=== PATIENT | female | born 1995 | race Hispanic/Latino ===

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

== ENCOUNTER 2017-07-11 12:52 | Emergency (ER) | payer OTHER ==
[~2017-07-11] VITALS: Ht 157.5 cm; Wt 53.2 kg
[~2017-07-11 12:52] MED LIST: IRON65TA PO
[2017-07-11 12:53] VITALS: BP 126/67
[2017-07-11] MEDS ORDERED: CELE100C PO (13:03)
[2017-07-11] MEDS ORDERED: KETOROLAC 30 MG/ML VIAL (J1885) IV ONE (13:15)
[2017-07-11] MEDS ORDERED: NS 1,000 ML IV ONE (13:15)
[2017-07-11] MEDS ORDERED: PANTOPRAZOLE 40MG TAB (PROTONIX) PO ONE (13:15)
[2017-07-11] MEDS ORDERED: ONDANSETRON 4MG/2ML VIAL (J2405) IV ONE (13:15)
[2017-07-11] MEDS: MORPHINE 2 MG/ML 1ML SYRINGE IV PRN ×2 (13:34→15:16)
[2017-07-11 13:54] LABS: MEAN CORPUSCULAR VOLUME 87.3 fl (80.0-96.0); WHITE BLOOD COUNT 10.3 10^3/uL (4.0-10.0)
[2017-07-11 13:55] LABS: BASO % 0.3 % (0.0-1.0); EOS # 0.1 10^3/uL (0.0-0.50); EOS % 0.5 % (0.0-3.0); IMMATURE GRANULOCYTE % 0.3 % (0-0); LYMPH # 1.7 10^3/uL (1.5-6.5); LYMPH % 16.2 % (24.0-44.0); MEAN CORPUSCULAR HEMOGLOBIN 28.8 pg (27.0-33.0); MEAN CORPUSCULAR HGB CONC 32.9 g/dl (32.0-36.5); MONO % 10.1 % (0.0-5.0); NEUTROPHILS # 7.5 10^3/uL (1.8-7.7); NEUTROPHILS % 72.6 % (36.0-66.0); PLATELET COUNT, AUTOMATED 308 10^3/uL (150-450); RED CELL DISTRIBUTION WIDTH 11.8 % (11.5-14.5)
[2017-07-11 13:57] LABS: ADD MANUAL DIFFER NO; DIFF SLIDE NUMBER 232
[2017-07-11] MEDS ORDERED: PANTOPRAZOLE 40MG INJ (PROTONIX) (C9113) IV ONE (14:00)
[2017-07-11 14:05] LABS: CONTROL LINE HCG INT CTR LINE PRESENT; INR 0.89
[2017-07-11 14:13] LABS: ALBUMIN 3.5 GM/DL (3.2-5.2); ALBUMIN/GLOBULIN RATIO 0.74 (1.00-1.93); ALKALINE PHOSPHATASE 95 U/L (45-117); ALT/SGPT 22 U/L (12-78); AMYLASE 56 U/L (25-115); ANION GAP 6 MEQ/L (8-16); AST/SGOT 17 U/L (15-37); BILIRUBIN,DIRECT < 0.1 MG/DL (0.0-0.2); BILIRUBIN,TOTAL 0.3 MG/DL (0.2-1.0); BLOOD UREA NITROGEN 10 MG/DL (7-18); CALCIUM LEVEL 8.6 MG/DL (8.5-10.1); CARBON DIOXIDE LEVEL 27 MEQ/L (21-32); CHLORIDE LEVEL 105 MEQ/L (98-107); CREATININE FOR GFR 0.72 MG/DL (0.55-1.02); GLUCOSE, FASTING 77 MG/DL (70-105); POTASSIUM SERUM 3.6 MEQ/L (3.5-5.1); SODIUM LEVEL 138 MEQ/L (136-145); TOTAL PROTEIN 8.2 GM/DL (6.4-8.2)
[2017-07-11] MEDS ORDERED: ISOVUE-370 76% 100ML VIAL (Q9967) As Ordered ONE (14:17)
--- NOTE | 2017-07-11 15:05 | REP ---
CT abdomen and pelvis with IV but without oral contrast: History: Abdominal pain. CT contrast dose: 100 ml of Isovue [address] findings: Preliminary digital physical therapist assistant radiograph of the abdomen demonstrates umbilical jewelry and a normal bowel gas pattern. The lung bases are clear. The liver and the spleen are normal in size and homogeneous in texture. There is a small accessory splenule at the inferior tip of the spleen. No pancreatic abnormality is appreciated. No adrenal lesion is observed. Gallbladder is unremarkable. The kidneys enhance symmetrically and are morphologically intact. No abdominal wall defect is seen. There are areas of a minimal pelvic ascites. A normal appendix is seen. There is, however, mural thickening affecting essentially the entire colon from the cecum around to the rectosigmoid colon. There is also mural thickening in at least two adjacent loops of central abdominal small bowel. This is compatible with enterocolitis. No free air is seen. Urinary bladder is intact. No bony destructive lesion seen. Impression: Enteritis/enterocolitis picture with mural thickening involving two adjacent loops of mid abdominal small bowel as well as most of the colon. Minimal pelvic ascitic fluid. Normal appendix. Signed by Alfred Randhawa MD 07/11/2017 04:44 P
[2017-07-11] MEDS ORDERED: ZOFR4TAB3 PO (15:19)
[2017-07-11] MEDS ORDERED: PROT1TAB2 PO (15:19)
== END 2017-07-11 15:28 | disposition home or self-care (01) ==
LOC: M ED 12:52
DX: A04.9 Bacterial intestinal infection, unspecified (principal); Z79.899 Other long term (current) drug therapy; Z91.040 Latex allergy status
CPT/HCPCS: 74177; 80048; 80076; 81001; 82150; 83690; 84703; 85025; 85610; 87086; 93041; 96361; 96374; 96375; 96376; 99284; C9113; J1885; J2405; Q9967

== ENCOUNTER 2018-12-06 09:19 | Inpatient (IN) | payer OTHER ==
[~2018-12-06] VITALS: Ht 157.5 cm; Wt 58.0 kg
[2018-12-06] MEDS: NICOTINE 21MG/24HR 1 EA TRANSDERMAL TD SCH (09:00)
[~2018-12-06 09:19] MED LIST changes: +CELE100C PO; +PROT1TAB2 PO; +ZOFR4TAB14 PO
[2018-12-06] MEDS ORDERED: TRAZ-160 PO (09:31)
[2018-12-06] MEDS ORDERED: FLUO40CA PO (09:31)
[2018-12-06] MEDS ORDERED: LIDOCAINE 2% W/EPIN INJ 20ML **PRES FREE INJ ONE (10:00)
[2018-12-06 11:20] LABS: AMPHETAMINES LEVEL URINE NEGATIVE (NEGATIVE); BARBITURATES URINE NEGATIVE (NEGATIVE); BENZODIAZEPINES URINE NEGATIVE (NEGATIVE); CANNABINOIDS URINE NEGATIVE (NEGATIVE); COCAINE METABOLITE URINE NEGATIVE (NEGATIVE); METHADONE URINE NEGATIVE (NEGATIVE); OPIATES URINE NEGATIVE (NEGATIVE); PHENCYCLIDINE URINE NEGATIVE (NEGATIVE)
[2018-12-06 11:35] LABS: HEMATOCRIT 38.8 % (36.0-47.0); HEMOGLOBIN 13.6 g/dl (12.0-15.5); MEAN CORPUSCULAR HEMOGLOBIN 31.4 pg (27.0-33.0); MEAN CORPUSCULAR HGB CONC 35.1 g/dl (32.0-36.5); MEAN CORPUSCULAR VOLUME 89.6 fl (80.0-96.0); PLATELET COUNT, AUTOMATED 243 10^3/uL (150-450); RED BLOOD COUNT 4.33 10^6/uL (4.00-5.40); WHITE BLOOD COUNT 6.2 10^3/uL (4.0-10.0)
[2018-12-06] MEDS ORDERED: FLUoxetine 20 MG CAP PO ONE (11:45)
[2018-12-06] MEDS ORDERED: BACITRACIN OINT 30GM TOP ONE (11:45)
[2018-12-06 12:05] LABS: HCG, SERUM QUALITATIVE NEGATIVE (NEGATIVE)
[2018-12-06 12:15] LABS: ACETAMINOPHEN LEVEL < 2.0 UG/ML (10.0-30.0); ALBUMIN 3.8 GM/DL (3.2-5.2); ALT/SGPT 16 U/L (12-78); BILIRUBIN,DIRECT 0.2 MG/DL (0.0-0.2); BILIRUBIN,TOTAL 0.7 MG/DL (0.2-1.0); BLOOD UREA NITROGEN 8 MG/DL (7-18); CALCIUM LEVEL 8.5 MG/DL (8.5-10.1); CARBON DIOXIDE LEVEL 26 MEQ/L (21-32); CHLORIDE LEVEL 107 MEQ/L (98-107); CREATININE FOR GFR 0.54 MG/DL (0.55-1.30); ETHYL ALCOHOL (ETHANOL) < 0.003 % (0.000-0.010); GLOMERULAR FILTRATION RATE > 60.0 (>60); GLUCOSE, FASTING 94 MG/DL (70-100); POTASSIUM SERUM 3.7 MEQ/L (3.5-5.1); SALICYLATE LEVEL < 1.7 MG/DL (5.0-30.0); SODIUM LEVEL 140 MEQ/L (136-145); TOTAL PROTEIN 6.7 GM/DL (6.4-8.2)
[2018-12-06] MEDS ORDERED: VITA100066 PO (12:51)
[2018-12-06] MEDS ORDERED: COLA100C5 PO (12:51)
[2018-12-06] MEDS ORDERED: traZODone 50 MG TAB PO PRN (14:45)
[2018-12-06] MEDS ORDERED: ACETAMINOPHEN TAB 650MG DOSE (2X325MG) PO PRN (14:45)
[2018-12-06] MEDS ORDERED: MAALOX 30 ML SUSP *UDC PO PRN (14:45)
[2018-12-06] MEDS ORDERED: MOM 30ML SUSPENSION UDC PO PRN (14:45)
[2018-12-06 16:21] VITALS: BP 107/58
[2018-12-07 06:37] VITALS: BP 111/57
[2018-12-07] MEDS: NICOTINE 21MG/24HR 1 EA TRANSDERMAL TD SCH (08:27)
--- NOTE | 2018-12-07 09:14 | HPEPDOC ---
[facility] Medical History & Physical Date of Admission Dec 06, 2018 History and Physical PCP: [facility] ATTENDING: Dr. Robbie Arevalo HPI: 23yoF admitted to [facility] for unspecified depressive disorder, being medically examined today. No acute medical complaints today. Pt with laceration/sutures intact Lt AC. Denies any fevers, chills, weakness, fatigue, JANE, CP, SOB, cough, palpitations, abdominal pain, N/V/D or changes in bowel or bladder habits. PMHx: Anxiety depression insomnia PTSD H/O SI/SA, cutting Lt AC 12/06/18, attempted OD 2 weeks ago on deployment in [place] with Prozac/Oxy with inpt Psych in [place]. PSHX: D&C 2014. 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 Tobacco use: denies ETOH: denies Illicit Drugs: H/O oxycodone/hydrocodone 2015. IV Drug Use: Denies Tattoos done unprofessionally: Denies FAMHX: Mother: Alive, well Father: unknown Siblings: 2 brothers, 1 sister Alive, well Children: none Unexpected deaths due to medical reasons: None. ROS: As noted in HPI, otherwise 11pt ROS of systems reviewed and remarkable only for LMP 12/18 per pt. States cycles are irregular. PE: GEN: 23yoF, appears stated age. Well-nourished, well developed. No acute distress. Alert and oriented x 3. Pleasant, interactive. HEENT: Normocephalic, atraumatic. Pupils are equal, round, and reactive to light. Extraocular movements are intact. No nystagmus appreciated. Sclera are nonicteric. Conjunctiva without injection. Nose midline. Nasal turbinates without bogginess. EACs both patent BL. TMs both visualized and [place] with good cone of light, no bulging or erythema. No facial asymmetry. Moist mucous membranes. Dentition fair. Pharynx pink and moist, no cobblestoning. Neck supple, trachea midline. No lymphadenopathy or thyromegaly appreciated. CHEST: Regular rate and rhythm, +S1, +S2 LUNGS: Clear to auscultation bilaterally. No wheezes, rales, or rhonchi. Breathing appears symmetric and easy. Patient is speaking in full sentences. No accessory muscle use. ABD: Round, soft, non-tender, non-distended. +Bowel sounds throughout. No rebound or guarding. No costovertebral angle tenderness. EXT: Pulses 2+ bilaterally dorsalis pedis and radial. No lower extremity edema appreciated. SKIN: [place], dry, warm. Capillary refill <2sec. No rashes. Sutures intact Lt AC. NEURO: Alert and oriented x 3. Cranial nerves III-XII are intact. No focal deficits appreciated. EKG: pending. A&P: 23yoF admitted to [facility] for unspecified depressive disorder 1. Psych. Plan per Psychiatry. Obtain baseline EKG to assure the safety of psychiatric medications as they can prolong the QT interval. 2. Hcg is noted to be negative. 3. Lt AC laceration. Sutures intact. Keep area clean and dry. Dry dressing if needed. Plan to remove sutures 7-10 days Monitor for any signs of infection. 4. Follow up with PCP on discharge. 5. Staff member Lianne Doty RN present throughout exam. Vital Signs Vital Signs Date Time Temp Pulse Resp B/P (MAP) Pulse Ox O2 Delivery O2 Flow Rate FiO2 12/07/18 08:54 Room Air 12/07/18 06:37 99.2 72 14 111/57 (75) 12/06/18 16:21 99 Laboratory Data Labs 24H Laboratory Tests 2 12/06/18 10:10: Nucleated Red Blood Cells % (auto) 0.0, Anion Gap 7L, Glomerular Filtration Rate > 60.0, Calcium Level 8.5, Aspartate Amino Transf (AST/SGOT) 17, Alanine Aminotransferase (ALT/SGPT) 16, Alkaline Phosphatase 88, Total Bilirubin 0.7, Direct Bilirubin 0.2, Total Protein 6.7, Albumin 3.8, Albumin/Globulin Ratio 1.31, Thyroid Stimulating Hormone (TSH) 1.130, Human Chorionic Gonadotropin, Qual NEGATIVE, Salicylates Level < 1.7L, Urine Amphetamines Screen NEGATIVE, Urine Benzodiazepines Screen NEGATIVE, Urine Opiates Screen NEGATIVE, Urine Methadone Screen NEGATIVE, Acetaminophen Level < 2.0L, Urine Barbiturates Screen NEGATIVE, Urine Phencyclidine Screen NEGATIVE, Urine Cocaine Metabolite Screen NEGATIVE, Urine Cannabinoids Screen NEGATIVE, Ethyl Alcohol Level < 0.003 CBC/BMP Laboratory Tests 12/06/18 10:10 Red Blood Count 4.33, Mean Corpuscular Volume 89.6, Mean Corpuscular Hemoglobin 31.4, Mean Corpuscular Hemoglobin Concent 35.1, Red Cell Distribution Width 12.1 Home Medications Scheduled Cholecalciferol (Vitamin D) 1,000 Unit Tab, 1,000 UNIT PO DAILY Fluoxetine Hcl (Fluoxetine HCl) 40 Mg Cap, 40 MG PO DAILY Trazodone HCl (Trazodone HCl) 50 Mg Tab, 50 MG PO QHS Scheduled PRN Docusate Sodium (Colace) 100 Mg Cap, 100 MG PO BID PRN for CONSTIPATION Allergies Coded Allergies: Latex (Verified Allergy, Unknown, 12/23/16) Zhanna Farias Dec 07, 2018 09:14
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
[2018-12-07] MEDS ORDERED: FLUoxetine 20 MG CAP PO ONE (12:30)
[2018-12-07] MEDS ORDERED: ARIPiprazole 2 MG TAB PO ONE (12:45)
[2018-12-07 18:00] VITALS: BP 115/57
[2018-12-07] MEDS ORDERED: PRAZOSIN 1 MG CAP PO SCH (21:00)
[2018-12-07] MEDS: ARIPiprazole 2 MG TAB PO SCH (23:07)
[2018-12-08 06:00] VITALS: BP 107/54
--- NOTE | 2018-12-08 07:24 | ECGEPIP ---
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
[2018-12-08] MEDS: NICOTINE 21MG/24HR 1 EA TRANSDERMAL TD SCH (09:00)
[2018-12-08] MEDS: ARIPiprazole 2 MG TAB PO SCH ×2 (09:33→21:03)
[2018-12-08] MEDS: hydrOXYzine 25 MG TAB PO PRN (09:33)
[2018-12-08] MEDS: FLUoxetine 20 MG CAP PO SCH (09:33)
--- NOTE | 2018-12-08 09:59 | MHIPNPDOC ---
[facility] Progress Note Progress Note DATE OF SERVICE: 12/08/18 HISTORY: Patient is a 23 -year-old , AD, female, with a history of OD (prozac/oxycontin) 2-3wks ago as SA while stationed in [facility] that required medical treatment and psych treatment in [facility] prior to returning to recently who was brought by EMS on 9.41 after she called boyfriend in [place] b/c she cut her left AC as a suicide attempt. 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 Endorsed depressed mood, anxiety, insomnia, poor appetite in the ED. VITAL SIGNS: See below. NEW TEST RESULTS: see below CURRENT MEDICATIONS: See below. MENTAL STATUS EXAMINATION: General Appearance: well groomed, appears stated age, hospital scrubs/clothing Build: average Demeanor: average Eye Contact: average Activity: average Behavior: cooperative, withdrawn Speech: clear, spontaneous, normal volume, reg/rate,rhythm,volume Mood: depressed, anxious Mood "better" Affect: constricted, flat, anxious Thought Process: logical/linear, depressed, impulsive Thought Content (Delusions): none reported, denies SI, HI, AVH Thought Content (Other): none reported Thought Content (Aggressive): none reported Perception (Hallucinations): none reported Perception (Other): none reported Cognition (Impairment of): none reported Cognition(Intelligence Est.): average Oriented: Awake, Alert, Oriented times three Insight: fair Judgment: Fair Psychosis: Denies DIAGNOSES: PTSD Depression unspecified ASSESSMENT:Pt and states she feels "better" today. States had difficulty sleeping last night with trazodone and had nightmares despite taking prazosin. Agreeable to increasing both the see if it helps. States she's tolerating prozac andd abilify and feels they're some-what beneficial. D/c event planner spoke with pt regarding correction treatment in [place] that [facility] is recommending which pt declined. Due to pt declining she was made aware from [facility] and [facility]leen that she will be placed on 1:1 sitter in [place] as [employer] and [facility] very concerned she will attempt suicide again. Spoke to pt about this and stated she's just uncomfortable going to new places like [place] were she was told correction treatment would be. Spoke to her about correction treatment in [place] and she is more accepting of that as she has family in [place]. Today she denies SI/HI, hallucinations, delusions. Feels safe here. MANAGEMENT PLAN: continue plan Medications: prozac 10mg daily trazodone 100mg qhs prn insomnia prazosin 2mg qhs abilify 2mg bid. TIME SPENT: 30 minutes. Vital Signs Vital Signs Date Time Temp Pulse Resp B/P (MAP) Pulse Ox O2 Delivery O2 Flow Rate FiO2 12/08/18 06:00 99.1 73 12 107/54 (71) 12/07/18 08:54 Room Air 12/06/18 16:21 99 Current Medications Current Medications Acetaminophen (Tylenol Tab) 650 mg Q6HP PRN PO HEADACHE or DISCOMFORT; Start 12/06/18 at 14:45 Al Hydrox/Mg Hydrox/Simethicone (Mylanta) 30 ml Q4HP PRN PO HEARTBURN/INDIGESTION; Start 12/06/18 at 14:45 Aripiprazole (AbiLIFY) 2 mg BID PO Last administered on 12/08/18 09:33; Start 12/07/18 at 21:00 Fluoxetine HCl (PROzac) 40 mg DAILY PO Last administered on 12/08/18at 09:33; Start 12/08/18 at 09:00 Home Med (Med Rec Complete!) ASDIRECTED XX ; Start 12/06/18 at 13:00; Stop 12/06/18 at 13:00; Status DC Hydroxyzine HCl (Atarax) 25 mg Q6HP PRN PO ANXIETY Last administered on 12/08/18at 09:33; Start 12/07/18 at 12:30 Magnesium Hydroxide (Milk Of Magnesia) 30 ml DAILYPRN PRN PO CONSTIPATION; Start 12/06/18 at 14:45 Nicotine (Nicoderm Cq 21mg) 1 patch DAILY TD ; Start 12/06/18 at 09:00 Prazosin HCl (Minipress) 1 mg QHS PO Last administered on 12/07/18at 20:38; Start 12/07/18 at 21:00 Trazodone HCl (Desyrel) 50 mg QHSP PRN PO INSOMNIA Last administered on 12/06/18at 20:40; Start 12/06/18 at 14:45 Allergies Coded Allergies: Latex (Verified Allergy, Unknown, 12/23/16) MANISH Tripathi DO Dec 08, 2018 9:59 am
[2018-12-08 18:03] VITALS: BP 113/56
[2018-12-08] MEDS: PRAZOSIN 1 MG CAP PO SCH (21:03)
[2018-12-08] MEDS: traZODone 100 MG TAB PO PRN (21:03)
[2018-12-09 06:17] VITALS: BP 130/59
[2018-12-09] MEDS: NICOTINE 21MG/24HR 1 EA TRANSDERMAL TD SCH (08:54)
[2018-12-09] MEDS: ARIPiprazole 2 MG TAB PO SCH ×2 (08:55→20:57)
[2018-12-09] MEDS: FLUoxetine 20 MG CAP PO SCH (08:55)
[2018-12-09 18:36] VITALS: BP 110/60
[2018-12-09] MEDS: hydrOXYzine 25 MG TAB PO PRN (20:57)
[2018-12-09] MEDS: traZODone 100 MG TAB PO PRN (20:57)
[2018-12-09] MEDS: PRAZOSIN 1 MG CAP PO SCH (20:58)
[2018-12-10 06:11] VITALS: BP 125/56
[2018-12-10] MEDS: NICOTINE 21MG/24HR 1 EA TRANSDERMAL TD SCH (09:00)
[2018-12-10] MEDS: FLUoxetine 20 MG CAP PO SCH (09:44)
[2018-12-10] MEDS: ARIPiprazole 2 MG TAB PO SCH ×2 (09:44→20:53)
[2018-12-10] MEDS: hydrOXYzine 25 MG TAB PO PRN ×2 (14:10→20:55)
[2018-12-10 18:00] VITALS: BP 128/67
[2018-12-10] MEDS: PRAZOSIN 1 MG CAP PO SCH (20:54)
[2018-12-10] MEDS: traZODone 100 MG TAB PO PRN (20:55)
[2018-12-11 06:18] VITALS: BP 110/58
[2018-12-11] MEDS: ARIPiprazole 2 MG TAB PO SCH ×2 (08:22→21:26)
[2018-12-11] MEDS: FLUoxetine 20 MG CAP PO SCH (08:22)
[2018-12-11] MEDS: NICOTINE 21MG/24HR 1 EA TRANSDERMAL TD SCH (08:23)
--- NOTE | 2018-12-11 08:57 | IPNPDOC ---
Date Seen The patient was seen on 12/11/18. Progress Note PCP: PSYCHIATRIC ATTENDING: Dr. Robbie Arevalo HPI: 23yoF admitted to [facility] for unspecified depressive disorder, being medically examined today. No acute medical complaints today. Pt with laceration/sutures intact Lt AC. I am requested to evaluate skin lesion nasal area. 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 States 2-3 days ago she noted skin lesions which were blisters with itching sensation. Now appear crusted and scabbed, no drainage. Denies any fevers, chills, weakness, fatigue, JANE, CP, SOB, cough, palpitations, abdominal pain, N/V/D or changes in bowel or bladder habits. PMHx: Anxiety depression insomnia PTSD H/O SI/SA, cutting Lt AC 12/06/18, attempted OD 2 weeks ago on deployment in [facility] [place] [facility] with Prozac/Oxy with inpt Psych in [place]. oral HSV PSHX: D&C 2014. PE: GEN: 23yoF, appears stated age. Well-nourished, well developed. No acute distress. Alert and oriented x 3. HEENT: Normocephalic, atraumatic. Sclera are nonicteric. Conjunctiva without injection. Nose midline. There is a small scabbed, crusted area under nares. Moist mucous membranes. CHEST: Regular rate and rhythm, +S1, +S2 LUNGS: Clear to auscultation bilaterally. No wheezes, rales, or rhonchi. ABD: Round, soft, non-tender, non-distended. +Bowel sounds throughout. EXT: No lower extremity edema appreciated. SKIN: [place], dry, warm. Sutures intact Lt AC. Appears to be healing. NEURO: Alert and oriented x 3. No focal deficits appreciated. EKG: SINUS BRADYCARDIA WITH SINUS ARRHYTHMIA Comparison tracing not on file Electronically Signed On 12-08-2018 7:24:02 EST by Benigno Sampson A&P: 23yoF admitted to [facility] for unspecified depressive disorder 1. Psych. Plan per Psychiatry. EKG on file. 2. Hcg is noted to be negative. 3. Lt AC laceration with sutures placed 12/06/18. Sutures intact. Keep area clean and dry. Dry dressing if needed. Plan to remove sutures 7-10 days Monitor for any signs of infection. 4. Follow up with PCP on discharge. 5. HSV. Apply topical Acyclovir to area QID x 4 days. Monitor. 6. Staff member Mallika PHELPS present throughout exam. VS, I&O, 24H, Fishbone Vital Signs/I&O Vital Signs Date Time Temp Pulse Resp B/P (MAP) Pulse Ox O2 Delivery O2 Flow Rate FiO2 12/11/18 06:18 98.0 75 16 110/58 (75) 12/07/18 08:54 Room Air 12/06/18 16:21 99 Zhanna Landers Dec 11, 2018 08:57
[2018-12-11] MEDS: ACYCLOVIR 5% OINT 15GM TOP SCH ×4 (09:45→21:27)
--- NOTE | 2018-12-11 10:27 | MHIPNPDOC ---
[facility] Progress Note Progress Note DATE OF SERVICE: 12/11/18 HISTORY: Patient is a 23 -year-old , AD, female, with a history of OD (prozac/oxycontin) 2-3wks ago as SA while stationed in [facility] that required medi lolita treatment and psych treatment in [place] prior to returning to recently who was brought by EMS on 9.41 after she called boyfriend in [place] b/c she cut her left AC as a suicide attempt. 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 Endorsed depressed mood, anxiety, insomnia, poor appetite in the ED. VITAL SIGNS: See below. NEW TEST RESULTS: see below CURRENT MEDICATIONS: See below. MENTAL STATUS EXAMINATION: General Appearance: well groomed, appears stated age, hospital scrubs/clothing Build: average Demeanor: average Eye Contact: average Activity: average Behavior: cooperative Speech: clear, spontaneous, normal volume, reg/rate,rhythm,volume Mood: less depressed, less anxious Mood "ok" Affect: less constricted, and flat, less anxious Thought Process: logical/linear, less depressed Thought Content (Delusions): none reported, denies SI, HI, AVH Thought Content (Other): none reported Thought Content (Aggressive): none reported Perception (Hallucinations): none reported Perception (Other): none reported Cognition (Impairment of): none reported Cognition(Intelligence Est.): average Oriented: Awake, Alert, Oriented times three Insight: fair Judgment: Fair Psychosis: Denies DIAGNOSES: PTSD Depression unspecified ASSESSMENT:Pt and states she feels "better" today. States trazodone with hydroxyzine are helpful for insomnia and nightmares Nightmares are improving with prazosin. States she's tolerating prozac and abilify and feels they're some-what beneficial. Pt continues to decline long term treatment in [place] at this time she states b/c she's supposed to get this coming weekend and doesn't want to put it off even though encouraged to due to her recent hospitalizations and suicide attempts. States it's something she still wants to go thru with and believes it will be beneficial to her. States her fiance is coming home from training this week and believes him being closer to her will also be beneficial for her as he's very supportive. States she plans to do outpatient treatment PHP program and is [place]1 sitter thru her [facility]leen. States if that doesn't work then will agree to go to long term treatment thru [facility]. Is attending groups and feels they're beneficial. She denies SI/HI, hallucinations, delusions. Feels safe here. MANAGEMENT PLAN: continue plan Medications: prozac 10mg daily trazodone 100mg qhs prn insomnia vistaril 25mg q6hr prn anxiety prazosin 2mg qhs abilify 2mg bid. TIME SPENT: 30 minutes. Vital Signs Vital Signs Date Time Temp Pulse Resp B/P (MAP) Pulse Ox O2 Delivery O2 Flow Rate FiO2 12/11/18 06:18 98.0 75 16 110/58 (75) 12/07/18 08:54 Room Air 12/06/18 16:21 99 Current Medications Current Medications Acetaminophen (Tylenol Tab) 650 mg Q6HP PRN PO HEADACHE or DISCOMFORT; Start 12/06/18 at 14:45 Acyclovir (Zovirax) 1 dose QID TOP Last administered on 12/11/18at 09:45; Start 12/11/18 at 09:00; Stop 12/14/18 at 21:01 Al Hydrox/Mg Hydrox/Simethicone (Mylanta) 30 ml Q4HP PRN PO HEARTBURN/INDIGE STION; Start 12/06/18 at 14:45 Aripiprazole (AbiLIFY) 2 mg BID PO Last administered on 12/11/18at 08:22; Start 12/07/18 at 21:00 Fluoxetine HCl (PROzac) 40 mg DAILY PO Last administered on 12/11/18at 08:22; Start 12/08/18 at 09:00 Home Med (Med Rec Complete!) ASDIRECTED XX ; Start 12/06/18 at 13:00; Stop 12/06/18 at 13:00; Status DC Hydroxyzine HCl (Atarax) 25 mg Q6HP PRN PO ANXIETY Last administered on 12/10/18at 20:55; Start 12/07/18 at 12:30 Magnesium Hydroxide (Milk Of Magnesia) 30 ml DAILYPRN PRN PO CONSTIPATION; Start 12/06/18 at 14:45 Nicotine (Nicoderm Cq 21mg) 1 patch DAILY TD ; Start 12/06/18 at 09:00 Prazosin HCl (Minipress) 1 mg QHS PO Last administered on 12/07/18at 20:38; Start 12/07/18 at 21:00; Stop 12/08/18 at 10:00; Status DC Prazosin HCl (Minipress) 2 mg QHS PO Last administered on 12/10/18at 20:54; Start 12/08/18 at 21:00 Trazodone HCl (Desyrel) 50 mg QHSP PRN PO INSOMNIA Last administered on 12/06/18at 20:40; Start 12/06/18 at 14:45; Stop 12/08/18 at 10:00; Status DC Trazodone HCl (Desyrel) 100 mg QHSP PRN PO INSOMNIA Last administered on 12/10/18at 20:55; Start 12/08/18 at 10:00 Allergies Coded Allergies: Latex (Verified Allergy, Unknown, 12/23/16) MANISH Tripathi DO Dec 11, 2018 10:27 am
[2018-12-11] MEDS: hydrOXYzine 25 MG TAB PO PRN ×2 (15:02→21:26)
--- NOTE | 2018-12-11 15:41 | MHIPN ---
DATE: 12/10/2018 The patient today states, "I am doing pretty good." Again, she slept better but with some restlessness, but she still wants to continue the same dose of the trazodone. MENTAL STATUS EXAMINATION: She is alert and oriented times three. Eye contact is fair. Psychomotor activity is normal. She is verbally spontaneous. There is no formal thought disorder noted. Mood is good. Affect is full range and appropriate. She is not psychotic, suicidal or homicidal. Concentration and memory good. Insight and judgment good. DIAGNOSES: 1. Posttraumatic stress disorder (PTSD). 2. Unspecified depressive disorder. TREATMENT PLAN: We will continue to monitor the patient for continued elevation and stabilization of her mood and for continued resolution of any suicidal ideations.
--- NOTE | 2018-12-11 15:43 | MHIPN ---
DATE: 12/09/2018 The patient today states that she is feeling a lot better. Still, her mood is 2/10 with the closest to 10 as the most depressed. She really feels that her medications are helping her feel better. She slept last night, but with some restlessness. The Seroquel was just increased yesterday and she really does not want to increase it further today. MENTAL STATUS EXAMINATION: She is alert and oriented times three. Pleasant and cooperative. Verbally spontaneous. Eye contact is good. There is no formal thought disorder noted. Mood is "better." Affect full range and appropriate. She is not psychotic, suicidal or homicidal. Concentration is fair. Memory intact. Insight and judgment is fair. DIAGNOSES: 1. Posttraumatic stress disorder. 2. Unspecified depressive disorder. TREATMENT PLAN: We will continue to monitor the patient for continued elevation and stabilization of her mood and continued resolution of suicidal ideation.
[2018-12-11 18:00] VITALS: BP 140/69
[2018-12-11 21:25] VITALS: BP 124/76
[2018-12-11] MEDS: PRAZOSIN 1 MG CAP PO SCH (21:25)
[2018-12-11] MEDS: traZODone 100 MG TAB PO PRN (21:26)
[2018-12-12 06:43] VITALS: BP 126/59
[2018-12-12] MEDS ORDERED: TRAZ10TA PO (08:51)
[2018-12-12] MEDS ORDERED: FLUO20CA19 PO (08:51)
[2018-12-12] MEDS ORDERED: ARIP2TAB PO (08:51)
[2018-12-12] MEDS ORDERED: HYDR-3363 PO (08:51)
[2018-12-12] MEDS ORDERED: MINI1CAP PO (08:51)
--- NOTE | 2018-12-12 08:52 | MHDSPDOC ---
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 Endorsed depressed mood, anxiety, insomnia, poor appetite in the ED. CONSULTANTS INVOLVED: none TREATMENT AND PROGRESS ON THE UNIT : Pt was admitted to [facility], seen for psychiatric assessment and restarted on prozac 40mg daily and started on abilify 2mg qhs, and prazosin 2mg qhs. She was provided vistaril 25mg q6hr prn anxiety and trazodone 100mg qhs prn insomnia. Pt found her medications beneficial and tolerated them well. She attended groups daily during her stay. Her symptoms improved moderately with treatment. On day of discharge she denied depression, anxiety, insomnia, SI/HI, hallucinations, delusions. She wsa future oriented toward her fiance coming home from training [employer] and them getting this up coming weekend. She was discharged to [facility] on 1:1 (decision made with [facility] opinion due to [facility] fear pt would attempt to harm herself if discharged directly home immediatedly0 with Colleen with follow-up at [facility] php program. She felt safe for discharge. DISCHARGE ASSESSMENT: Pt and states she feels "good" today and is looking forw josh to being discharged to the [facility]. She is ok with being on 1:1 sitter at the [facility] as she's just happpy her fiance will be home from training [employer] for them to get this weekend. She's greatly looking forward to seeing and feels he's a big support for her. she dies SI and states she doesn't want to harm herself. States she's sleeping well and nightmares are improved with prazosin. States she's tolerating prozac and abilify and feels they're beneficial. Pt continues to decline usp treatment in [place] at this time she states b/c she's supposed to get this coming weekend and doesn't want to put it off even though encouraged to due to her recent hospitalizations and suicide attempts. States it's something she still wants to go thru with and believes it will be beneficial to her. States she's looking foraward to outpatient treatment [facility] PHP program and is fine with being in the [facility] on 1:1 sitter thru her Colleen. States if that doesn't work then will agree to go to usp treatment thru [facility]. Is attending groups and feels they're beneficial. She denies depression, anxiety, insomnia, SI/HI, hallucinations, delusions. Feels safe to be discharged to [facility] with Colleen. MENTAL STATUS EXAMINATION ON DISCHARGE: General Appearance: well groomed, appears stated age, hospital scrubs/clothing Build: average Demeanor: average Eye Contact: average Activity: average Behavior: cooperative Speech: clear, spontaneous, normal volume, reg/rate,rhythm,volume Mood: euthymic, full Mood "good" Affect: euthymic, full Thought Process: logical/linear, less depressed Thought Content (Delusions): none reported, denies SI, HI, AVH Thought Content (Other): none reported Thought Content (Aggressive): none reported Perception (Hallucinations): none reported Perception (Other): none reported Cognition (Impairment of): none reported Cognition(Intelligence Est.): average Oriented: Awake, Alert, Oriented times three Insight: fair Judgment: Fair Psychosis: Denies MEDICATIONS ON DISCHARGE: prozac 40mg daily trazodone 100mg qhs prn insomnia vistaril 25mg q6hr prn anxiety prazosin 2mg qhs abilify 2mg bid. PLAN/FOLLOWUP ARRANGEMENTS: D/c to [facility] on 1:1 with Colleen with follow-up at [facility]. The amount of time spent in the coordination of care for this patient was approximately 30 minutes. Vital Signs/I&Os Vital Signs Date Time Temp Pulse Resp B/P (MAP) Pulse Ox O2 Delivery O2 Flow Rate FiO2 12/12/18 06:43 97.0 89 12 126/59 (81) 12/07/18 08:54 Room Air 12/06/18 16:21 99 Medications Scheduled Cholecalciferol (Vitamin D) 1,000 Unit Tab, 1,000 UNIT PO DAILY, (Reported) Fluoxetine Hcl (Fluoxetine HCl) 40 Mg Cap, 40 MG PO DAILY, (Reported) Trazodone HCl (Trazodone HCl) 50 Mg Tab, 50 MG PO QHS, (Reported) Scheduled PRN Docusate Sodium (Colace) 100 Mg Cap, 100 MG PO BID PRN for CONSTIPATION, (Reported) Allergies Coded Allergies: Latex (Verified Allergy, Unknown, 12/23/16) MANISH Tripathi DO Dec 12, 2018 8:52 am
[2018-12-12] MEDS: NICOTINE 21MG/24HR 1 EA TRANSDERMAL TD SCH (09:00)
[2018-12-12] MEDS: FLUoxetine 20 MG CAP PO SCH (09:19)
[2018-12-12] MEDS: ARIPiprazole 2 MG TAB PO SCH (09:19)
[2018-12-12] MEDS: ACYCLOVIR 5% OINT 15GM TOP SCH (09:19)
== END 2018-12-12 11:15 | disposition home or self-care (01) | DRG 882 ==
LOC: M ED 09:19 → M ED INP 14:44 → M PSY 16:18
PROVIDERS: ADMIT Psychiatry & Neurology Psychiatry; ATTEND Psychiatry & Neurology Psychiatry
DX: F43.10 Post-traumatic stress disorder, unspecified (principal); F33.2 Major depressive disorder, recurrent severe without psychotic features; Z91.040 Latex allergy status; F41.9 Anxiety disorder, unspecified; G47.00 Insomnia, unspecified; Z79.899 Other long term (current) drug therapy; B00.9 Herpesviral infection, unspecified

== ENCOUNTER 2019-01-07 23:33 | Emergency (ER) | payer OTHER ==
[~2019-01-07] VITALS: Ht 157.5 cm; Wt 59.1 kg
[~2019-01-07 23:33] MED LIST changes: +ARIP1TAB4 PO; +COLA100C5 PO; +FLUO20CA19 PO; +FLUO40CA PO; +HYDR-3363 PO; +MINI1CAP PO; +TRAZ-160 PO; +TRAZ10TA PO; +VITA100066 PO
[2019-01-08 00:41] LABS: BASO % 0.3 % (0.0-1.0); EOS # 0.2 10^3/uL (0.0-0.50); EOS % 2.9 % (0.0-3.0); HEMATOCRIT 35.4 % (36.0-47.0); HEMOGLOBIN 12.6 g/dl (12.0-15.5); LYMPH # 3.1 10^3/uL (1.5-6.5); LYMPH % 49.4 % (24.0-44.0); MEAN CORPUSCULAR HEMOGLOBIN 31.7 pg (27.0-33.0); MEAN CORPUSCULAR HGB CONC 35.6 g/dl (32.0-36.5); MEAN CORPUSCULAR VOLUME 88.9 fl (80.0-96.0); MONO # 0.9 10^3/uL (0.0-0.8); MONO % 13.7 % (0.0-5.0); NEUTROPHILS # 2.1 10^3/uL (1.8-7.7); NEUTROPHILS % 33.2 % (36.0-66.0); PLATELET COUNT, AUTOMATED 217 10^3/uL (150-450); RED BLOOD COUNT 3.98 10^6/uL (4.00-5.40); WHITE BLOOD COUNT 6.2 10^3/uL (4.0-10.0)
[2019-01-08 01:15] LABS: HCG, SERUM QUALITATIVE NEGATIVE (NEGATIVE)
[2019-01-08 01:25] LABS: ALBUMIN 3.5 GM/DL (3.2-5.2); ALT/SGPT 20 U/L (12-78); BILIRUBIN,DIRECT 0.1 MG/DL (0.0-0.2); BILIRUBIN,TOTAL 0.3 MG/DL (0.2-1.0); BLOOD UREA NITROGEN 13 MG/DL (7-18); CALCIUM LEVEL 8.4 MG/DL (8.5-10.1); CARBON DIOXIDE LEVEL 23 MEQ/L (21-32); CHLORIDE LEVEL 109 MEQ/L (98-107); GLOMERULAR FILTRATION RATE > 60.0 (>60); GLUCOSE, FASTING 87 MG/DL (70-100); LIPASE 153 U/L (73-393); POTASSIUM SERUM 3.9 MEQ/L (3.5-5.1); SODIUM LEVEL 140 MEQ/L (136-145); TOTAL PROTEIN 6.3 GM/DL (6.4-8.2)
[2019-01-08] MEDS ORDERED: ISOVUE-370 76% 100ML VIAL (Q9967) As Ordered ONE (01:59)
[2019-01-08] MEDS ORDERED: ONDANSETRON 4MG/2ML VIAL (J2405) IV ONE (02:00)
[2019-01-08] MEDS ORDERED: KETOROLAC 30 MG/ML VIAL (J1885) IV ONE (02:00)
[2019-01-08 03:00] VITALS: BP 86/47
--- NOTE | 2019-01-08 03:28 | REPVR ---
EXAM: CT Angiography Chest With Contrast EXAM DATE/TIME: 01/08/2019 2:14 AM CLINICAL HISTORY: 23 years old, female; Pain; Chest pain; Additional info: Cp TECHNIQUE: Imaging protocol: Axial computed tomographic angiography images of the chest with intravenous contrast using CT angiography protocol. Coronal and sagittal reformatted images were created and reviewed. 3D rendering: MIP reconstructed images were created and reviewed. Radiation optimization: All CT scans at this facility use at least one of these dose optimization techniques: automated exposure control; mA and/or kV adjustment per patient size (includes targeted exams where dose is matched to clinical indication); or iterative reconstruction. Contrast material: iso 370 Contrast volume: 75 ml Contrast route: iv COMPARISON: No relevant prior studies available. FINDINGS: Pulmonary arteries: The main pulmonary artery measures 18 mm. No pulmonary embolism is identified. Aorta: The ascending thoracic aorta measures 20 mm. Lungs: Normal. No consolidation. No masses. Pleural space: Normal. No pneumothorax. No pleural effusion. Heart: Normal. No cardiomegaly. No pericardial effusion. Mediastinum: There is soft tissue conforming to the anterior mediastinum consistent with residual thymic tissue. Lymph nodes: Unremarkable. No enlarged lymph nodes. Bones/joints: Unremarkable. No acute fracture. Soft tissues: Unremarkable. IMPRESSION: Negative CTA chest. No pulmonary embolism is identified. Electronically signed by: Shashank Toure On 01/08/2019 03:27:45 AM
[2019-01-08] MEDS ORDERED: KETO10TAB PO (03:45)
--- NOTE | 2019-01-08 21:30 | ECGEPIP ---
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
== END 2019-01-08 04:00 | disposition home or self-care (01) ==
LOC: M ED 23:33
DX: R07.1 Chest pain on breathing (principal); F33.9 Major depressive disorder, recurrent, unspecified; F41.9 Anxiety disorder, unspecified
CPT/HCPCS: 71275; 80048; 80076; 81001; 83690; 84703; 85025; 93005; 96374; 96375; 99284; J1885; J2405; Q9967

== ENCOUNTER 2019-01-21 20:24 | Emergency (ER) | payer OTHER ==
[~2019-01-21] VITALS: Ht 157.5 cm; Wt 59.1 kg
[~2019-01-21 20:24] MED LIST changes: +KETO10TAB PO
[2019-01-21 22:14] LABS: BASO % 0.6 % (0.0-1.0); EOS # 0.1 10^3/uL (0.0-0.50); EOS % 2.1 % (0.0-3.0); HEMATOCRIT 35.9 % (36.0-47.0); HEMOGLOBIN 12.5 g/dl (12.0-15.5); LYMPH # 2.6 10^3/uL (1.5-6.5); LYMPH % 48.9 % (24.0-44.0); MEAN CORPUSCULAR HEMOGLOBIN 31.2 pg (27.0-33.0); MEAN CORPUSCULAR HGB CONC 34.8 g/dl (32.0-36.5); MEAN CORPUSCULAR VOLUME 89.5 fl (80.0-96.0); MONO # 0.7 10^3/uL (0.0-0.8); MONO % 12.8 % (0.0-5.0); NEUTROPHILS # 1.8 10^3/uL (1.8-7.7); PLATELET COUNT, AUTOMATED 244 10^3/uL (150-450); RED BLOOD COUNT 4.01 10^6/uL (4.00-5.40); WHITE BLOOD COUNT 5.2 10^3/uL (4.0-10.0)
[2019-01-21 22:18] LABS: MYOGLOBIN SCREEN, URINE POSITIVE (NEGATIVE)
[2019-01-21 22:26] LABS: INR 0.94; PROTHROMBIN TIME 12.7 SECONDS (12.1-14.4)
[2019-01-21 22:27] LABS: PARTIAL THROMBOPLASTIN TIME 26.9 SECONDS (25.4-37.6)
[2019-01-21 22:32] LABS: BLOOD UREA NITROGEN 10 MG/DL (7-18); CARBON DIOXIDE LEVEL 24 MEQ/L (21-32); CHLORIDE LEVEL 109 MEQ/L (98-107); CPK CREATINE PHOSPHOKINASE 109 U/L (26-192); CREATININE FOR GFR 0.64 MG/DL (0.55-1.30); GLOMERULAR FILTRATION RATE > 60.0 (>60); GLUCOSE, FASTING 89 MG/DL (70-100); POTASSIUM SERUM 4.1 MEQ/L (3.5-5.1); SODIUM LEVEL 140 MEQ/L (136-145)
[2019-01-21 22:49] LABS: HCG, SERUM QUALITATIVE NEGATIVE (NEGATIVE)
[2019-01-21] MEDS ORDERED: NS 1,000 ML IV ONE (23:45)
[2019-01-22 01:34] VITALS: BP 99/52
--- NOTE | 2019-01-23 01:06 | ECGEPIP ---
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
== END 2019-01-22 01:34 | disposition home or self-care (01) ==
LOC: M ED 20:24
DX: E86.0 Dehydration (principal); R00.1 Bradycardia, unspecified; T43.295A Adverse effect of other antidepressants, initial encounter; Y92.9 Unspecified place or not applicable; Y93.9 Activity, unspecified; F41.9 Anxiety disorder, unspecified; F32.9 Major depressive disorder, single episode, unspecified; F43.10 Post-traumatic stress disorder, unspecified; Z91.5 Personal history of self-harm; Z79.899 Other long term (current) drug therapy; Z91.040 Latex allergy status

== ENCOUNTER 2019-02-20 21:02 | Emergency (ER) | payer OTHER ==
[~2019-02-20] VITALS: Ht 157.5 cm; Wt 61.4 kg
[2019-02-20 21:02] VITALS: BP 117/70
[2019-02-20] MEDS ORDERED: BENA25TA5 PO (21:31)
[2019-02-20] MEDS ORDERED: diphenhydrAMINE INJ 50MG/ML VIAL (J1200) IV ONE (22:00)
[2019-02-20] MEDS ORDERED: methylPREDNISolone INJ 125 MG/2 ML VIAL (J2930) IV ONE (22:00)
[2019-02-20] MEDS ORDERED: hydrALAZINE INJ 20 MG/ML VIAL IV ONE (22:00)
[2019-02-20] MEDS ORDERED: NS 1,000 ML IV ONE (22:00)
[2019-02-20] MEDS ORDERED: hydrOXYzine 25 MG TAB PO STA (22:00)
== END 2019-02-20 23:09 | disposition home or self-care (01) ==
LOC: M ED 21:02
DX: L50.0 Allergic urticaria (principal); F43.10 Post-traumatic stress disorder, unspecified; Z79.899 Other long term (current) drug therapy; Z91.040 Latex allergy status
CPT/HCPCS: 84702; 96374; 99284; J2930

== ENCOUNTER 2019-02-28 12:12 | Inpatient (IN) | payer OTHER ==
[~2019-02-28] VITALS: Ht 157.5 cm; Wt 68.5 kg
[~2019-02-28 12:12] MED LIST changes: +BENA25TA5 PO; -TRAZ-160 PO; +TRAZ-252 PO
[2019-02-28 12:43] LABS: HEMOGLOBIN 13.3 g/dl (12.0-15.5); MEAN CORPUSCULAR HEMOGLOBIN 31.4 pg (27.0-33.0); MEAN CORPUSCULAR VOLUME 89.8 fl (80.0-96.0); PLATELET COUNT, AUTOMATED 216 10^3/uL (150-450); RED BLOOD COUNT 4.23 10^6/uL (4.00-5.40); WHITE BLOOD COUNT 4.4 10^3/uL (4.0-10.0)
[2019-02-28] MEDS ORDERED: FLUO40CA PO (12:57)
--- NOTE | 2019-02-28 12:58 | REP ---
CT cervical spine without contrast HISTORY: Neck pain COMPARISON: None There is no acute fracture or subluxation. There is no disc bulge or herniation. The spinal canal and neural foramina are patent. The intervertebral discs and vertebral bodies are normal in height. There is loss of the normal lordotic curve. IMPRESSION: There is no acute fracture or subluxation. Electronically Signed by Benjy Lr MD 02/28/2019 12:50 P
[2019-02-28] MEDS ORDERED: ONDANSETRON 4MG/2ML VIAL (J2405) IV ONE (13:15)
[2019-02-28 13:20] LABS: ACETAMINOPHEN LEVEL < 2.0 UG/ML (10.0-30.0); ALBUMIN 3.9 GM/DL (3.2-5.2); ALT/SGPT 27 U/L (12-78); BILIRUBIN,DIRECT 0.1 MG/DL (0.0-0.2); BILIRUBIN,TOTAL 0.4 MG/DL (0.2-1.0); BLOOD UREA NITROGEN 12 MG/DL (7-18); CALCIUM LEVEL 9.1 MG/DL (8.5-10.1); CARBON DIOXIDE LEVEL 23 MEQ/L (21-32); CHLORIDE LEVEL 107 MEQ/L (98-107); CREATININE FOR GFR 0.62 MG/DL (0.55-1.30); ETHYL ALCOHOL (ETHANOL) 0.013 % (0.000-0.010); GLOMERULAR FILTRATION RATE > 60.0 (>60); GLUCOSE, FASTING 86 MG/DL (70-100); POTASSIUM SERUM 3.9 MEQ/L (3.5-5.1); SALICYLATE LEVEL < 1.7 MG/DL (5.0-30.0); SODIUM LEVEL 138 MEQ/L (136-145)
--- NOTE | 2019-02-28 13:26 | REP ---
Portable chest: Single view. History: Cough. Comparison study: Comparison CT study January 08, 2019. Findings: EKG monitoring electrodes overlie the chest. Lungs are well inflated and clear. Pleural angles are sharp. Heart size is normal. Pulmonary vasculature is not increased. No significant bony abnormality is seen. Impression: No active disease. Electronically Signed by Alfred Randhawa MD 02/28/2019 01:18 P
[2019-02-28 13:44] LABS: AMPHETAMINES LEVEL URINE NEGATIVE (NEGATIVE); BARBITURATES URINE NEGATIVE (NEGATIVE); BENZODIAZEPINES URINE NEGATIVE (NEGATIVE); CANNABINOIDS URINE NEGATIVE (NEGATIVE); COCAINE METABOLITE URINE NEGATIVE (NEGATIVE); METHADONE URINE NEGATIVE (NEGATIVE); OPIATES URINE NEGATIVE (NEGATIVE); PHENCYCLIDINE URINE NEGATIVE (NEGATIVE)
[2019-02-28] MEDS ORDERED: ARIP1TAB4 PO (14:39)
[2019-02-28] MEDS ORDERED: TRAZ10TA PO (14:39)
[2019-02-28] MEDS ORDERED: HYDR-3363 PO (14:39)
[2019-02-28] MEDS ORDERED: PRAZ2CAP PO (14:39)
[2019-02-28] MEDS ORDERED: FLUO20CA8 PO (14:39)
[2019-02-28] MEDS ORDERED: traZODone 50 MG TAB PO PRN (17:45)
[2019-02-28] MEDS ORDERED: MAALOX 30 ML SUSP *UDC PO PRN (17:45)
[2019-02-28] MEDS ORDERED: MOM 30ML SUSPENSION UDC PO PRN (17:45)
[2019-02-28] MEDS ORDERED: LORazepam 2 MG TAB PO PRN (17:45)
--- NOTE | 2019-02-28 19:50 | ECGEPIP ---
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
[2019-02-28] MEDS ORDERED: NICOTINE 21MG/24HR 1 EA TRANSDERMAL TD PRN (20:15)
[2019-02-28] MEDS: ACETAMINOPHEN TAB 650MG DOSE (2X325MG) PO PRN (20:49)
[2019-03-01] MEDS: ARIPiprazole 2 MG TAB PO SCH ×3 (00:39→21:16)
[2019-03-01] MEDS: PRAZOSIN 1 MG CAP PO SCH ×2 (00:40→21:18)
[2019-03-01 00:57] VITALS: BP 120/74
[2019-03-01 00:58] VITALS: BP 120/74
[2019-03-01 06:34] VITALS: BP 120/71
[2019-03-01] MEDS: FLUoxetine 20 MG CAP PO SCH (09:05)
[2019-03-01] MEDS: VITAMIN D 1,000 INTERNATIONAL UNITS TABLET PO SCH (09:05)
--- NOTE | 2019-03-01 11:29 | HPEPDOC ---
General Date of Admission February 28, 2019 at 17:40 Date of Service: March 01, 2019 Attending Physician: ERIC SIDDIQUI MD Chief Complaint The patient is a 23-year-old female admitted with a reason for visit of Unspecified Depressive Do. 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 Patient complains of sore throat this morning during assessment. Feels sore throat may be from trauma during suicide attempt. Otherwise, denies chills, chest pain, shortness of breath, nausea, abdominal pain or any other malaise Home Medications Scheduled Aripiprazole (Aripiprazole) 2 Mg Tablet, 2 MG PO BID, (Reported) Cholecalciferol (Vitamin D3) (Vitamin D3) 1,000 Unit Tab, 1,000 UNIT PO DAILY, (Reported) Fluoxetine Hcl (Fluoxetine HCl) 20 Mg Capsule, 60 MG PO DAILY, (Reported) Prazosin Hcl (Prazosin HCl) 2 Mg Capsule, 4 MG PO QHS, (Reported) Scheduled PRN Hydroxyzine HCl (Hydroxyzine HCl) 25 Mg Tablet, 25 MG PO Q6H PRN for ANXIETY, (Reported) Trazodone HCl (Trazodone HCl) 100 Mg Tablet, 100 MG PO QHS PRN for INSOMNIA, (Reported) Allergies Coded Allergies: latex (Verified Allergy, Unknown, 02/20/19) Past Medical History Medical History Depression Anxiety PTSD Surgical History D&C 2014 Social History * Smoker: Denies Alcohol: occationally Drugs: denies A-FIB/CHADSVASC A-FIB History Current/History of A-Fib/PAF?: No Current PO Anticoag Therapy: No Review of Systems Constitutional: Denies: Chills, Fever, Malaise, Night Sweats, Weakness, Fatigue, Weight Loss, Lethargy, Other Eyes: Denies: Pain, Vision change, Conjunctivae inflammation, Eyelid inflammation, Redness, Other ENT: Reports: Sore Throat Skin: Denies: Rash, Lesions, Jaundice, Bruising, Itching, Dry, Breakdown, Nail Changes, Other Pulmonary: Denies: Dyspnea, Cough, Pleuritic Chest Pain, Other Symptoms Cardiovascular: Denies: Chest Pain, Palpitations, Orthopnea, Paroxysmal Noc. Dyspnea, Edema, Lt Headedness, Other Symptoms Gastrointestinal: Denies: Nausea, Vomiting, Abdominal Pain, Diarrhea, Constipation, Melena, Hematochezia, Other Symptoms Genitourinary: Denies: Dysuria, Frequency, Incontinence, Hematuria, Retention, Other Symptoms Hematologic: Denies: Bruising, Bleeding Excessively, Petecchia, Purpura, Enlarged Lymph Nodes, Other Hematologic Endocrine: Denies: Polydipsia, Polyphagia, Polyuria, Heat Intolerance, Cold Intolerance, Other Endocrine Sx Musculoskeletal: Denies: Neck Pain, Back Pain, Shoulder Pain, Arm Pain, Hand Pain, Leg Pain, Foot Pain, Joint Pain, Muscle Pain, Spasms, Other Symptoms Neurological: Denies: Weakness, Numbness, Incoordination, Change in speech, Confusion, Seizures, Other Symptoms Psych: Denies: Mood Normal, Anxiety, Depression, Memory Issues, Thoughts of Self Harm, Anger, Thoughts of Harming Other, Other Psych Physical Examination General Exam: Positive: Alert, Cooperative, No Acute Distress Eye Exam: Positive: PERRLA, Conjunctiva & lids normal, EOMI ENT Exam: Positive: Atraumatic, Pharynx Normal (mild posterior oropharynx erythema) Neck Exam: Positive: Supple; Negative: JVD, thyromegaly Chest Exam: Positive: Clear to auscultation, Normal air movement; Negative: Rales Heart Exam: Positive: Rate Normal Abdomen Exam: Positive: Normal bowel sounds, Soft; Negative: Tenderness Extremity Exam: Negative: Clubbing, Cyanosis, Edema Skin Exam: Positive: Nl turgor and temperature; Negative: Rash, Breakdown Neuro Exam: Positive: Normal Gait, Normal Speech, Strength at 5/5 X4 ext Psych Exam: Positive: Mental status NL, Mood NL, Oriented x 3 Vital Signs Vital Signs Date Time Temp Pulse Resp B/P (MAP) Pulse Ox O2 Delivery O2 Flow Rate FiO2 03/01/19 06:34 97.5 68 14 120/71 (87) 03/01/19 00:58 97 02/28/19 17:30 Room Air Laboratory Data Labs 24H Laboratory Tests 2 02/28/19 12:21: Nucleated Red Blood Cells % (auto) 0.0, Anion Gap 8, Glomerular Filtration Rate > 60.0, Calcium Level 9.1, Aspartate Amino Transf (AST/SGOT) 19, Alanine Aminotransferase (ALT/SGPT) 27, Alkaline Phosphatase 79, Total Bilirubin 0.4, Direct Bilirubin 0.1, Total Protein 7.0, Albumin 3.9, Albumin/Globulin Ratio 1.26, Thyroid Stimulating Hormone (TSH) 1.850, Salicylates Level < 1.7L, Urine Amphetamines Screen NEGATIVE, Urine Benzodiazepines Screen NEGATIVE, Urine Op iates Screen NEGATIVE, Urine Methadone Screen NEGATIVE, Acetaminophen Level < 2.0L, Urine Barbiturates Screen NEGATIVE, Urine Phencyclidine Screen NEGATIVE, Urine Cocaine Metabolite Screen NEGATIVE, Urine Cannabinoids Screen NEGATIVE, Ethyl Alcohol Level 0.013H CBC/BMP Laboratory Tests 02/28/19 12:21 Red Blood Count 4.23, Mean Corpuscular Volume 89.8, Mean Corpuscular Hemoglobin 31.4, Mean Corpuscular Hemoglobin Concent 35.0, Red Cell Distribution Width 11.5 Assessment/Plan Sore throat -Post suicide attempt -Throat lozenges -Swab to exclude strep infection Suicide attempt -Management by primary team PTSD -Management by primary team DVT prophylaxis -Patient is frequently ambulatory Plan / VTE VTE Prophylaxis Ordered?: No VTE Exclusion Mechanical Proph: Low Risk for VTE GWENDOLYN SINGH March 01, 2019 11:29
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
[2019-03-01] MEDS: CEPACOL LOZENGE PO PRN (17:43)
[2019-03-01 18:01] VITALS: BP 102/51
[2019-03-01] MEDS: traZODone 100 MG TAB PO PRN (21:17)
[2019-03-02 06:32] VITALS: BP 103/53
[2019-03-02] MEDS: FLUoxetine 20 MG CAP PO SCH (08:48)
[2019-03-02] MEDS: ARIPiprazole 2 MG TAB PO SCH ×2 (08:48→20:29)
[2019-03-02] MEDS: VITAMIN D 1,000 INTERNATIONAL UNITS TABLET PO SCH (08:48)
[2019-03-02] MEDS: ACETAMINOPHEN TAB 650MG DOSE (2X325MG) PO PRN (08:48)
[2019-03-02 08:49] VITALS: BP 103/53
[2019-03-02] MEDS: CEPACOL LOZENGE PO PRN (09:25)
--- NOTE | 2019-03-02 13:22 | IPNPDOC ---
Subjective Date Seen The patient was seen on 03/02/19. 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 Events since last encounter Yesterday, patient complained of sore throat for which she was swabbed. Strep was negative. Today it's improved with Cepacol lozenges.She denie chills, fever, chest pain SOB Objective Physical Examination General Exam: Positive: Alert, Cooperative, No Acute Distress Eye Exam: Positive: PERRLA, Conjunctiva & lids normal, EOMI ENT Exam: Positive: Atraumatic, Pharynx Normal (mild posterior oropharynx erythema); Negative: Pharyngeal Edema Neck Exam: Positive: Supple; Negative: JVD, thyromegaly Chest Exam: Positive: Clear to auscultation, Normal air movement; Negative: Rales Heart Exam: Positive: Rate Normal Abdomen Exam: Positive: Normal bowel sounds, Soft; Negative: Tenderness Extremity Exam: Negative: Clubbing, Cyanosis, Edema Skin Exam: Positive: Nl turgor and temperature; Negative: Rash, Breakdown Neuro Exam: Positive: Normal Gait, Normal Speech, Strength at 5/5 X4 ext Psych Exam: Positive: Mental status NL, Mood NL, Oriented x 3 Assessment /Plan Assessment Sore throat -Post suicide attempt -continue throat lozenges -strep swab negative Suicide attempt -Management by primary team PTSD -Management by primary team DVT prophylaxis -Patient is frequently ambulatory Plan/VTE VTE Prophylaxis Ordered?: No VTE Exclusion Mechanical Proph: Low Risk for VTE VS, I&O, 24H, Fishbone Vital Signs/I&O Vital Signs Date Time Temp Pulse Resp B/P (MAP) Pulse Ox O2 Delivery O2 Flow Rate FiO2 03/02/19 08:49 92 103/53 03/02/19 06:32 98.3 14 03/01/19 00:58 97 02/28/19 17:30 Room Air Laboratory Data Microbiology Microbiology 03/01/19 Group A Streptococcus Screen (RENETTA) - Final, Resulted 03/01/19 Group A Streptococcus Screen (RENETTA), Resulted Pending GWENDOLYN SINGH March 02, 2019 13:22
[2019-03-02 17:54] VITALS: BP 108/54
[2019-03-02] MEDS: PRAZOSIN 1 MG CAP PO SCH (20:29)
[2019-03-02] MEDS: traZODone 100 MG TAB PO PRN (20:29)
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
[2019-03-03 05:10] VITALS: BP 108/54
[2019-03-03 06:45] VITALS: BP 118/59
[2019-03-03] MEDS: FLUoxetine 20 MG CAP PO SCH (09:35)
[2019-03-03] MEDS: VITAMIN D 1,000 INTERNATIONAL UNITS TABLET PO SCH (09:35)
[2019-03-03] MEDS: ARIPiprazole 2 MG TAB PO SCH ×2 (09:36→20:55)
[2019-03-03] MEDS: CEPACOL LOZENGE PO PRN (09:36)
[2019-03-03 18:16] VITALS: BP 105/52
[2019-03-03] MEDS: traZODone 100 MG TAB PO PRN (20:55)
[2019-03-03] MEDS: PRAZOSIN 1 MG CAP PO SCH (20:55)
[2019-03-03] MEDS: ACETAMINOPHEN TAB 650MG DOSE (2X325MG) PO PRN (22:14)
[2019-03-03 22:21] VITALS: BP 105/52
[2019-03-04 06:36] VITALS: BP 100/51
--- NOTE | 2019-03-04 09:19 | MHIPN ---
DATE: 03/03/2019 CHIEF COMPLAINT: Says feels better. SUBJECTIVE: Seen for followup, in the presence of staff, says feels much better and that she is less anxious, less depressed. Says is looking forward to going home soon. MENTAL STATUS EXAM: Neat and cooperative. No agitation. No psychomotor retardation. Affect is reactive, fairly broad. Denies any thoughts of harming herself or anyone else. No evidence of any psychosis. Cognition is grossly intact. Judgment improved. Insight fair. ASSESSMENT: Major depressive disorder, recurrent. Post-traumatic stress disorder. PLAN: Continue current care and observations. She suggests that the prazosin is not entirely effectively for nightmares. I do not think a change ought to be made at this point, and that may need to be considered as an outpatient. I would encourage her to participate in activities on the unit. No medication changes at this point. Should progress continue, is to be discharged soon. Vital Signs: Blood pressure 118/59, pulse 65, temperature 98.4.
[2019-03-04] MEDS: VITAMIN D 1,000 INTERNATIONAL UNITS TABLET PO SCH (09:22)
[2019-03-04] MEDS: FLUoxetine 20 MG CAP PO SCH (09:22)
[2019-03-04] MEDS: ARIPiprazole 2 MG TAB PO SCH ×2 (09:22→20:24)
--- NOTE | 2019-03-04 16:03 | REP ---
Clinical: Abdominal pain. Technique: Single supine view of the abdomen and pelvis. Findings: Bowel gas pattern is nonspecific. No organomegaly. No abnormal calcifications. Skeletal structures intact. Impression: Normal nonspecific abdominal radiograph. Electronically Signed by Stanley Hugo MD 03/04/2019 03:55 P
--- NOTE | 2019-03-04 16:53 | IPNPDOC ---
Subjective Date Seen The patient was seen on 03/04/19. Subjective Chief Complaint/HPI Admitted on account of suicide attempt Events since last encounter Reconsulted for complaints of abdominal pain. Patient denies chills or fever. Abdominal pain is to RUQ, associated with nausea, worse with inspiration Objective Physical Examination General Exam: Positive: Alert, Cooperative, No Acute Distress Eye Exam: Positive: PERRLA, Conjunctiva & lids normal, EOMI ENT Exam: Positive: Atraumatic, Pharynx Normal (mild posterior oropharynx erythema); Negative: Pharyngeal Edema Neck Exam: Positive: Supple; Negative: JVD, thyromegaly Chest Exam: Positive: Clear to auscultation, Normal air movement; Negative: Rales Heart Exam: Positive: Rate Normal Abdomen Exam: Positive: Normal bowel sounds, Soft, Tenderness Extremity Exam: Negative: Clubbing, Cyanosis, Edema Skin Exam: Positive: Nl turgor and temperature; Negative: Rash, Breakdown Neuro Exam: Positive: Normal Gait, Normal Speech, Strength at 5/5 X4 ext Psych Exam: Positive: Mental status NL, Mood NL, Oriented x 3 Assessment /Plan Assessment Problems (1) Abdominal pain Problem Text: -abdominal x-ray negative -U/S abdomen to further evaluate for cause of pain Plan/VTE VTE Prophylaxis Ordered?: No VTE Exclusion Mechanical Proph: Low Risk for VTE VS, I&O, 24H, Fishbone Vital Signs/I&O Vital Signs Date Time Temp Pulse Resp B/P (MAP) Pulse Ox O2 Delivery O2 Flow Rate FiO2 03/04/19 06:36 63 100/51 03/04/19 06:36 99.8 14 03/01/19 00:58 97 02/28/19 17:30 Room Air Laboratory Data Microbiology Microbiology 03/01/19 Group A Streptococcus Screen (RENETTA) - Final, Complete 03/01/19 Group A Streptococcus Screen (RENETTA) - Final, Complete Streptococcus Group C GWENDOLYN SINGH FAMILY SERVICES ASSISTANT Mar 04, 2019 16:53
[2019-03-04] MEDS: ACETAMINOPHEN TAB 650MG DOSE (2X325MG) PO PRN (17:33)
[2019-03-04 17:49] LABS: AMYLASE 52 U/L (25-115); LIPASE 133 U/L (73-393)
[2019-03-04 18:03] VITALS: BP 114/59
[2019-03-04] MEDS: traZODone 100 MG TAB PO PRN (20:24)
[2019-03-04] MEDS: PRAZOSIN 1 MG CAP PO SCH (20:24)
[2019-03-04] MEDS: hydrOXYzine 25 MG TAB PO PRN (20:24)
[2019-03-05 06:58] VITALS: BP 113/59
[2019-03-05 07:09] LABS: MEAN CORPUSCULAR VOLUME 91.5 fl (80.0-96.0); PLATELET COUNT, AUTOMATED 217 10^3/uL (150-450); RED BLOOD COUNT 4.37 10^6/uL (4.00-5.40); WHITE BLOOD COUNT 5.3 10^3/uL (4.0-10.0)
[2019-03-05 07:35] LABS: ALBUMIN 3.4 GM/DL (3.2-5.2); ALT/SGPT 23 U/L (12-78); BILIRUBIN,TOTAL 0.3 MG/DL (0.2-1.0); BLOOD UREA NITROGEN 12 MG/DL (7-18); CALCIUM LEVEL 8.3 MG/DL (8.5-10.1); CARBON DIOXIDE LEVEL 27 MEQ/L (21-32); CHLORIDE LEVEL 108 MEQ/L (98-107); CREATININE FOR GFR 0.69 MG/DL (0.55-1.30); GLOMERULAR FILTRATION RATE > 60.0 (>60); GLUCOSE, FASTING 86 MG/DL (70-100); POTASSIUM SERUM 4.1 MEQ/L (3.5-5.1); SODIUM LEVEL 140 MEQ/L (136-145)
--- NOTE | 2019-03-05 09:07 | MHIPN ---
DATE: 03/04/2019 CHIEF COMPLAINT: Says feels better. SUBJECTIVE: I seen for followup. Indicates feels better, less anxious and less depressed. MENTAL STATUS EXAMINATION: Neat and cooperative. There is no agitation. Affect is broader than it was yesterday. She is coherent. Denies any suicidal thoughts or intents. No homicidal ideas or intents. No current evidence of any psychosis. Cognition is grossly intact. Judgment is improved. Insight is fair. ASSESSMENT: 1. Major depressive disorder, recurrent. 2. Posttraumatic stress disorder (PTSD). She is less depressed, more confident, less anxious. PLAN: Continue current care and encourage participation in activities in the unit. We discussed a safety plan as well. She is to see her treatment team tomorrow and further recommendations will be made. VITAL SIGNS: Blood pressure 100/51, pulse 63, temperature 99.8.
[2019-03-05] MEDS: VITAMIN D 1,000 INTERNATIONAL UNITS TABLET PO SCH (09:31)
[2019-03-05] MEDS: ARIPiprazole 2 MG TAB PO SCH ×2 (09:31→21:48)
[2019-03-05] MEDS: FLUoxetine 20 MG CAP PO SCH (09:31)
[2019-03-05] MEDS: hydrOXYzine 25 MG TAB PO PRN (17:25)
[2019-03-05] MEDS: ACETAMINOPHEN TAB 650MG DOSE (2X325MG) PO PRN (17:25)
[2019-03-05 18:19] VITALS: BP 118/56
--- NOTE | 2019-03-05 20:10 | MHIPNPDOC ---
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 she didn't overdose because she didn't have any pills but tried to hang herself. The rope broke and her was home, he came to help her, picked her up from the floor and she was brought to the ED. As per ED report: "Pt presented to ED today on a 9.41 after found pt attempting suicide by hanging. Pt also had a superficial laceration on her leg that she admits to doing this morning before attempting to hang herself. 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 Pt reports that she attempted suicide today because she ran out of her medication and went without it for 4 days. Pt is prescribed Abil jessica, Trazadone, Fluoxetine, Hydroxyzine, Prazosin. With the 4 four day weekend, she forgot that she would not be able to get her meds refilled and ended up going 4 days without any. During time of interview pt denies SI/HI, AH/VH. States she was able to take her meds today (after the suicide attempt) and feels like herself again. Pt is dx with depression, anxiety, and PTSD. Pt was been in the [employer] and deployed to [facility] where she did not elaborate on events but stated it was "bad." Pt ended up taking an intentional overdose and was then hospitalized in [place] for about 3 days. Last admission was in Nov 2018 for a suicide attempt/depression (she was also off her meds when this admission happened too). Pt reports sleeping well and having a good appetite. Pt is seen @ [facility] every week and is being established at [facility] and has an appt March 07 with a therapist. Spoke with pt's separately who stated that the pt was doing very well on her meds before forgetting to refill them before the holiday weekend. Pt's feels that because she is so busy with school, doing homework, and working in the miliatry, she just forgot to refill them on time causing her to become suicidal. Pt's also noted him and his were "bickering" this morning and thought maybe that contributed to her attempting suicide since she is off her med". VITAL SIGNS: See below. NEW TEST RESULTS: See below CURRENT MEDICATIONS: See below. MENTAL STATUS EXAMINATION: General Appearance: well groomed, appears stated age, appropriate hygiene and grooming Build: average Demeanor: average Eye Contact: average Activity: average Behavior: cooperative, slightly irritable Speech: clear, spontaneous, normal volume, reg/rate,rhythm,volume Mood: less depressed, anxious, irritable Mood Irritable Affect: constricted, angry, irritable, anxious/depressed Thought Process: logical/linear, depressed Thought Content (Delusions): denies SI, HI, Thought Content (Other): none reported Thought Content (Aggressive): none reported Perception (Hallucinations): none reported Perception (Other): none reported Cognition (Impairment of): none reported Cognition(Intelligence Est.): average Oriented: Awake, Alert, Oriented times three Insight: fair Judgment: Fair Psychosis: Denies Diagnoses 1. Major Depressive disorder, recurrent, severe 2. PTSD 3. Borderline Personality disorder ASSESSMENT: The patient's KAROLINA have recommended for her to go skilled nursing but she says she doesn't want to go. After a long explanation of why it is necesary for her to go, she says she will go but just after she finishes her semester in school. The patient's is opposing to that plan too but this aligner typewriter told her that I feel she needs it. Apparently her doesn't agree either. Her KAROLINA has said if she doesn't want to go, she will spend the entire time in the barracks, from her so that they can keep an eye on her. she minimizes her symptoms and she seems to fulfill criteria for Borderline Personality Disorder. MANAGEMENT PLAN: Will continue with the same treatment plan TIME SPENT: 30 minutes. Vital Signs Vital Signs Date Time Temp Pulse Resp B/P (MAP) Pulse Ox O2 Delivery O2 Flow Rate FiO2 03/05/19 18:19 98.4 84 18 118/56 (76) 03/01/19 00:58 97 02/28/19 17:30 Room Air Laboratory Data 24H Labs Laboratory Tests 2 03/05/19 06:46: Nucleated Red Blood Cells % (auto) 0.0, Anion Gap 5L, Glomerular Filtration Rate > 60.0, Blood Urea Nitrogen 12, Creatinine 0.69, Sodium Level 140, Potassium Level 4.1, Chloride Level 108H, Carbon Dioxide Level 27, Calcium Level 8.3L, Aspartate Amino Transf (AST/SGOT) 14, Alanine Aminotransferase (ALT/SGPT) 23, Alkaline Phosphatase 86, Total Bilirubin 0.3, Total Protein 7.0, Albumin 3.4, Albumin/Globulin Ratio 0.94L CBC/BMP Laboratory Tests 03/05/19 06:46 Red Blood Count 4.37, Mean Corpuscular Volume 91.5, Mean Corpuscular Hemoglobin 32.0, Mean Corpuscular Hemoglobin Concent 35.0, Red Cell Distribution Width 11.7, Calcium Level 8.3 L, Aspartate Amino Transf (AST/SGOT) 14, Alanine Aminotransferase (ALT/SGPT) 23, Alkaline Phosphatase 86, Total Bilirubin 0.3, Total Protein 7.0, Albumin 3.4 Current Medications Current Medications Acetaminophen (Tylenol Tab) 650 mg Q6HP PRN PO HEADACHE or DISCOMFORT Last administered on 03/05/19 17:25; Start 02/28/19 at 17:45 Al Hydrox/Mg Hydrox/Simethicone (Mylanta) 30 ml Q4HP PRN PO HEARTBURN/INDIGESTION; Start 02/28/19 at 17:45 Aripiprazole (AbiLIFY) 2 mg BID PO Last administered on 03/05/19 09:31; Start 02/28/19 at 21:00 Cetylpyridinium Chloride (Cepacol) 1 bindu Q3HP PRN PO SORE THROAT Last administered on 03/03/19at 09:36; Start 03/01/19 at 11:30 Fluoxetine HCl (PROzac) 60 mg DAILY PO Last administered on 03/05/19 09:31; Start 03/01/19 at 09:00 Home Med (Med Rec Complete!) ASDIRECTED XX ; Start 02/28/19 at 14:45; Stop 02/28/19 at 15:20; Status DC Hydroxyzine HCl (Atarax) 25 mg Q6H PRN PO ANXIETY Last administered on 03/05/19 17:25; Start 02/28/19 at 20:15 Lorazepam (Ativan) 2 mg ASDIRECTED PRN PO SEE PROTOCOL; Start 02/28/19 at 17:45; Status Cancel Magnesium Hydroxide (Milk Of Magnesia) 30 ml DAILYPRN PRN PO CONSTIPATION; Start 02/28/19 at 17:45 Nicotine (Nicoderm Cq 21mg) 1 patch DAILYPRN PRN TD NICOTINE WITHDRAWAL; Start 02/28/19 at 20:15 Prazosin HCl (Minipress) 4 mg QHS PO Last administered on 03/04/19at 20:24; Start 02/28/19 at 21:00 Trazodone HCl (Desyrel) 50 mg QHSP PRN PO INSOMNIA; Start 02/28/19 at 17:45; Stop 02/28/19 at 20:04; Status DC Trazodone HCl (Desyrel) 100 mg QHS PRN PO INSOMNIA Last administered on 03/04/19at 20:24; Start 02/28/19 at 20:15 Vitamin D (Vitamin D) 1,000 units DAILY PO Last administered on 03/05/19at 09:31; Start 03/01/19 at 09:00 Allergies Coded Allergies: latex (Verified Allergy, Unknown, 02/20/19) TRACEY EMMANUEL MD Mar 05, 2019 20:10
[2019-03-05] MEDS: traZODone 100 MG TAB PO PRN (21:48)
[2019-03-05] MEDS: PRAZOSIN 1 MG CAP PO SCH (21:48)
--- NOTE | 2019-03-06 06:26 | REP ---
Clinical: Right upper quadrant pain. Technique: Real time montgomery scale ultrasound examination using curved array transducer. Findings: Liver and pancreas are normal in contour, size, echogenicity without focal hepatic or pancreatic lesion identified. The gallbladder is normal and without gallstones, wall thickening, or pericholecystic fluid. No biliary ductal dilatation is appreciated and the common bile duct measures 2.8 mm diameter. The right kidney is normal in reniform shape without hydronephrosis and measures 11.9 x 4.9 x 4.7 cm. Impression: Normal complete abdominal ultrasound. Electronically Signed by Stanley Hugo MD 03/06/2019 06:17 A
[2019-03-06 06:33] VITALS: BP 100/57
[2019-03-06] MEDS: FLUoxetine 20 MG CAP PO SCH (09:16)
[2019-03-06] MEDS: VITAMIN D 1,000 INTERNATIONAL UNITS TABLET PO SCH (09:16)
[2019-03-06] MEDS: ARIPiprazole 2 MG TAB PO SCH ×2 (09:16→20:34)
--- NOTE | 2019-03-06 16:01 | MHIPNPDOC ---
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 she didn't overdose because she didn't have any pills but tried to hang herself. The rope broke and her was home, he came to help her, picked her up from the floor and she was brought to the ED. As per ED report: "Pt presented to ED today on a 9.41 after found pt attempting suicide by hanging. Pt also had a superficial laceration on her leg that she admits to doing this morning before attempting to hang herself. 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 Pt reports that she attempted suicide today because she ran out of her medication and went without it for 4 days. Pt is prescribed Abilify, Trazadone, Fluoxetine, Hydroxyzine, Prazosin. With the 4 four day weekend, she forgot that she would not be able to get her meds refilled and ended up going 4 days without any. During time of interview pt denies SI/HI, AH/VH. States she was able to take her meds today (after the suicide attempt) and feels like herself again. Pt is dx with depression, anxiety, and PTSD. Pt was been [facility] the [employer] and deployed to [facility] where she did not elaborate on events but stated it was "bad." Pt ended up taking an intentional overdose and was then hospitalized in [place] for about 3 days. Last admission was in Nov 2018 for a suicide attempt/depression (she was also off her meds when this admission happened too). Pt reports sleeping well and having a good appetite. Pt is seen @ [facility] every week and is being established at [facility] and has an appt March 07 with a therapist. Spoke with pt's separately who stated that the pt was doing very well on her meds before forgetting to refill them before the holiday weekend. Pt's feels that because she is so busy with school, doing homework, and working in the miliatry, she just forgot to refill them on time causing her to become suicidal. Pt's also noted him and his were "bickering" this morning and thought maybe that contributed to her attempting suicide since she is off her med". VITAL SIGNS: See below. NEW TEST RESULTS: See below CURRENT MEDICATIONS: See below. MENTAL STATUS EXAMINATION: General Appearance: well groomed, appears stated age, appropriate hygiene and grooming Build: average Demeanor: average Eye Contact: average Activity: average Behavior: cooperative, calm Speech: clear, spontaneous, normal volume, reg/rate,rhythm,volume Mood: less depressed, less anxious Mood Irritable Affect: constricted, anxious/depressed Thought Process: logical/linear, less depressed Thought Content (Delusions): denies SI, HI, Thought Content (Other): none reported Thought Content (Aggressive): none reported Perception (Hallucinations): none reported Perception (Other): none reported Cognition (Impairment of): none reported Cognition(Intelligence Est.): average Oriented: Awake, Alert, Oriented times three Insight: fair Judgment: Fair Psychosis: Denies Diagnoses 1. Major Depressive disorder, recurrent, severe 2. PTSD 3. Borderline Personality disorder ASSESSMENT: The patient reported that she spoke with her about the plan that the [employer] has for her, that if she doesn't accept going for custodial she will have to go to the [facility] where she will be monitored and will have to stay away from her . She says that he was very supportive and both have agreed on her going to the [facility] for 6 weeks, that will give her time to finish school. After that, she will go to long term care administrator. She requests to have other medication for sleep because Trazodone doesn't seem to work. this sports writer has started her on Remeron 30 mgs and increased Prazosin from 4 mgs to 50 mgs because she still complains of nightmares. Will start her on Gabapentin 200 mgs PO TID for anxiety since Atarax doesn't work. MANAGEMENT PLAN: Prozac 60 mgs Po daily Gabapentin 200 mgs Po daily, discontinue Atarax Remeron 30 mgs Po QHS for sleep/insomnia, discontinue Trazodone Prazosin 5 mgs Po QHS, discontinue previous dose of 4 mgs PO QHS TIME SPENT: 30 minutes. Vital Signs Vital Signs Date Time Temp Pulse Resp B/P (MAP) Pulse Ox O2 Delivery O2 Flow Rate FiO2 03/06/19 06:33 97.9 84 12 100/57 (71) 03/01/19 00:58 97 02/28/19 17:30 Room Air Current Medications Current Medications Acetaminophen (Tylenol Tab) 650 mg Q6HP PRN PO HEADACHE or DISCOMFORT Last administered on 03/05/19 17:25; Start 02/28/19 at 17:45 Al Hydrox/Mg Hydrox/Simethicone (Mylanta) 30 ml Q4HP PRN PO HEARTBU RN/INDIGESTION; Start 02/28/19 at 17:45 Aripiprazole (AbiLIFY) 2 mg BID PO Last administered on 03/06/19 09:16; Start 02/28/19 at 21:00 Cetylpyridinium Chloride (Cepacol) 1 bindu Q3HP PRN PO SORE THROAT Last administered on 03/03/19at 09:36; Start 03/01/19 at 11:30 Fluoxetine HCl (PROzac) 60 mg DAILY PO Last administered on 03/06/19 09:16; Start 03/01/19 at 09:00 Home Med (Med Rec Complete!) ASDIRECTED XX ; Start 02/28/19 at 14:45; Stop 02/28/19 at 15:20; Status DC Hydroxyzine HCl (Atarax) 25 mg Q6H PRN PO ANXIETY Last administered on 03/05/19 17:25; Start 02/28/19 at 20:15; Stop 03/06/19 at 15:41; Status DC Lorazepam (Ativan) 2 mg ASDIRECTED PRN PO SEE PROTOCOL; Start 02/28/19 at 17:45; Status Cancel Magnesium Hydroxide (Milk Of Magnesia) 30 ml DAILYPRN PRN PO CONSTIPATION; Start 02/28/19 at 17:45 Mirtazapine (Remeron) 30 mg QHS PO ; Start 03/06/19 at 21:00; Status UNV Nicotine (Nicoderm Cq 21mg) 1 patch DAILYPRN PRN TD NICOTINE WITHDRAWAL; Start 02/28/19 at 20:15 Prazosin HCl (Minipress) 4 mg QHS PO Last administered on 03/05/19at 21:48; Start 02/28/19 at 21:00; Stop 03/06/19 at 15:36; Status DC Prazosin HCl (Minipress) 5 mg QHS PO ; Start 03/06/19 at 21:00; Status UNV Trazodone HCl (Desyrel) 50 mg QHSP PRN PO INSOMNIA; Start 02/28/19 at 17:45; Stop 02/28/19 at 20:04; Status DC Trazodone HCl (Desyrel) 100 mg QHS PRN PO INSOMNIA Last administered on 03/05/19at 21:48; Start 02/28/19 at 20:15; Stop 03/06/19 at 15:37; Status DC Vitamin D (Vitamin D) 1,000 units DAILY PO Last administered on 03/06/19at 09:16; Start 03/01/19 at 09:00 Allergies Coded Allergies: latex (Verified Allergy, Unknown, 02/20/19) TRACEY EMMANUEL MD Mar 06, 2019 16:01
[2019-03-06] MEDS: GABAPENTIN 100 MG CAP PO SCH ×2 (16:08→20:35)
[2019-03-06 18:37] VITALS: BP 99/58
[2019-03-06] MEDS ORDERED: KETOROLAC 60 MG/2 ML VIAL (J1885) IM ONE (19:00)
[2019-03-06] MEDS: MIRTAZAPINE 15 MG TAB PO SCH (20:34)
[2019-03-06] MEDS: PRAZOSIN 1 MG CAP PO SCH (20:35)
[2019-03-07 06:34] VITALS: BP 109/56
[2019-03-07] MEDS: VITAMIN D 1,000 INTERNATIONAL UNITS TABLET PO SCH (09:35)
[2019-03-07] MEDS: FLUoxetine 20 MG CAP PO SCH (09:35)
[2019-03-07] MEDS: ARIPiprazole 2 MG TAB PO SCH ×2 (09:35→20:54)
[2019-03-07] MEDS: GABAPENTIN 100 MG CAP PO SCH ×3 (09:36→20:53)
[2019-03-07 18:00] VITALS: BP 108/59
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
[2019-03-07] MEDS: PRAZOSIN 1 MG CAP PO SCH (20:53)
[2019-03-07] MEDS: MIRTAZAPINE 15 MG TAB PO SCH (20:54)
[2019-03-08 06:42] VITALS: BP 111/69
[2019-03-08] MEDS: VITAMIN D 1,000 INTERNATIONAL UNITS TABLET PO SCH (09:38)
[2019-03-08] MEDS: FLUoxetine 20 MG CAP PO SCH (09:38)
[2019-03-08] MEDS: ACETAMINOPHEN TAB 650MG DOSE (2X325MG) PO PRN (09:38)
[2019-03-08] MEDS: ARIPiprazole 2 MG TAB PO SCH ×2 (09:38→21:16)
[2019-03-08] MEDS: GABAPENTIN 100 MG CAP PO SCH ×3 (09:38→21:16)
[2019-03-08] MEDS ORDERED: GABA-1171 PO (10:42)
[2019-03-08] MEDS ORDERED: MINI1CAP PO (10:42)
[2019-03-08] MEDS ORDERED: FLUO20CA8 PO (10:42)
[2019-03-08] MEDS ORDERED: NICO21PAT TD (10:42)
[2019-03-08] MEDS ORDERED: REME15TA PO (10:42)
[2019-03-08] MEDS ORDERED: HYDR-3363 PO (10:42)
[2019-03-08] MEDS ORDERED: ARIP1TAB4 PO (10:42)
[2019-03-08 18:00] VITALS: BP 110/60
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
[2019-03-08] MEDS: PRAZOSIN 1 MG CAP PO SCH (21:15)
[2019-03-08] MEDS: MIRTAZAPINE 15 MG TAB PO SCH (21:16)
[2019-03-09 06:45] VITALS: BP 100/58
[2019-03-09] MEDS: ARIPiprazole 2 MG TAB PO SCH ×2 (08:29→20:15)
[2019-03-09] MEDS: FLUoxetine 20 MG CAP PO SCH (08:29)
[2019-03-09] MEDS: VITAMIN D 1,000 INTERNATIONAL UNITS TABLET PO SCH (08:29)
[2019-03-09] MEDS: GABAPENTIN 100 MG CAP PO SCH ×3 (08:29→20:14)
[2019-03-09 18:10] VITALS: BP 105/53
[2019-03-09] MEDS: MIRTAZAPINE 15 MG TAB PO SCH (20:14)
[2019-03-09] MEDS: PRAZOSIN 1 MG CAP PO SCH (20:15)
--- NOTE | 2019-03-09 21:20 | MHIPNPDOC ---
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 she didn't overdose because she didn't have any pills but tried to hang herself. The rope broke and her was home, he came to help her, picked her up from the floor and she was brought to the ED. As per ED report: "Pt presented to ED today on a 9.41 after found pt attempting suicide by hanging. Pt also had a superficial laceration on her leg that she admits to doing this morning before attempting to hang herself. 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 Pt reports that she attempted suicide today because she ran out of her medication and went without it for 4 days. Pt is prescribed Abilify, Trazadone, Fluoxetine, Hydroxyzine, Prazosin. With the 4 four day weekend, she forgot that she would not be able to get her meds refilled and ended up going 4 days without any. During time of interview pt denies SI/HI, AH/VH. States she was able to take her meds today (after the suicide attempt) and feels like herself again. Pt is dx with depression, anxiety, and PTSD. Pt was been in the [employer] and deployed to [facility] where she did not elaborate on events but stated it was "bad." Pt ended up taking an intentional overdose and was then hospitalized in [place] for about 3 days. Last admission was in Nov 2018 for a suicide attempt/depression (she was also off her meds when this admission happened too). Pt reports sleeping well and having a good appetite. Pt is seen @ [facility] every week and is being established at [facility] and has an appt March 07 with a therapist. Spoke with pt's separately who stated that the pt was doing very well on her meds before forgetting to refill them before the holiday weekend. Pt's feels that because she is so busy with school, doing homework, and working in the miliatry, she just forgot to refill them on time causing her to become suicidal. Pt's also noted him and his were "bickering" this morning and thought maybe that contributed to her attempting suicide since she is off her med". VITAL SIGNS: See below. NEW TEST RESULTS: See below CURRENT MEDICATIONS: See below. MENTAL STATUS EXAMINATION: General Appearance: well groomed, appears stated age, appropriate hygiene and grooming Build: average Demeanor: average Eye Contact: average Activity: average Behavior: cooperative, anxious Speech: clear, spontaneous, normal volume, reg/rate,rhythm,volume Mood: less depressed, less anxious Mood Irritable Affect: constricted, anxious Thought Process: logical/linear, less depressed Thought Content (Delusions): denies SI, HI, Thought Content (Other): none reported Thought Content (Aggressive): none reported Perception (Hallucinations): none reported Perception (Other): none reported Cognition (Impairment of): none reported Cognition(Intelligence Est.): average Oriented: Awake, Alert, Oriented times three Insight: fair Judgment: Fair Psychosis: Denies Diagnoses 1. Major Depressive disorder, recurrent, severe 2. PTSD 3. Borderline Personality disorder ASSESSMENT:The patient continues to be reluctant to go to [place] for [facility] treatment. She thinks the [facility] is not doing it for her, that they are doing it to protect themselves in case something happens to her. The patient keeps minimizing her symptoms and the [employer] says that she won't go to chcf treatment because she doesn't agree going but, interestingly, she can stay here, not in one of their facilities because [facility] has told her [facility] they can't force her to go to termite control service representative but, they say, if we think she should stay longer, we should keep her for a longer period of time at [facility]. She can be [facility] at [facility] and if they says they will take her and watch her constantly, she will be discharged back to the [facility] on Tuesday. MANAGEMENT PLAN: Prozac 60 mgs Po daily Gabapentin 200 mgs Po daily, discontinue Atarax Remeron 30 mgs Po QHS for sleep/insomnia, discontinue Trazodone Prazosin 5 mgs Po QHS, discontinue previous dose of 4 mgs PO QHS TIME SPENT: 30 minutes. Vital Signs Vital Signs Date Time Temp Pulse Resp B/P (MAP) Pulse Ox O2 Delivery O2 Flow Rate FiO2 03/09/19 20:15 119/72 03/09/19 18:10 99.4 79 16 Current Medications Current Medications Acetaminophen (Tylenol Tab) 650 mg Q6HP PRN PO HEADACHE or DISCOMFORT Last administered on 03/08/19 09:38; Start 02/28/19 at 17:45 Al Hydrox/Mg Hydrox/Simethicone (Mylanta) 30 ml Q4HP PRN PO HEARTBURN/INDIGESTION; Start 02/28/19 at 17:45 Aripiprazole (AbiLIFY) 2 mg BID PO Last administered on 03/09/19 20:15; Start 02/28/19 at 21:00 Cetylpyridinium Chloride (Cepacol) 1 bindu Q3HP PRN PO SORE THROAT Last administered on 03/03/19 09:36; Start 03/01/19 at 11:30 Fluoxetine HCl (PROzac) 60 mg DAILY PO Last administered on 03/09/19 08:29; Start 03/01/19 at 09:00 Gabapentin (Neurontin) 200 mg TID PO Last administered on 03/09/19 20:14; Start 03/06/19 at 16:00 Home Med (Med Rec Complete!) ASDIRECTED XX ; Start 02/28/19 at 14:45; Stop 02/28/19 at 15:20; Status DC Hydroxyzine HCl (Atarax) 25 mg Q6H PRN PO ANXIETY Last administered on 03/05/19 17:25; Start 02/28/19 at 20:15; Stop 03/06/19 at 15:41; Status DC Lorazepam (Ativan) 2 mg ASDIRECTED PRN PO SEE PROTOCOL; Start 02/28/19 at 17:45; Status Cancel Magnesium Hydroxide (Milk Of Magnesia) 30 ml DAILYPRN PRN PO CONSTIPATION; Start 02/28/19 at 17:45 Mirtazapine (Remeron) 30 mg QHS PO Last administered on 03/09/19 20:14; Start 03/06/19 at 21:00 Nicotine (Nicoderm Cq 21mg) 1 patch DAILYPRN PRN TD NICOTINE WITHDRAWAL; Start 02/28/19 at 20:15 Prazosin HCl (Minipress) 4 mg QHS PO Last administered on 03/05/19 21:48; Start 02/28/19 at 21:00; Stop 03/06/19 at 15:36; Status DC Prazosin HCl (Minipress) 5 mg QHS PO Last administered on 03/09/19at 20:15; S tart 03/06/19 at 21:00 Trazodone HCl (Desyrel) 50 mg QHSP PRN PO INSOMNIA; Start 02/28/19 at 17:45; Stop 02/28/19 at 20:04; Status DC Trazodone HCl (Desyrel) 100 mg QHS PRN PO INSOMNIA Last administered on 03/05/19at 21:48; Start 02/28/19 at 20:15; Stop 03/06/19 at 15:37; Status DC Vitamin D (Vitamin D) 1,000 units DAILY PO Last administered on 03/09/19at 08:29; Start 03/01/19 at 09:00 Allergies Coded Allergies: latex (Verified Allergy, Unknown, 02/20/19) TRACEY EMMANUEL MD Mar 09, 2019 21:20
[2019-03-10 06:35] VITALS: BP 113/59
[2019-03-10] MEDS: VITAMIN D 1,000 INTERNATIONAL UNITS TABLET PO SCH (09:23)
[2019-03-10] MEDS: ARIPiprazole 2 MG TAB PO SCH ×2 (09:23→20:49)
[2019-03-10] MEDS: GABAPENTIN 100 MG CAP PO SCH ×3 (09:23→20:47)
[2019-03-10] MEDS: FLUoxetine 20 MG CAP PO SCH (09:23)
[2019-03-10 18:10] VITALS: BP 127/62
[2019-03-10] MEDS: MIRTAZAPINE 15 MG TAB PO SCH (20:45)
[2019-03-10] MEDS: PRAZOSIN 1 MG CAP PO SCH (20:47)
[2019-03-11 06:23] VITALS: BP 108/55
[2019-03-11] MEDS: GABAPENTIN 100 MG CAP PO SCH ×3 (08:27→20:43)
[2019-03-11] MEDS: ARIPiprazole 2 MG TAB PO SCH ×2 (08:27→20:42)
[2019-03-11] MEDS: VITAMIN D 1,000 INTERNATIONAL UNITS TABLET PO SCH (08:27)
[2019-03-11] MEDS: FLUoxetine 20 MG CAP PO SCH (08:27)
[2019-03-11 18:11] VITALS: BP 120/64
[2019-03-11] MEDS: MIRTAZAPINE 15 MG TAB PO SCH (20:43)
[2019-03-11 20:44] VITALS: BP 135/65
[2019-03-11] MEDS: PRAZOSIN 1 MG CAP PO SCH (20:44)
[2019-03-12 06:36] VITALS: BP 110/59
[2019-03-12] MEDS: VITAMIN D 1,000 INTERNATIONAL UNITS TABLET PO SCH (08:06)
[2019-03-12] MEDS: GABAPENTIN 100 MG CAP PO SCH (08:07)
[2019-03-12] MEDS: FLUoxetine 20 MG CAP PO SCH (08:07)
[2019-03-12] MEDS: ARIPiprazole 2 MG TAB PO SCH (08:07)
== END 2019-03-12 13:25 | disposition home or self-care (01) | DRG 885 ==
LOC: M ED 12:12 → EDBD 12:12 → M ED INP 17:40 → M PSY 23:46
PROVIDERS: ADMIT Psychiatry & Neurology Psychiatry; ATTEND Psychiatry & Neurology Child & Adolescent Psychiatry
DX: F33.2 Major depressive disorder, recurrent severe without psychotic features (principal); F60.3 Borderline personality disorder; F43.10 Post-traumatic stress disorder, unspecified; Z79.899 Other long term (current) drug therapy; Z91.040 Latex allergy status

== ENCOUNTER 2019-04-27 09:18 | Emergency (ER) | payer OTHER ==
[~2019-04-27] VITALS: Ht 157.5 cm; Wt 68.2 kg
[~2019-04-27 09:18] MED LIST changes: +FLUO20CA8 PO; +GABA-1171 PO; +NICO21PAT TD; +PRAZ2CAP PO; +REME15TA PO
[2019-04-27] MEDS ORDERED: NS 1,000 ML IV ONE ×2 (10:00→11:30)
[2019-04-27 10:18] LABS: BASO % 0.3 % (0.0-1.0); EOS # 0.1 10^3/uL (0.0-0.50); EOS % 1.4 % (0.0-3.0); HEMATOCRIT 36.1 % (36.0-47.0); HEMOGLOBIN 12.8 g/dl (12.0-15.5); LYMPH # 1.9 10^3/uL (1.5-6.5); LYMPH % 33.7 % (24.0-44.0); MEAN CORPUSCULAR HEMOGLOBIN 31.4 pg (27.0-33.0); MEAN CORPUSCULAR HGB CONC 35.5 g/dl (32.0-36.5); MEAN CORPUSCULAR VOLUME 88.5 fl (80.0-96.0); MONO # 0.6 10^3/uL (0.0-0.8); MONO % 10.8 % (0.0-5.0); NEUTROPHILS % 53.3 % (36.0-66.0); PLATELET COUNT, AUTOMATED 242 10^3/uL (150-450); RED BLOOD COUNT 4.08 10^6/uL (4.00-5.40); WHITE BLOOD COUNT 5.7 10^3/uL (4.0-10.0)
[2019-04-27] MEDS ORDERED: PRENTAB53 PO (10:35)
[2019-04-27 10:45] LABS: BLOOD UREA NITROGEN 6 MG/DL (7-18); CALCIUM LEVEL 8.4 MG/DL (8.5-10.1); CARBON DIOXIDE LEVEL 24 MEQ/L (21-32); CHLORIDE LEVEL 109 MEQ/L (98-107); CREATININE FOR GFR 0.54 MG/DL (0.55-1.30); GLOMERULAR FILTRATION RATE > 60.0 (>60); GLUCOSE, FASTING 81 MG/DL (70-100); POTASSIUM SERUM 4.1 MEQ/L (3.5-5.1); SODIUM LEVEL 139 MEQ/L (136-145)
[2019-04-27 11:21] LABS: HCG, SERUM QUANTITATIVE 23306 MIU/ML
[2019-04-27 14:00] VITALS: BP 113/62
[2019-04-27 14:42] LABS: CHLAMYDIA DNA AMPLIFICATION NEGATIVE (NEGATIVE); GC DNA AMPLIFICATION NEGATIVE (NEGATIVE)
--- NOTE | 2019-04-27 14:51 | REP ---
First trimester obstetric ultrasound for abdominal cramping: The study is performed with transabdominal, endovaginal and Doppler ultrasound assessment: There is an intrauterine gestational sac with a pole. The pole crown-rump length is 0.7 cm corresponding to 6 weeks 4 days gestational age. The JUAN is 12/17/2019. By LMP the gestational age is 10 weeks 3 days/JUAN 11/20/2019. heart rate is 118 beats per minute. There is no subchorionic hematoma. There is a normal size yolk sac measuring 2 mm in diameter. There is a right ovarian hemorrhagic cyst, likely a corpus luteum, measuring 1.4 cm in diameter. There is vascular flow in both ovaries. The Doppler resistive index of the parenchymal arteries of the right ovary is 0.54 and left ovary 0.50. Impression: Viable 0-fdsh-8-day intrauterine gestation. No subchorionic hematoma. Right ovarian hemorrhagic cyst measuring 1.4 cm diameter. Vascular flow in both ovaries. No free fluid in the pelvis. Electronically Signed by Oliverio Acharya MD 04/27/2019 02:43 P
--- NOTE | 2019-04-28 09:33 | ECGEPIP ---
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
== END 2019-04-27 14:06 | disposition home or self-care (01) ==
LOC: M ED 09:18 → EDBD 09:18 → M ED 14:06
DX: O99.89 Other specified diseases and conditions complicating pregnancy, childbirth and the puerperium (principal); R55 Syncope and collapse; E86.0 Dehydration; F33.9 Major depressive disorder, recurrent, unspecified; F41.9 Anxiety disorder, unspecified; Z91.040 Latex allergy status; Z3A.01 Less than 8 weeks gestation of pregnancy

== ENCOUNTER 2019-05-12 22:29 | Emergency (ER) | payer OTHER ==
[~2019-05-12] VITALS: Ht 157.5 cm; Wt 52.3 kg
[~2019-05-12 22:29] MED LIST changes: +PRENTAB53 PO
[2019-05-12] MEDS ORDERED: ZOFR4TAB16 PO (22:34)
[2019-05-12 22:56] LABS: BASO % 0.3 % (0.0-1.0); EOS # 0.1 10^3/uL (0.0-0.50); EOS % 0.9 % (0.0-3.0); HEMATOCRIT 39.4 % (36.0-47.0); HEMOGLOBIN 13.8 g/dl (12.0-15.5); LYMPH # 2.6 10^3/uL (1.5-6.5); LYMPH % 29.2 % (24.0-44.0); MEAN CORPUSCULAR HEMOGLOBIN 31.3 pg (27.0-33.0); MEAN CORPUSCULAR VOLUME 89.3 fl (80.0-96.0); MONO # 1.1 10^3/uL (0.0-0.8); MONO % 11.9 % (0.0-5.0); NEUTROPHILS # 5.1 10^3/uL (1.8-7.7); PLATELET COUNT, AUTOMATED 279 10^3/uL (150-450); RED BLOOD COUNT 4.41 10^6/uL (4.00-5.40); WHITE BLOOD COUNT 8.9 10^3/uL (4.0-10.0)
--- NOTE | 2019-05-12 23:50 | REPVR ---
EXAM: US First Trimester, Transabdominal EXAM DATE/TIME: 05/12/2019 11:36 PM CLINICAL HISTORY: 23 years old, female; Lmp or gestational age (in weeks): 8w 4d; Other: Vaginal bleeding and cramping; ; Additional info: 9wks preg, vag bleeding, clot, HX stillborn TECHNIQUE: Imaging protocol: Real-time transabdominal obstetrical ultrasound of the maternal pelvis and a first trimester , less than 14 weeks 0 days, with image documentation. COMPARISON: Abdomen, limited US 03/05/2019 8:04 AM FINDINGS: GESTATION: Gestation: Single gestational sac within the uterine fundus. Single pole demonstrated within the gestational sac. Yolk sac identified measuring 5.5 mm. Heart rate: heart rate 171 beats per minute. Placenta: Unremarkable. No subchorionic bleed. Amniotic fluid: Amniotic and chorionic fluid are normal for gestational age. BIOMETRY: Estimated gestational age: Gestational age based on crown-rump length is 8 weeks 6 days. Gestational age based on LMP of 03/12/2019 8 weeks 5 days. [place]-Rump length: [place]-rump length is 2.2 cm. MATERNAL: Uterus: Unremarkable. Cervix: Unremarkable. Right adnexa: Unremarkable. Left adnexa: Unremarkable. Intraperitoneal: No intraperitoneal free fluid. IMPRESSION: Unremarkable first trimester gestation at 8 weeks 6 days. Followup evaluation at 19-20 weeks for detailed anatomic survey can be performed if clinically desired Electronically signed by: Cristhian Ellis On 05/12/2019 23:50:19 PM
[2019-05-13 00:12] LABS: BLOOD UREA NITROGEN 10 MG/DL (7-18); CALCIUM LEVEL 9.7 MG/DL (8.5-10.1); CARBON DIOXIDE LEVEL 28 MEQ/L (21-32); CHLORIDE LEVEL 106 MEQ/L (98-107); CREATININE FOR GFR 0.68 MG/DL (0.55-1.30); GLOMERULAR FILTRATION RATE > 60.0 (>60); GLUCOSE, FASTING 90 MG/DL (70-100); HCG, SERUM QUANTITATIVE 76004 MIU/ML; SODIUM LEVEL 139 MEQ/L (136-145)
[2019-05-13] MEDS ORDERED: FLAG500T PO (00:24)
[2019-05-13] MEDS ORDERED: metroNIDAZOLE (FLAGYL) 500 MG TAB PO ONE (00:30)
[2019-05-13 00:31] VITALS: BP 131/68
== END 2019-05-13 00:36 | disposition home or self-care (01) ==
LOC: M ED 22:29
DX: O20.9 Hemorrhage in early pregnancy, unspecified (principal); O23.591 Infection of other part of genital tract in pregnancy, first trimester; Z3A.08 8 weeks gestation of pregnancy; Z91.040 Latex allergy status

== ENCOUNTER 2019-05-23 09:37 | Emergency (ER) | payer OTHER ==
[~2019-05-23] VITALS: Ht 157.5 cm; Wt 70.9 kg
[~2019-05-23 09:37] MED LIST changes: +FLAG500T PO; +ZOFR4TAB16 PO
[2019-05-23] MEDS ORDERED: NS 1,000 ML IV ONE (10:15)
[2019-05-23] MEDS ORDERED: ONDANSETRON 4MG/2ML VIAL (J2405) IV ONE (10:15)
[2019-05-23 10:37] LABS: HEMATOCRIT 39.7 % (36.0-47.0); HEMOGLOBIN 13.9 g/dl (12.0-15.5); MEAN CORPUSCULAR VOLUME 88.4 fl (80.0-96.0); PLATELET COUNT, AUTOMATED 276 10^3/uL (150-450); RED BLOOD COUNT 4.49 10^6/uL (4.00-5.40)
[2019-05-23 11:13] LABS: BLOOD UREA NITROGEN 7 MG/DL (7-18); CALCIUM LEVEL 9.4 MG/DL (8.5-10.1); CARBON DIOXIDE LEVEL 27 MEQ/L (21-32); CHLORIDE LEVEL 105 MEQ/L (98-107); CREATININE FOR GFR 0.54 MG/DL (0.55-1.30); GLOMERULAR FILTRATION RATE > 60.0 (>60); GLUCOSE, FASTING 79 MG/DL (70-100); POTASSIUM SERUM 3.9 MEQ/L (3.5-5.1); SODIUM LEVEL 137 MEQ/L (136-145)
[2019-05-23 12:09] VITALS: BP 118/67
[2019-05-23] MEDS ORDERED: DICL10TA PO (12:13)
== END 2019-05-23 12:22 | disposition home or self-care (01) ==
LOC: M ED 09:37
DX: O21.9 Vomiting of pregnancy, unspecified (principal); R11.0 Nausea; Z86.19 Personal history of other infectious and parasitic diseases; O99.341 Other mental disorders complicating pregnancy, first trimester; Z91.5 Personal history of self-harm; Z87.59 Personal history of other complications of pregnancy, childbirth and the puerperium; Z79.899 Other long term (current) drug therapy; Z91.040 Latex allergy status
CPT/HCPCS: 36415; 80048; 85027; 96374; 99284; J2405

== ENCOUNTER 2019-06-11 06:58 | Emergency (ER) | payer OTHER ==
[~2019-06-11] VITALS: Ht 157.5 cm; Wt 71.8 kg
[~2019-06-11 06:58] MED LIST changes: +DICL10TA PO
[2019-06-11] MEDS ORDERED: unasom (07:05)
[2019-06-11] MEDS ORDERED: vitamin b6 (07:05)
[2019-06-11] MEDS ORDERED: diphenhydrAMINE 50 MG CAP As Ordered ONE (07:40)
[2019-06-11 08:16] LABS: BLOOD UREA NITROGEN 5 MG/DL (7-18); CALCIUM LEVEL 8.2 MG/DL (8.5-10.1); CARBON DIOXIDE LEVEL 22 MEQ/L (21-32); CHLORIDE LEVEL 107 MEQ/L (98-107); CREATININE FOR GFR 0.45 MG/DL (0.55-1.30); GLOMERULAR FILTRATION RATE > 60.0 (>60); GLUCOSE, FASTING 85 MG/DL (70-100); POTASSIUM SERUM 3.7 MEQ/L (3.5-5.1); SODIUM LEVEL 141 MEQ/L (136-145)
[2019-06-11 08:37] VITALS: BP 129/76
[2019-06-11] MEDS ORDERED: DIME50TA35 PO (08:42)
== END 2019-06-11 08:58 | disposition home or self-care (01) ==
LOC: M ED 06:58
DX: O21.0 Mild hyperemesis gravidarum (principal); Z3A.13 13 weeks gestation of pregnancy; Z91.040 Latex allergy status

== ENCOUNTER 2019-10-04 11:57 | Outpatient (CLI) | payer OTHER ==
[~2019-10-04] VITALS: Ht 157.5 cm; Wt 75.8 kg
[~2019-10-04 11:57] MED LIST changes: +DIME50TA35 PO; +FLUO20CA20 PO; -FLUO20CA8 PO; +unasom; +vitamin b6
[2019-10-04 12:10] VITALS: BP 116/60
--- NOTE | 2019-10-04 14:05 | HPE ---
DATE OF ADMISSION: 10/04/2019 23-year-old 2, para 1, abortio 0, last menstrual period 02/13/2019, estimated date of confinement (EDC) 12/17/2027 at 29 and 4 weeks of gestation with a history of questionable spontaneous rupture of membranes and decreased movement. RISK FACTORS: She has significant depression, had an IUFD at 34 weeks in 2014. Pap smear is LGSIL, and she has a bipolar personality. 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 PAST HISTORY: She had an IUFD at 34 weeks in 2014. She had no care because she had no insurance. She came in with vaginal bleeding and had a spontaneous vaginal delivery of an infant that . She has no details of weight or sex but had a D C and it is suspected that she had an abruption. LABORATORIES: B+, HIV negative, hep negative, RPR negative, rubella immune. Varicella immune. Pap is LGSIL. Urine is negative. Gonorrhea and chlamydia negative. 1-hour glucose was 124. She takes nothing but vitamins. Blood pressure is 116/60, respirations are 18, pulse is 85. Temperature is 98.4. Urine is 10/20, pH is 5, trace protein, trace blood. PHYSICAL EXAMINATION: No distress. She has multiple tattoos. Symphysis fundus height is 30, vertex presenting. Category one strip. Sterile speculum examination after discussion of the procedure. Nitrazine was negative, BV was negative, yeast was negative. No vaginal bleeding or loss. Cervix is closed, tight and posterior. She has a category one strip and not rupture of membranes. We discussed kick chart, premature rupture of membranes, bleeding, contractions and when to call provider. She is started on biweekly monitoring profile at 32 weeks gestation. In summary, we have a 29 and 4 with negative ruptured membranes, category one strip. Discharged improved.
== END 2019-10-04 13:05 | disposition home or self-care (01) ==
LOC: M LDO 11:57
PROVIDERS: ATTEND Obstetrics & Gynecology
DX: O36.8130 Decreased fetal movements, third trimester, not applicable or unspecified (principal); Z3A.29 29 weeks gestation of pregnancy
CPT/HCPCS: G0378; G0463

== ENCOUNTER → 2019-10-23 | Outpatient (CLI) | payer OTHER ==
[~2019-10-23] MED LIST changes: -TRAZ10TA PO; +TRAZ1TAB12 PO
--- NOTE | 2019-10-23 13:11 | REP ---
Obstetric ultrasound for biophysical profile and oligohydramnios evaluation, stat request: The there is a single intrauterine gestation in a cephalic presentation. The heart rate is 122 beats per minute. The placenta is posterior. There is no placenta previa. The amniotic fluid volume subjectively is normal. The amniotic fluid index is 13.8 (8.6 - 24.2). biophysical profile: Breathing 2.0 Movement 2.0 Tone 2.0 AFV 2.0 Total 8.0 / 8.0 Umbilical cord Doppler assessment: S/D ratio 2.52 (2.30-3.30) Resistive Index 0.60 (0.59-0.75 Diastolic Velocity 15 41 (>10 cm/sec) Electronically Signed by Oliverio Acharya MD 10/23/2019 01:03 P
== END ==
LOC: M RAD 12:02
PROVIDERS: ATTEND Registered Nurse Maternal Newborn
DX: Z34.83 Encounter for supervision of other normal pregnancy, third trimester (principal); Z3A.32 32 weeks gestation of pregnancy

== ENCOUNTER → 2020-04-22 | Outpatient (CLI) | payer OTHER, SELFPAY ==
[~2020-04-22] MED LIST changes: -FLUO20CA19 PO; +FLUO20CA22 PO; +FLUOCRE TOP
== END ==
LOC: M ONCR 13:46
PROVIDERS: ATTEND Radiology Radiation Oncology
DX: C86.6 Primary cutaneous CD30-positive T-cell proliferations (principal)

== ENCOUNTER → 2020-04-22 | Outpatient (CLI) | payer OTHER ==
--- NOTE | 2020-04-22 15:41 | REP ---
Clinical: Proliferative T-cell disease. Comparison: 02/28/2019 . Technique: PA and lateral. Findings: The mediastinum and cardiac silhouette are normal. The lung hines are clear and without acute consolidation, effusion, or pneumothorax. The skeletal structures are intact and normal. Impression: 1. No acute cardiopulmonary process. Electronically Signed by Stanley Hugo MD 04/22/2020 03:32 P
[2020-04-22 15:49] LABS: HEMATOCRIT 38.1 % (36.0-47.0); HEMOGLOBIN 12.4 g/dl (12.0-15.5); MEAN CORPUSCULAR HEMOGLOBIN 27.3 pg (27.0-33.0); MEAN CORPUSCULAR HGB CONC 32.5 g/dl (32.0-36.5); MEAN CORPUSCULAR VOLUME 83.9 fl (80.0-96.0); PLATELET COUNT, AUTOMATED 296 10^3/uL (150-450); RED BLOOD COUNT 4.54 10^6/uL (4.00-5.40); WHITE BLOOD COUNT 5.5 10^3/uL (4.0-10.0)
[2020-04-22 17:10] LABS: ERYTHROCYTE SEDIMENTATION RATE 11 mm/hr (0-20)
== END ==
LOC: M LAB 15:00
PROVIDERS: ATTEND General Practice
DX: C86.6 Primary cutaneous CD30-positive T-cell proliferations (principal)
CPT/HCPCS: 36415; 71046; 83615; 85027; 85652; G0463

== ENCOUNTER → 2020-11-19 | Outpatient (CLI) | payer OTHER ==
[~2020-11-19] MED LIST changes: +MIRT-62 PO; -REME15TA PO
--- NOTE | 2020-11-19 16:24 | RADONC ---
Radiation Oncology Hx/FUP Radiation Oncology Hx/FUP Date of Service: Nov 19, 2020 Pt Identifier Marline Skelton is a 25 year old female [employer] with an extensive family history of cancer as well as a personal 7 year history of papular rash on the extremities and trunk which comes and goes. 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 The history of spontaneously regressing multiphasic scattered eruptions supports this diagnosis. She was seen in our office on 04/22/20 complete lymph node exam was negative, a CXR was performed which was also negative for concerning mediastinal pathology. We discussed referral to Dr. Craft at [facility] (she specializes in cutaneous oncology with attention to lymphomas and lymphoproliferative disorders) unfortunately an appointment was never scheduled. 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 Noted that she has had outbreaks of scattered, mostly subcentimeter hyperpigmented papules on her arms, legs and trunk, sparing her face, palms and soles. These lesions come on initially as an eczematoid faint papular rash and progress to more discreet papules which evolve, sometimes umbilicated or ulcerated, and then regress and heal without scarring. The larger lesions can be painful and tender. She notes no bleeding from even the ulcerated ones. Since delivering her son she has noted wider spread/frequency of these eruptions which prompted her to seek care. She has a family history of cancer, including lymphoma (unknown type). She has never used any topical steroids. Her role in the was as a medic, she had no known carcinogenic exposure. She is in good health otherwise, except for PTSD, depression, and anxiety. She reports a history of multiple bouts of strep throat in adolescence. She denies hx of mononucleosis. She has a history of weight fluctuations, in the absence of disordered eating, though weight recently is stable. She has no fevers, or night sweats. Pathology: 03/06/20 Shave biopsy left forearm Atypical CD30 positive lymphoproliferative disorder consistent with type C lymphomatoid papulosis 04/22/20 CXR negative Interval History Marline reports her family is doing well. Son about to turn 1. She reports that she has continued lesions coming and going predominantly on her arms. She had one on her left wrist recently which was painful, larger than typical, umbilicated, regressed in about 1 week with fluocinonide topical. Finds the steroid cream moderately helpful, with use on lesions they heal in ~1 week, without they can take 2-3 weeks at times to resolve. She currently has minimal active lesions and no sites of pain. She has no concerns for adenopathy on self exam. She has experienced several pre-syncopal episodes currently being evaluated by neurology and cardiology for this with no immediate cause determined. Appetite is good, weight stable. No fevers, chills, or night sweats. Current Therapy Fluocinonide 0.05% cream PRN to bothersome lesions Stage N/A Social History: Non smoker Does not drink Allergies / Meds Allergies: Coded Allergies: latex (Verified Allergy, Unknown, 10/04/19) Home Meds Active Scripts Fluocinonide/Emollient Base (Fluocinonide-E 0.05% Cream) 15 Gm Cream..g., 1 APLCT TOP BID PRN for RASH, #60 GRAM 3 Refills Prov:LALY ANGUIANO MD 04/22/20 dimenhyDRINATE (dimenhyDRINATE) 50 Mg Tablet, 50 MG PO Q6HP, #30 TAB Prov:Pardeep Boswell M.D. 06/11/19 Reported Medications Vit,Calc76/Iron/Folic (Prenatabs Rx Tablet) 1 Each Tablet, 1 TAB PO DAILY for 30 Days, #30 TAB 04/27/19 Review of Systems Review of Systems Constitutional: Denies: Fever, Night Sweats, Fatigue, Weight Loss Eyes: Denies: Pain, Vision change HEENT: Denies: Head Aches Skin: Reports: Lesions Pulmonary: Denies: Dyspnea, Cough Cardiovascular: Reports: Lt Headedness; Denies: Chest Pain, Palpitations, Edema Gastrointestinal: Denies: Nausea, Vomiting Musculoskeletal: Denies: Neck pain, Back pain Neurological: Denies: Weakness, Numbness Psych: Reports: Mood Normal Physical Examination Vital Signs Ht 62" Wt 152 lbs BMI 27 T 97 P 88 RR 18 BP 108/65 O2 99% Pain 0 Fatigue 0 General Exam: Positive: Alert, Cooperative; Negative: No Acute Distress Eye Exam: Positive: PERRLA, EOMI ENT EXAM: Positive: Atraumatic, Mucous membr. moist/pink, Pharynx Normal Neck Exam: Positive: Supple Other Physical Findings Complete skin examination performed. On the BL forearms there are relatively few scattered red to re-brown papules, 2-3 mm on average at various stages of healing/umbilication and scarring. None appear ulcerated at this time. On the the left volar thumb base a larger pale scarred over macule ~ 1cm in size, wherein she stated the most severe of her recent lesions was located. There are no lesions discernible on the skin of the face, neck, torso, and legs. Complete lymph node exam completed with no lesions in the accessible node bearing areas of the groins, axillae, abdomen, supraclavicular fossae, necks, epitrochlear or popliteal fossae, or Waldeyers ring. Diagnostic and Laboratory Diagnostic Review Radiologic images, relevant labs and pathology reports were personally reviewed and discussed with Ms. Skelton. Assessment and Plan Impression Assessment Ms. Skelton is a 25 year old female [employer] with an extensive family history of cancer as well as a personal 7 year history of papular rash on the extremities and trunk which comes and goes. 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 The history of spontaneously regressing multiphasic scattered eruptions supports this diagnosis. She was seen in our office on 04/22/20 complete lymph node exam was negative, a CXR was performed which was also negative for concerning mediastinal pathology. We discussed referral to Dr. Craft at [facility] (she specializes in cutaneous oncology with attention to lymphomas and lymphoproliferative disorders) unfortunately an appointment was never scheduled. She is doing well from a lymphomatoid papulosis standpoint. The topical steroid has been somewhat helpful she will continue these as needed. She has no lesions on exam today concerning for more insidious pathology. Nor does she have any palpable adenopathy. I will again attempt to refer her to Dr. Craft at [facility] for her expert opinion. I explained that as things appear to be well compensated at the moment that I could see her again in 12 months time. As always this could be moved up if need be. Performance Status ECOG 0 Plan Continue fluocinonide PRN Re-referral to Dr. Craft @ [facility] for her expertise Follow up in 1 year Ms. Skelton was encouraged to call with questions or concerns in the interim period. Billing Statement Total time of [22] minutes was spent preparing for the visit [2], obtaining HPI [3], examining the patient [4], reviewing diagnostic tests [X], discussing management options [4], coordinating care [2], and writing this note [7]. LALY ANGUIANO MD Nov 19, 2020 16:23
== END ==
LOC: M ONCR 13:59
PROVIDERS: ATTEND Radiology Radiation Oncology
DX: C86.6 Primary cutaneous CD30-positive T-cell proliferations (principal)

== ENCOUNTER → 2020-12-05 | Outpatient (REF) | LOC: M LABSMTC 10:36 | PROVIDERS: ATTEND Pediatrics | DX: Z11.52 Encounter for screening for COVID-19 (principal) ==

== ENCOUNTER → 2021-01-05 | Outpatient (REF) | LOC: M LABSMTC 11:22 | PROVIDERS: ATTEND Pediatrics | DX: Z20.822 Contact with and (suspected) exposure to COVID-19 (principal) ==

== ENCOUNTER → 2021-03-10 | Outpatient (CLI) | payer OTHER | LOC: M WUC 15:19 | PROVIDERS: ATTEND Nurse Practitioner Adult Health | DX: N92.6 Irregular menstruation, unspecified (principal) ==

== ENCOUNTER → 2021-04-09 | Outpatient (REF) | payer OTHER ==
[2021-04-09 14:11] LABS: APPEARANCE, URINE CLEAR (CLEAR); BACTERIA, URINE AUTO NEGATIVE (NEGATIVE); BILIRUBIN, URINE AUTO NEGATIVE (NEGATIVE); BLOOD, URINE BLOOD 1+ (NEGATIVE); COLOR, URINE YELLOW (YELLOW); GLUCOSE, URINE (UA) AUTO NEGATIVE (NEGATIVE); KETONE, URINE AUTO NEGATIVE (NEGATIVE); LEUKOCYTE ESTERASE, URINE AUTO NEGATIVE (NEGATIVE); MUCUS, URINE SMALL (NEGATIVE); NITRITE, URINE AUTO NEGATIVE (NEGATIVE); PROTEIN, URINE AUTO NEGATIVE (NEGATIVE); RBC, URINE AUTO 3 /HPF (0-3); SPECIFIC GRAVITY URINE AUTO 1.024 (1.002-1.035); SQUAMOUS EPITHELIAL CELL UR AU 1 /HPF (0-6); UROBILINOGEN, URINE AUTO 0.2 mg/dL (0.0-2.0); WBC, URINE AUTO 1 /HPF (0-3)
[2021-04-09 14:16] LABS: BASO % 0.9 % (0.0-1.0); EOS # 0.1 10^3/uL (0.0-0.5); HEMATOCRIT 41.9 % (36.0-47.0); HEMOGLOBIN 13.8 g/dl (12.0-15.5); LYMPH # 1.9 10^3/uL (1.5-5.0); MEAN CORPUSCULAR HEMOGLOBIN 29.4 pg (27.0-33.0); MEAN CORPUSCULAR HGB CONC 32.9 g/dl (32.0-36.5); MEAN CORPUSCULAR VOLUME 89.3 fl (80.0-96.0); MONO # 0.4 10^3/uL (0.0-0.8); MONO % 8.5 % (2.0-8.0); NEUTROPHILS % 45.4 % (36.0-66.0); PLATELET COUNT, AUTOMATED 296 10^3/uL (150-450); RED BLOOD COUNT 4.69 10^6/uL (4.00-5.40); WHITE BLOOD COUNT 4.5 10^3/uL (4.0-10.0)
[2021-04-09 14:36] LABS: ERYTHROCYTE SEDIMENTATION RATE 4 mm/hr (0-20)
[2021-04-09 14:46] LABS: ALT/SGPT 24 U/L (12-78); BILIRUBIN,TOTAL 0.4 MG/DL (0.2-1.0); BLOOD UREA NITROGEN 11 MG/DL (7-18); CALCIUM LEVEL 8.6 MG/DL (8.5-10.1); CARBON DIOXIDE LEVEL 28 MEQ/L (21-32); CHLORIDE LEVEL 107 MEQ/L (98-107); CREATININE FOR GFR 0.58 MG/DL (0.55-1.30); GLOMERULAR FILTRATION RATE > 60.0 (>60); GLUCOSE, FASTING 79 MG/DL (70-100); HCG, SERUM QUANTITATIVE < 1.0 MIU/ML; POTASSIUM SERUM 4.5 MEQ/L (3.5-5.1); SODIUM LEVEL 140 MEQ/L (136-145); TOTAL PROTEIN 7.3 GM/DL (6.4-8.2); TOTAL PROTEIN,RANDOM URINE 14.4 MG/DL (0.0-12.0)
== END ==
LOC: M SFHCRHEU 08:34
PROVIDERS: ATTEND Internal Medicine Rheumatology
DX: R76.8 Other specified abnormal immunological findings in serum (principal)

== ENCOUNTER 2021-08-04 21:17 | Emergency (ER) | payer OTHER ==
[~2021-08-04] VITALS: Ht 157.5 cm; Wt 70.5 kg
--- OUTSIDE RECORDS SUMMARY | 2021-08-04 21:26 | CCD ---
Author Author [facility] Organization [facility] Address Unknown Phone Unavailable Care Team Providers Care Front Office Agent Name Role Phone NO, PCP Unavailable Unavailable Jeni Jean-Baptiste Unavailable Unavailable Jeni Jean-Baptiste Unavailable Unavailable Jeni Jean-Baptiste Unavailable Unavailable Jeni Jean-Baptiste Unavailable Unavailable Jeni Jean-Baptiste Unavailable Unavailable Jeni Jean-Baptiste Unavailable Unavailable Jeni Jean-Baptiste Unavailable Unavailable Jeni Jean-Baptiste Unavailable Unavailable Jeni Jean-Baptiste Unavailable Unavailable Jeni Jean-Baptiste Unavailable Unavailable Jeni Jean-Baptiste Unavailable Unavailable Jeni Jean-Baptiste Unavailable Unavailable Jeni Jean-Baptiste Unavailable Unavailable Jeni Jean-Baptiste Unavailable Unavailable Jeni Jean-Baptiste Unavailable Unavailable Jeni Jean-Baptiste Unavailable Unavailable Jeni Jean-Baptiste Unavailable Unavailable Jeni Jean-Baptiste Unavailable Unavailable Jeni Jean-Baptiste Unavailable Unavailable Jeni Jean-Baptiste Unavailable Unavailable Jeni Jean-Baptiste Unavailable Unavailable Jeni Jean-Baptiste Unavailable Unavailable AMERMARIOH, MIGUEL A MORENO Unavailable Unavailable AMERNATH, MIGUEL A MD Unavailable Unavailable AMERNATH, MIGUEL A MD Unavailable Unavailable AMERNATH, MIGUEL A MD Unavailable Unavailable AMERNATH, MIGUEL A MD Unavailable Unavailable AMERNATH, MIGUEL A MD Unavailable Unavailable AMERNATH, MIGUEL A MD Unavailable Unavailable AMERNATH, PETRAAPPA MD Unavailable Unavailable AMERNATH, MIGUEL A MD Unavailable Unavailable AMERNATH, MIGUEL A MD Unavailable Unavailable AMERNATH, MIGUEL A MD Unavailable Unavailable AMERNATH, MIGUEL A MD Unavailable Unavailable LETTIERE, A CARLOS EDUARDO PA Unavailable Unavailable LETTIERE, A CARLOS EDUARDO PA Unavailable Unavailable LETTIERE, A CARLOS EDUARDO PA Unavailable Unavailable LETTIERE, A CARLOS EDUARDO PA Unavailable Unavailable LETTIERE, A CARLOS EDUARDO PA Unavailable Unavailable LETTIERE, A CARLOS EDUARDO PA Unavailable Unavailable LETTIERE, A CARLOS EDUARDO PA Unavailable Unavailable LETTIERE, A CARLOS EDUARDO PA Unavailable Unavailable LETTIERE, A CARLOS EDUARDO PA Unavailable Unavailable LETTIERE, A CARLOS EDUARDO PA Unavailable Unavailable LETTIERE, A CARLOS EDUARDO PA Unavailable Unavailable LETTIERE, A CARLOS EDUARDO PA Unavailable Unavailable LETTIERE, A CARLOS EDUARDO PA Unavailable Unavailable LETTIERE, A CARLOS EDUARDO PA Unavailable Unavailable LETTIERE, A CARLOS EDUARDO PA Unavailable Unavailable LETTIERE, A CARLOS EDUARDO PA Unavailable Unavailable LETTIERE, A CARLOS EDUARDO PA Unavailable Unavailable LETTIERE, A CARLOS EDUARDO PA Unavailable Unavailable LETTIERE, A CARLOS EDUARDO PA Unavailable Unavailable LETTIERE, A CARLOS EDUARDO PA Unavailable Unavailable LETTIERE, A CARLOS EDUARDO PA Unavailable Unavailable LETTIERE, A CARLOS EDUARDO PA Unavailable Unavailable LETTIERE, A CARLOS EDUARDO PA Unavailable Unavailable LETTIERE, A CARLOS EDUARDO PA Unavailable Unavailable LETTIERE, A CARLOS EDUARDO PA Unavailable Unavailable LETTIERE, A CARLOS EDUARDO PA Unavailable Unavailable LETTIERE, A CARLOS EDUARDO PA Unavailable Unavailable LETTIERE, A CARLOS EDUARDO PA Unavailable Unavailable LETTIERE, A CARLOS EDUARDO PA Unavailable Unavailable LETTIERE, A CARLOS EDUARDO PA Unavailable Unavailable LETTIERE, A CARLOS EDUARDO PA Unavailable Unavailable Barraclough, M Jaja PA Unavailable Unavailable Barraclough, M Jaja PA Unavailable Unavailable Barraclough, M Jaja PA Unavailable Unavailable Barraclough, M Jaja PA Unavailable Unavailable Barraclough, M Jaja PA Unavailable Unavailable Barraclough, M Jaja PA Unavailable Unavailable Barraclough, M Jaja PA Unavailable Unavailable VIGIL, LENNY VANESSA ARCHERY EQUIPMENT REPAIRER Unavailable Unavailable VIGIL, LENNY VANESSA ARCHERY EQUIPMENT REPAIRER Unavailable Unavailable VIGIL, LENNY VANESSA ARCHERY EQUIPMENT REPAIRER Unavailable Unavailable VIGIL, LENNY VANESSA ARCHERY EQUIPMENT REPAIRER Unavailable Unavailable VIGIL, LENNY VANESSA ARCHERY EQUIPMENT REPAIRER Unavailable Unavailable VIGIL, LENNY VANESSA ARCHERY EQUIPMENT REPAIRER Unavailable Unavailable VIGIL, LENNY VANESSA ARCHERY EQUIPMENT REPAIRER Unavailable Unavailable VIGIL, LENNY VANESSA ARCHERY EQUIPMENT REPAIRER Unavailable Unavailable VIGIL, LENNY VANESSA ARCHERY EQUIPMENT REPAIRER Unavailable Unavailable VIGIL, LENNY VANESSA ARCHERY EQUIPMENT REPAIRER Unavailable Unavailable VIGIL, LENNY VANESSA ARCHERY EQUIPMENT REPAIRER Unavailable Unavailable VIGIL, LENNY VANESSA ARCHERY EQUIPMENT REPAIRER Unavailable Unavailable VIGIL, LENNY VANESSA ARCHERY EQUIPMENT REPAIRER Unavailable Unavailable VIGIL, LENNY VANESSA ARCHERY EQUIPMENT REPAIRER Unavailable Unavailable VIGIL, LENNY VANESSA ARCHERY EQUIPMENT REPAIRER Unavailable Unavailable VIGIL, LENNY VANESSA ARCHERY EQUIPMENT REPAIRER Unavailable Unavailable VIGIL, LENNY VANESSA ARCHERY EQUIPMENT REPAIRER Unavailable Unavailable VIGIL, LENNY VANESSA ARCHERY EQUIPMENT REPAIRER Unavailable Unavailable VIGIL, LENNY VANESSA ARCHERY EQUIPMENT REPAIRER Unavailable Unavailable VIGIL, LENNY VANESSA ARCHERY EQUIPMENT REPAIRER Unavailable Unavailable VIGIL, LENNY VANESSA ARCHERY EQUIPMENT REPAIRER Unavailable Unavailable VIGIL, LENNY VANESSA ARCHERY EQUIPMENT REPAIRER Unavailable Unavailable VIGIL, LENNY VANESSA ARCHERY EQUIPMENT REPAIRER Unavailable Unavailable Ji LEONARD MD Unavailable Unavailable Ji LEONARD MD Unavailable Unavailable Ji LEONARD MD Unavailable Unavailable Ji LEONARD MD Unavailable Unavailable Ji LEONARD MD Unavailable Unavailable Ji LEONARD MD Unavailable Unavailable Ji LEONARD MD Unavailable Unavailable Ji LEONARD MD Unavailable Unavailable Ji LEONARD MD Unavailable Unavailable Ji LEONARD MD Unavailable Unavailable Ji LEONARD MD Unavailable Unavailable Ji LEONARD MD Unavailable Unavailable Ji LEONARD MD Unavailable Unavailable Ji LEONARD MD Unavailable Unavailable Ji LEONARD MD Unavailable Unavailable Ji LEONARD MD Unavailable Unavailable Ji LEONARD MD Unavailable Unavailable Ji LEONARD MD Unavailable Unavailable Ji LEONARD MD Unavailable Unavailable Ji LEONARD MD Unavailable Unavailable Ji LEONARD MD Unavailable Unavailable Ji LEONARD MD Unavailable Unavailable Ji LEONARD MD Unavailable Unavailable Ji LEONARD MD Unavailable Unavailable Ji LEONARD MD Unavailable Unavailable Ji LEONARD MD Unavailable Unavailable Re-disclosure Warning The records that you are about to access may contain information from federally-assisted alcohol or drug abuse programs. If such information is present, then the following federally mandated warning applies: This information has been disclosed to you from records protected by federal confidentiality rules (42 CFR part 2). The federal rules prohibit you from making any further disclosure of this information unless further disclosure is expressly permitted by the written consent of the person to whom it pertains or as otherwise permitted by 42 CFR part 2. A general authorization for the release of medical or other information is NOT sufficient for this purpose. The Federal rules restrict any use of the information to criminally investigate or prosecute any alcohol or drug abuse patient.The records that you are about to access may contain highly sensitive health information, the redisclosure of which is protected by Article 27-F of the [facility] Public Health law. If you continue you may have access to information: Regarding HIV / AIDS; Provided by facilities licensed or operated by the [facility] Office of Mental Health; or Provided by the [facility] Office for People With Developmental Disabilities. If such information is present, then the following [facility] mandated warning applies: This information has been disclosed to you from confidential records which are protected by state law. State law prohibits you from making any further disclosure of this information without the specific written consent of the person to whom it pertains, or as otherwise permitted by law. Any unauthorized further disclosure in violation of state law may result in a fine or prison sentence or both. A general authorization for the release of medical or other information is NOT sufficient authorization for further disc losure. Encounters Encounter Providers Location Date Indications Data Source(s ) OutpatientOFFICE VISIT, NEW Attender: Melvi TOMLIN [facility] mary carmen 06/13/2021 11:00:00 AM EDT - 06/13/2021 11:00:00 AM EDT Less than 8 weeks gestation of pregnancyEncounter for oth general cnsl and advice on contraceptionOther sex counselingHuman immunodeficiency virus [HIV] counselingEncounter for test, result positive [facility] ([facility]) Less than 8 weeks gestation of Encounter for oth general cnsl and advic e on contraception Other sex counseling Human immunodeficiency virus [HIV] couns eling Encounter for test, result pos itive Outpatient [address] [facility] [address] 03/27/2021 12:00:00 AM EDT eCW1 ([facility]) Outpatient Attender: VANESSA VIGIL NP 021 09:06:00 AM EST - 12/08/2020 09:06:00 AM [facility] Outpatient Attender: Jaja TOMLIN [facility] 11/07/2020 08:30:00 AM EST [facility] ([facility] Outpatient Attender: CARLOS EDUARDO terrelly 10/21/2020 08:35:00 AM EST [facility] ([facility] Emergency Attender: MIGUEL A FLORES MDConsultant: PCP NO 08/27/2020 08:58:00 PM EST - 08/27/2020 11:20:00 PM EST [facility] pital Patient discharged. Outpatient Attender: KIRAN LEONARD MD 03:21:00 PM EDT - 07/02/2020 03:21:00 PM EDT [facility] Immunizations Vaccine Date Status Description Data Source(s) COVID-19 VACCINE Moderna 02/10/2021 12:00:00 AM EDT completed [facility] Vaccine Series Complete: YESThis Data wa s Submitted to [facility] [employer]. COVID-19 VACCINE Moderna 01/13/2021 12:00:00 AM EDT completed [facility] Vaccine Series Complete: NOThis Data was Submitted to [facility] [employer]. Medications Medication Brand Name Start Date Product Form Dose Route Admi nistrative Instructions Pharmacy Instructions Status Indications Reaction Description Data Source(s) Sprintec 28 Sprintec 28 05/09/2020 12:00:00 AM EDT ORAL completed [facility] ([facility]) Insurance Providers Payer name Policy type / Coverage type Policy ID Covered alliance party ID Covered alliance party's relationship to yi Policy Yi Plan Information [facility] [id number] [facility] [id number] E[facility] ACTIVE DUTY [id number] SELF PAY [facility] [id number] [facility] [id number] [facility] [id number] E[facility] HUMA[facility] - O/P [id number] 01 [id number] [facility] - O/P OO 01 OO [facility] [place] [id number] 01 [id number] [facility] [id number] 2 [id number] [facility] [id number] 2 [id number] [facility] EAST REG O [id number] S [id number] [facility] EAST REG O [id number] S [id number] HEA [id number] S [id number] HEA [id number] S [id number] SELF PAY O UNAVAILABLE [id number] S UNAVAILA BLE EAST HUMANA - O/P [id number] 18 [id number] EAST ACTIVE DUTY [id number] SP [id number] ACTIVE DUTY [id number] SP [id number] [facility] [id number] SP [id number] [facility]/ AD O [id number] S [id number] SELF PAY ONLY [id number] SP [id number] Problems, Conditions, and Diagnoses Code Display Name Description Problem Type Effective Dates Data Source(s) B0089 Other herpesviral infection Other herpesviral infectio n Diagnosis 12/08/2020 09:06:00 AM [facility] G73254 Encounter for removal of intrauterine co ntraceptive device Encounter for removal of intrauterine contraceptive device Diagnosis 1 09:06:00 AM [facility] [id number] Unspecified ovarian cyst, left side Unspecified ovarian cyst, left side Diagnosis 08/27/2020 08:58:00 PM [facility] N200 Calculus of kidney Calculus of kidney Diagnosis 0 08:58:00 PM [facility] R1032 Left lower quadrant pain Left lower quadrant pain Diag nosis 08/27/2020 08:58:00 PM [facility] [id number] Encounter for insertion of intrauterine contraceptive device Encounter for insertion of intrauterine contraceptive device Diagnosis 03:21:00 PM EDT [facility] Surgeries/Procedures Procedure Description Date Indications Data Source(s) CVR Wire Spooler.Svc. Other 06/13/2021 12:00:00 AM EDT - 2020 12:00:00 AM EDT [facility] ([facility]) CVR Med.Svc. Height/Weight 06/13/2021 12 :00:00 AM EDT - 06/13/2021 12:00:00 AM EDT [facility] ([facility]) CVR Blood Pressure 06/13/2021 12:00:00 AM EDT - 2020 12:00:00 AM EDT [facility] ([facility]) HCS Without Test 06/13/2021 12:00:00 AM EDT - 06/13/20 21 12:00:00 AM EDT [facility] ([facility]) OFFICE VISIT, NEW 06/13/2021 12:00:00 AM EDT - 021 12:00:00 AM EDT [facility] ([facility]) Ultrasound Uterus 06/13/2021 12 :00:00 AM EDT - 06/13/2021 12:00:00 AM EDT [facility] ([facility]) URINE TEST 06/13/2021 12:00:00 AM EDT - 06/13/2021 12:00:00 AM EDT [facility] ([facility]) Electrocardiogram Complete 11/07/2020 12:00:00 AM EST [facility] ([facility] Insert Intrauterine Device 07/02/2020 12:00:00 AM EDT [facility] ([facility]) Results ID Date Data Source [id number] 06/29/2021 03:56:08 PM EDT [facility] Name Value Range Interpretation Code Description Data Nati rce(s) Supporting Document(s) LEAD,VENOUS WB @ <2.0 ug/dL (0.0-4.9) [facility] Testing performed by graphite furnaceato timmy absorption spectroscopy. Information for health careproviders on lead poisoningprevention and management isavailable on the [facility] website. ID Date Data Source [id number] 06/13/2021 11:58:21 AM EDT [facility] ([facility]) Name Value Range Interpretation Code Description Data Nati rce(s) Supporting Document(s) PositiveLot: [id number]: 11/02/2022 Abnormal (applies to non-numeric results) High Sensitivity Urine Test [facility] ID Date Data Source [id number] 01/05/2021 11:20:00 AM EDT [facility] Name Value Range Interpretation Code Description Data Nati rce(s) Supporting Document(s) SARS-CoV-2 (COVID-19) RNA [Presence] in Respiratory specimen by ANIKA with probe detection Not Detected [facility] This lab was ordered by [facility] and reported by [facility]. ID Date Data Source [id number] 12/05/2020 11:00:00 AM EST [facility] Name Value Range Interpretation Code Description Data Nati rce(s) Supporting Document(s) SARS coronavirus 2 RNA Not Detected [facility] This lab was ordered by [facility] and reported by [facility]. ID Date Data Source [id number] 11/07/2020 10:23:00 AM EST [facility] ([facility] Name Value Range Interpretation Code Description Data Nati rce(s) Supporting Document(s) Glu 90 mg/dL 70-110 [facility] ([facility] NORMAL RANGES Age WBC RBC HGB HCT MCV PLT Adult M 4.1-10.9 4.20-6.30 12.0-18.0 37.0-51.0 80-97 140-440 Adult F 4.1-10.9 4.04-5.48 12.0-18.0 37.0-51.0 80-97 140-440 0 -1 Yr 5.0-20.0 3.9-5.9 15-18 MV: 44 MV: 91 MV: 277 2-9 Yr. 6.0-17.0 3.8-5.4 11-13 MV: 37 MV: 78 MV: 300 10 Yrs. 5.0-13.0 3.8-5.4 12-15 MV: 39 MV: 80 MV: 250 NOTE: * FOR ADULT BLACK MALES AND FEMALES, NORMAL WBC IS 2.9-7.7 K/ML * FOR ADULT BLACK MALES AND FEMALES, NORMAL RBC,HGB, AND HCT IS 5% LESS SOURCE FOR DATA: Qpyn 1800 OPERATION MANUAL( AUTOMATED BLOOD COUNTS AND DIFF.) APPENDIX B-3 CHRONIC KIDNEY DISEASE STAGING PER NKF: MALE GFR INTERPRETATION: 20-49 YRS: >60 mL/min Normal 50-59 YRS: >56 mL/min Normal 60-69 YRS: >49 mL/min Normal 70-79 YRS: >42 mL/min Normal 80 and above >35 mL/min Normal FEMALE GRF INTERPRETATION: 20-39 YRS: >60 mL/min Normal 40-49 YRS: >58 mL/min Normal 50-59 YRS: >51 mL/min Normal 60-69 YRS: >45 mL/min Normal 70-79 YRS: >39 mL/min Normal 80 and above >32 mL/min Normal Creat 0.5 mg/dL 0.5-1.0 [facility] ([facility] NORMAL RANGES Age WBC RBC HGB HCT MCV PLT Adult M 4.1-10.9 4.20-6.30 12.0-18.0 37.0-51.0 80-97 140-440 Adult F 4.1-10.9 4.04-5.48 12.0-18.0 37.0-51.0 80-97 140-440 0 -1 Yr 5.0-20.0 3.9-5.9 15-18 MV: 44 MV: 91 MV: 277 2-9 Yr. 6.0-17.0 3.8-5.4 11-13 MV: 37 MV: 78 MV: 300 10 Yrs. 5.0-13.0 3.8-5.4 12-15 MV: 39 MV: 80 MV: 250 NOTE: * FOR ADULT BLACK MALES AND FEMALES, NORMAL WBC IS 2.9-7.7 K/ML * FOR ADULT BLACK MALES AND FEMALES, NORMAL RBC,HGB, AND HCT IS 5% LESS SOURCE FOR DATA: Qpyn 1800 OPERATION MANUAL( AUTOMATED BLOOD COUNTS AND DIFF.) APPENDIX B-3 CHRONIC KIDNEY DISEASE STAGING PER NKF: MALE GFR INTERPRETATION: 20-49 YRS: >60 mL/min Normal 50-59 YRS: >56 mL/min Normal 60-69 YRS: >49 mL/min Normal 70-79 YRS: >42 mL/min Normal 80 and above >35 mL/min Normal FEMALE GRF INTERPRETATION: 20-39 YRS: >60 mL/min Normal 40-49 YRS: >58 mL/min Normal 50-59 YRS: >51 mL/min Normal 60-69 YRS: >45 mL/min Normal 70-79 YRS: >39 mL/min Normal 80 and above >32 mL/min Normal BUN 10 mg/dL 8- [facility] NORMAL RANGES Age WBC RBC HGB HCT MCV PLT Adult M 4.1-10.9 4.20-6.30 12.0-18.0 37.0-51.0 80-97 140-440 Adult F 4.1-10.9 4.04-5.48 12.0-18.0 37.0-51.0 80-97 140-440 0 -1 Yr 5.0-20.0 3.9-5.9 15-18 MV: 44 MV: 91 MV: 277 2-9 Yr. 6.0-17.0 3.8-5.4 11-13 MV: 37 MV: 78 MV: 300 10 Yrs. 5.0-13.0 3.8-5.4 12-15 MV: 39 MV: 80 MV: 250 NOTE: * FOR ADULT BLACK MALES AND FEMALES, NORMAL WBC IS 2.9-7.7 K/ML * FOR ADULT BLACK MALES AND FEMALES, NORMAL RBC,HGB, AND HCT IS 5% LESS SOURCE FOR DATA: Qpyn 1800 OPERATION MANUAL( AUTOMATED BLOOD COUNTS AND DIFF.) APPENDIX B-3 CHRONIC KIDNEY DISEASE STAGING PER NKF: MALE GFR INTERPRETATION: 20-49 YRS: >60 mL/min Normal 50-59 YRS: >56 mL/min Normal 60-69 YRS: >49 mL/min Normal 70-79 YRS: >42 mL/min Normal 80 and above >35 mL/min Normal FEMALE GRF INTERPRETATION: 20-39 YRS: >60 mL/min Normal 40-49 YRS: >58 mL/min Normal 50-59 YRS: >51 mL/min Normal 60-69 YRS: >45 mL/min Normal 70-79 YRS: >39 mL/min Normal 80 and above >32 mL/min Normal BUN/Creatinine Ratio 18.9 [facility] ([facility] NORMAL RANGES Age WBC RBC HGB HCT MCV PLT Adult M 4.1-10.9 4.20-6.30 12.0-18.0 37.0-51.0 80-97 140-440 Adult F 4.1-10.9 4.04-5.48 12.0-18.0 37.0-51.0 80-97 140-440 0 -1 Yr 5.0-20.0 3.9-5.9 15-18 MV: 44 MV: 91 MV: 277 2-9 Yr. 6.0-17.0 3.8-5.4 11-13 MV: 37 MV: 78 MV: 300 10 Yrs. 5.0-13.0 3.8-5.4 12-15 MV: 39 MV: 80 MV: 250 NOTE: * FOR ADULT BLACK MALES AND FEMALES, NORMAL WBC IS 2.9-7.7 K/ML * FOR ADULT BLACK MALES AND FEMALES, NORMAL RBC,HGB, AND HCT IS 5% LESS SOURCE FOR DATA: Qpyn 1800 OPERATION MANUAL( AUTOMATED BLOOD COUNTS AND DIFF.) APPENDIX B-3 CHRONIC KIDNEY DISEASE STAGING PER NKF: MALE GFR INTERPRETATION: 20-49 YRS: >60 mL/min Normal 50-59 YRS: >56 mL/min Normal 60-69 YRS: >49 mL/min Normal 70-79 YRS: >42 mL/min Normal 80 and above >35 mL/min Normal FEMALE GRF INTERPRETATION: 20-39 YRS: >60 mL/min Normal 40-49 YRS: >58 mL/min Normal 50-59 YRS: >51 mL/min Normal 60-69 YRS: >45 mL/min Normal 70-79 YRS: >39 mL/min Normal 80 and above >32 mL/min Normal Na 135 mmol/L 136-145 Below low normal [facility] ( [facility] NORMAL RANGES Age WBC RBC HGB HCT MCV PLT Adult M 4.1-10.9 4.20-6.30 12.0-18.0 37.0-51.0 80-97 140-440 Adult F 4.1-10.9 4.04-5.48 12.0-18.0 37.0-51.0 80-97 140-440 0 -1 Yr 5.0-20.0 3.9-5.9 15-18 MV: 44 MV: 91 MV: 277 2-9 Yr. 6.0-17.0 3.8-5.4 11-13 MV: 37 MV: 78 MV: 300 10 Yrs. 5.0-13.0 3.8-5.4 12-15 MV: 39 MV: 80 MV: 250 NOTE: * FOR ADULT BLACK MALES AND FEMALES, NORMAL WBC IS 2.9-7.7 K/ML * FOR ADULT BLACK MALES AND FEMALES, NORMAL RBC,HGB, AND HCT IS 5% LESS SOURCE FOR DATA: Qpyn 1800 OPERATION MANUAL( AUTOMATED BLOOD COUNTS AND DIFF.) APPENDIX B-3 CHRONIC KIDNEY DISEASE STAGING PER NKF: MALE GFR INTERPRETATION: 20-49 YRS: >60 mL/min Normal 50-59 YRS: >56 mL/min Normal 60-69 YRS: >49 mL/min Normal 70-79 YRS: >42 mL/min Normal 80 and above >35 mL/min Normal FEMALE GRF INTERPRETATION: 20-39 YRS: >60 mL/min Normal 40-49 YRS: >58 mL/min Normal 50-59 YRS: >51 mL/min Normal 60-69 YRS: >45 mL/min Normal 70-79 YRS: >39 mL/min Normal 80 and above >32 mL/min Normal Co2 22.3 mmol/L 22.0-29.0 [facility] ([facility] NORMAL RANGES Age WBC RBC HGB HCT MCV PLT Adult M 4.1-10.9 4.20-6.30 12.0-18.0 37.0-51.0 80-97 140-440 Adult F 4.1-10.9 4.04-5.48 12.0-18.0 37.0-51.0 80-97 140-440 0 -1 Yr 5.0-20.0 3.9-5.9 15-18 MV: 44 MV: 91 MV: 277 2-9 Yr. 6.0-17.0 3.8-5.4 11-13 MV: 37 MV: 78 MV: 300 10 Yrs. 5.0-13.0 3.8-5.4 12-15 MV: 39 MV: 80 MV: 250 NOTE: * FOR ADULT BLACK MALES AND FEMALES, NORMAL WBC IS 2.9-7.7 K/ML * FOR ADULT BLACK MALES AND FEMALES, NORMAL RBC,HGB, AND HCT IS 5% LESS SOURCE FOR DATA: Qpyn 1800 OPERATION MANUAL( AUTOMATED BLOOD COUNTS AND DIFF.) APPENDIX B-3 CHRONIC KIDNEY DISEASE STAGING PER NKF: MALE GFR INTERPRETATION: 20-49 YRS: >60 mL/min Normal 50-59 YRS: >56 mL/min Normal 60-69 YRS: >49 mL/min Normal 70-79 YRS: >42 mL/min Normal 80 and above >35 mL/min Normal FEMALE GRF INTERPRETATION: 20-39 YRS: >60 mL/min Normal 40-49 YRS: >58 mL/min Normal 50-59 YRS: >51 mL/min Normal 60-69 YRS: >45 mL/min Normal 70-79 YRS: >39 mL/min Normal 80 and above >32 mL/min Normal CL 106.1 mmol/L 98.0-107.0 [facility] ([facility] NORMAL RANGES Age WBC RBC HGB HCT MCV PLT Adult M 4.1-10.9 4.20-6.30 12.0-18.0 37.0-51.0 80-97 140-440 Adult F 4.1-10.9 4.04-5.48 12.0-18.0 37.0-51.0 80-97 140-440 0 -1 Yr 5.0-20.0 3.9-5.9 15-18 MV: 44 MV: 91 MV: 277 2-9 Yr. 6.0-17.0 3.8-5.4 11-13 MV: 37 MV: 78 MV: 300 10 Yrs. 5.0-13.0 3.8-5.4 12-15 MV: 39 MV: 80 MV: 250 NOTE: * FOR ADULT BLACK MALES AND FEMALES, NORMAL WBC IS 2.9-7.7 K/ML * FOR ADULT BLACK MALES AND FEMALES, NORMAL RBC,HGB, AND HCT IS 5% LESS SOURCE FOR DATA: ARCHIE DYN 1800 OPERATION MANUAL( AUTOMATED BLOOD COUNTS AND DIFF.) APPENDIX B-3 CHRONIC KIDNEY DISEASE STAGING PER NKF: MALE GFR INTERPRETATION: 20-49 YRS: >60 mL/min Normal 50-59 YRS: >56 mL/min Normal 60-69 YRS: >49 mL/min Normal 70-79 YRS: >42 mL/min Normal 80 and above >35 mL/min Normal FEMALE GRF INTERPRETATION: 20-39 YRS: >60 mL/min Normal 40-49 YRS: >58 mL/min Normal 50-59 YRS: >51 mL/min Normal 60-69 YRS: >45 mL/min Normal 70-79 YRS: >39 mL/min Normal 80 and above >32 mL/min Normal K 4.3 mmol/L 3.5-5.1 [facility] NORMAL RANGES Age WBC RBC HGB HCT MCV PLT Adult M 4.1-10.9 4.20-6.30 12.0-18.0 37.0-51.0 80-97 140-440 Adult F 4.1-10.9 4.04-5.48 12.0-18.0 37.0-51.0 80-97 140-440 0 -1 Yr 5.0-20.0 3.9-5.9 15-18 MV: 44 MV: 91 MV: 277 2-9 Yr. 6.0-17.0 3.8-5.4 11-13 MV: 37 MV: 78 MV: 300 10 Yrs. 5.0-13.0 3.8-5.4 12-15 MV: 39 MV: 80 MV: 250 NOTE: * FOR ADULT BLACK MALES AND FEMALES, NORMAL WBC IS 2.9-7.7 K/ML * FOR ADULT BLACK MALES AND FEMALES, NORMAL RBC,HGB, AND HCT IS 5% LESS SOURCE FOR DATA: Qpyn 1800 OPERATION MANUAL( AUTOMATED BLOOD COUNTS AND DIFF.) APPENDIX B-3 CHRONIC KIDNEY DISEASE STAGING PER NKF: MALE GFR INTERPRETATION: 20-49 YRS: >60 mL/min Normal 50-59 YRS: >56 mL/min Normal 60-69 YRS: >49 mL/min Normal 70-79 YRS: >42 mL/min Normal 80 and above >35 mL/min Normal FEMALE GRF INTERPRETATION: 20-39 YRS: >60 mL/min Normal 40-49 YRS: >58 mL/min Normal 50-59 YRS: >51 mL/min Normal 60-69 YRS: >45 mL/min Normal 70-79 YRS: >39 mL/min Normal 80 and above >32 mL/min Normal TP 6.4 g/dL 6.6-8.7 Below low normal [facility] ( [facility] NORMAL RANGES Age WBC RBC HGB HCT MCV PLT Adult M 4.1-10.9 4.20-6.30 12.0-18.0 37.0-51.0 80-97 140-440 Adult F 4.1-10.9 4.04-5.48 12.0-18.0 37.0-51.0 80-97 140-440 0 -1 Yr 5.0-20.0 3.9-5.9 15-18 MV: 44 MV: 91 MV: 277 2-9 Yr. 6.0-17.0 3.8-5.4 11-13 MV: 37 MV: 78 MV: 300 10 Yrs. 5.0-13.0 3.8-5.4 12-15 MV: 39 MV: 80 MV: 250 NOTE: * FOR ADULT BLACK MALES AND FEMALES, NORMAL WBC IS 2.9-7.7 K/ML * FOR ADULT BLACK MALES AND FEMALES, NORMAL RBC,HGB, AND HCT IS 5% LESS SOURCE FOR DATA: Qpyn 1800 OPERATION MANUAL( AUTOMATED BLOOD COUNTS AND DIFF.) APPENDIX B-3 CHRONIC KIDNEY DISEASE STAGING PER NKF: MALE GFR INTERPRETATION: 20-49 YRS: >60 mL/min Normal 50-59 YRS: >56 mL/min Normal 60-69 YRS: >49 mL/min Normal 70-79 YRS: >42 mL/min Normal 80 and above >35 mL/min Normal FEMALE GRF INTERPRETATION: 20-39 YRS: >60 mL/min Normal 40-49 YRS: >58 mL/min Normal 50-59 YRS: >51 mL/min Normal 60-69 YRS: >45 mL/min Normal 70-79 YRS: >39 mL/min Normal 80 and above >32 mL/min Normal Alb 4.2 g/dL 3.4-4.8 [facility] ([facility] NORMAL RANGES Age WBC RBC HGB HCT MCV PLT Adult M 4.1-10.9 4.20-6.30 12.0-18.0 37.0-51.0 80-97 140-440 Adult F 4.1-10.9 4.04-5.48 12.0-18.0 37.0-51.0 80-97 140-440 0 -1 Yr 5.0-20.0 3.9-5.9 15-18 MV: 44 MV: 91 MV: 277 2-9 Yr. 6.0-17.0 3.8-5.4 11-13 MV: 37 MV: 78 MV: 300 10 Yrs. 5.0-13.0 3.8-5.4 12-15 MV: 39 MV: 80 MV: 250 NOTE: * FOR ADULT BLACK MALES AND FEMALES, NORMAL WBC IS 2.9-7.7 K/ML * FOR ADULT BLACK MALES AND FEMALES, NORMAL RBC,HGB, AND HCT IS 5% LESS SOURCE FOR DATA: Qpyn 1800 OPERATION MANUAL( AUTOMATED BLOOD COUNTS AND DIFF.) APPENDIX B-3 CHRONIC KIDNEY DISEASE STAGING PER NKF: MALE GFR INTERPRETATION: 20-49 YRS: >60 mL/min Normal 50-59 YRS: >56 mL/min Normal 60-69 YRS: >49 mL/min Normal 70-79 YRS: >42 mL/min Normal 80 and above >35 mL/min Normal FEMALE GRF INTERPRETATION: 20-39 YRS: >60 mL/min Normal 40-49 YRS: >58 mL/min Normal 50-59 YRS: >51 mL/min Normal 60-69 YRS: >45 mL/min Normal 70-79 YRS: >39 mL/min Normal 80 and above >32 mL/min Normal CA 9.0 mg/dL 8.6-10.2 [facility] ([facility] NORMAL RANGES Age WBC RBC HGB HCT MCV PLT Adult M 4.1-10.9 4.20-6.30 12.0-18.0 37.0-51.0 80-97 140-440 Adult F 4.1-10.9 4.04-5.48 12.0-18.0 37.0-51.0 80-97 140-440 0 -1 Yr 5.0-20.0 3.9-5.9 15-18 MV: 44 MV: 91 MV: 277 2-9 Yr. 6.0-17.0 3.8-5.4 11-13 MV: 37 MV: 78 MV: 300 10 Yrs. 5.0-13.0 3.8-5.4 12-15 MV: 39 MV: 80 MV: 250 NOTE: * FOR ADULT BLACK MALES AND FEMALES, NORMAL WBC IS 2.9-7.7 K/ML * FOR ADULT BLACK MALES AND FEMALES, NORMAL RBC,HGB, AND HCT IS 5% LESS SOURCE FOR DATA: Qpyn 1800 OPERATION MANUAL( AUTOMATED BLOOD COUNTS AND DIFF.) APPENDIX B-3 CHRONIC KIDNEY DISEASE STAGING PER NKF: MALE GFR INTERPRETATION: 20-49 YRS: >60 mL/min Normal 50-59 YRS: >56 mL/min Normal 60-69 YRS: >49 mL/min Normal 70-79 YRS: >42 mL/min Normal 80 and above >35 mL/min Normal FEMALE GRF INTERPRETATION: 20-39 YRS: >60 mL/min Normal 40-49 YRS: >58 mL/min Normal 50-59 YRS: >51 mL/min Normal 60-69 YRS: >45 mL/min Normal 70-79 YRS: >39 mL/min Normal 80 and above >32 mL/min Normal A/G Ratio 1.9 [facility] ([facility] NORMAL RANGES Age WBC RBC HGB HCT MCV PLT Adult M 4.1-10.9 4.20-6.30 12.0-18.0 37.0-51.0 80-97 140-440 Adult F 4.1-10.9 4.04-5.48 12.0-18.0 37.0-51.0 80-97 140-440 0 -1 Yr 5.0-20.0 3.9-5.9 15-18 MV: 44 MV: 91 MV: 277 2-9 Yr. 6.0-17.0 3.8-5.4 11-13 MV: 37 MV: 78 MV: 300 10 Yrs. 5.0-13.0 3.8-5.4 12-15 MV: 39 MV: 80 MV: 250 NOTE: * FOR ADULT BLACK MALES AND FEMALES, NORMAL WBC IS 2.9-7.7 K/ML * FOR ADULT BLACK MALES AND FEMALES, NORMAL RBC,HGB, AND HCT IS 5% LESS SOURCE FOR DATA: Qpyn 1800 OPERATION MANUAL( AUTOMATED BLOOD COUNTS AND DIFF.) APPENDIX B-3 CHRONIC KIDNEY DISEASE STAGING PER NKF: MALE GFR INTERPRETATION: 20-49 YRS: >60 mL/min Normal 50-59 YRS: >56 mL/min Normal 60-69 YRS: >49 mL/min Normal 70-79 YRS: >42 mL/min Normal 80 and above >35 mL/min Normal FEMALE GRF INTERPRETATION: 20-39 YRS: >60 mL/min Normal 40-49 YRS: >58 mL/min Normal 50-59 YRS: >51 mL/min Normal 60-69 YRS: >45 mL/min Normal 70-79 YRS: >39 mL/min Normal 80 and above >32 mL/min Normal Globulin 2.2 [facility] ([facility] NORMAL RANGES Age WBC RBC HGB HCT MCV PLT Adult M 4.1-10.9 4.20-6.30 12.0-18.0 37.0-51.0 80-97 140-440 Adult F 4.1-10.9 4.04-5.48 12.0-18.0 37.0-51.0 80-97 140-440 0 -1 Yr 5.0-20.0 3.9-5.9 15-18 MV: 44 MV: 91 MV: 277 2-9 Yr. 6.0-17.0 3.8-5.4 11-13 MV: 37 MV: 78 MV: 300 10 Yrs. 5.0-13.0 3.8-5.4 12-15 MV: 39 MV: 80 MV: 250 NOTE: * FOR ADULT BLACK MALES AND FEMALES, NORMAL WBC IS 2.9-7.7 K/ML * FOR ADULT BLACK MALES AND FEMALES, NORMAL RBC,HGB, AND HCT IS 5% LESS SOURCE FOR DATA: Qpyn 1800 OPERATION MANUAL( AUTOMATED BLOOD COUNTS AND DIFF.) APPENDIX B-3 CHRONIC KIDNEY DISEASE STAGING PER NKF: MALE GFR INTERPRETATION: 20-49 YRS: >60 mL/min Normal 50-59 YRS: >56 mL/min Normal 60-69 YRS: >49 mL/min Normal 70-79 YRS: >42 mL/min Normal 80 and above >35 mL/min Normal FEMALE GRF INTERPRETATION: 20-39 YRS: >60 mL/min Normal 40-49 YRS: >58 mL/min Normal 50-59 YRS: >51 mL/min Normal 60-69 YRS: >45 mL/min Normal 70-79 YRS: >39 mL/min Normal 80 and above >32 mL/min Normal Alp 86.2 U/L 35-129 [facility] NORMAL RANGES Age WBC RBC HGB HCT MCV PLT Adult M 4.1-10.9 4.20-6.30 12.0-18.0 37.0-51.0 80-97 140-440 Adult F 4.1-10.9 4.04-5.48 12.0-18.0 37.0-51.0 80-97 140-440 0 -1 Yr 5.0-20.0 3.9-5.9 15-18 MV: 44 MV: 91 MV: 277 2-9 Yr. 6.0-17.0 3.8-5.4 11-13 MV: 37 MV: 78 MV: 300 10 Yrs. 5.0-13.0 3.8-5.4 12-15 MV: 39 MV: 80 MV: 250 NOTE: * FOR ADULT BLACK MALES AND FEMALES, NORMAL WBC IS 2.9-7.7 K/ML * FOR ADULT BLACK MALES AND FEMALES, NORMAL RBC,HGB, AND HCT IS 5% LESS SOURCE FOR DATA: Qpyn 1800 OPERATION MANUAL( AUTOMATED BLOOD COUNTS AND DIFF.) APPENDIX B-3 CHRONIC KIDNEY DISEASE STAGING PER NKF: MALE GFR INTERPRETATION: 20-49 YRS: >60 mL/min Normal 50-59 YRS: >56 mL/min Normal 60-69 YRS: >49 mL/min Normal 70-79 YRS: >42 mL/min Normal 80 and above >35 mL/min Normal FEMALE GRF INTERPRETATION: 20-39 YRS: >60 mL/min Normal 40-49 YRS: >58 mL/min Normal 50-59 YRS: >51 mL/min Normal 60-69 YRS: >45 mL/min Normal 70-79 YRS: >39 mL/min Normal 80 and above >32 mL/min Normal Alt (SGPT) 14 U/L 0-41 [facility] ([facility] NORMAL RANGES Age WBC RBC HGB HCT MCV PLT Adult M 4.1-10.9 4.20-6.30 12.0-18.0 37.0-51.0 80-97 140-440 Adult F 4.1-10.9 4.04-5.48 12.0-18.0 37.0-51.0 80-97 140-440 0 -1 Yr 5.0-20.0 3.9-5.9 15-18 MV: 44 MV: 91 MV: 277 2-9 Yr. 6.0-17.0 3.8-5.4 11-13 MV: 37 MV: 78 MV: 300 10 Yrs. 5.0-13.0 3.8-5.4 12-15 MV: 39 MV: 80 MV: 250 NOTE: * FOR ADULT BLACK MALES AND FEMALES, NORMAL WBC IS 2.9-7.7 K/ML * FOR ADULT BLACK MALES AND FEMALES, NORMAL RBC,HGB, AND HCT IS 5% LESS SOURCE FOR DATA: Qpyn 1800 OPERATION MANUAL( AUTOMATED BLOOD COUNTS AND DIFF.) APPENDIX B-3 CHRONIC KIDNEY DISEASE STAGING PER NKF: MALE GFR INTERPRETATION: 20-49 YRS: >60 mL/min Normal 50-59 YRS: >56 mL/min Normal 60-69 YRS: >49 mL/min Normal 70-79 YRS: >42 mL/min Normal 80 and above >35 mL/min Normal FEMALE GRF INTERPRETATION: 20-39 YRS: >60 mL/min Normal 40-49 YRS: >58 mL/min Normal 50-59 YRS: >51 mL/min Normal 60-69 YRS: >45 mL/min Normal 70-79 YRS: >39 mL/min Normal 80 and above >32 mL/min Normal Ast (Sgot) 14 U/L 0-40 [facility] ([facility] NORMAL RANGES Age WBC RBC HGB HCT MCV PLT Adult M 4.1-10.9 4.20-6.30 12.0-18.0 37.0-51.0 80-97 140-440 Adult F 4.1-10.9 4.04-5.48 12.0-18.0 37.0-51.0 80-97 140-440 0 -1 Yr 5.0-20.0 3.9-5.9 15-18 MV: 44 MV: 91 MV: 277 2-9 Yr. 6.0-17.0 3.8-5.4 11-13 MV: 37 MV: 78 MV: 300 10 Yrs. 5.0-13.0 3.8-5.4 12-15 MV: 39 MV: 80 MV: 250 NOTE: * FOR ADULT BLACK MALES AND FEMALES, NORMAL WBC IS 2.9-7.7 K/ML * FOR ADULT BLACK MALES AND FEMALES, NORMAL RBC,HGB, AND HCT IS 5% LESS SOURCE FOR DATA: ARCHIE DYN 1800 OPERATION MANUAL( AUTOMATED BLOOD COUNTS AND DIFF.) APPENDIX B-3 CHRONIC KIDNEY DISEASE STAGING PER NKF: MALE GFR INTERPRETATION: 20-49 YRS: >60 mL/min Normal 50-59 YRS: >56 mL/min Normal 60-69 YRS: >49 mL/min Normal 70-79 YRS: >42 mL/min Normal 80 and above >35 mL/min Normal FEMALE GRF INTERPRETATION: 20-39 YRS: >60 mL/min Normal 40-49 YRS: >58 mL/min Normal 50-59 YRS: >51 mL/min Normal 60-69 YRS: >45 mL/min Normal 70-79 YRS: >39 mL/min Normal 80 and above >32 mL/min Normal Osmolality-Calculated 268.8 [facility] ([facility] NORMAL RANGES Age WBC RBC HGB HCT MCV PLT Adult M 4.1-10.9 4.20-6.30 12.0-18.0 37.0-51.0 80-97 140-440 Adult F 4.1-10.9 4.04-5.48 12.0-18.0 37.0-51.0 80-97 140-440 0 -1 Yr 5.0-20.0 3.9-5.9 15-18 MV: 44 MV: 91 MV: 277 2-9 Yr. 6.0-17.0 3.8-5.4 11-13 MV: 37 MV: 78 MV: 300 10 Yrs. 5.0-13.0 3.8-5.4 12-15 MV: 39 MV: 80 MV: 250 NOTE: * FOR ADULT BLACK MALES AND FEMALES, NORMAL WBC IS 2.9-7.7 K/ML * FOR ADULT BLACK MALES AND FEMALES, NORMAL RBC,HGB, AND HCT IS 5% LESS SOURCE FOR DATA: Qpyn 1800 OPERATION MANUAL( AUTOMATED BLOOD COUNTS AND DIFF.) APPENDIX B-3 CHRONIC KIDNEY DISEASE STAGING PER NKF: MALE GFR INTERPRETATION: 20-49 YRS: >60 mL/min Normal 50-59 YRS: >56 mL/min Normal 60-69 YRS: >49 mL/min Normal 70-79 YRS: >42 mL/min Normal 80 and above >35 mL/min Normal FEMALE GRF INTERPRETATION: 20-39 YRS: >60 mL/min Normal 40-49 YRS: >58 mL/min Normal 50-59 YRS: >51 mL/min Normal 60-69 YRS: >45 mL/min Normal 70-79 YRS: >39 mL/min Normal 80 and above >32 mL/min Normal Anion Gap 11 mmol/L [facility] ([facility] NORMAL RANGES Age WBC RBC HGB HCT MCV PLT Adult M 4.1-10.9 4.20-6.30 12.0-18.0 37.0-51.0 80-97 140-440 Adult F 4.1-10.9 4.04-5.48 12.0-18.0 37.0-51.0 80-97 140-440 0 -1 Yr 5.0-20.0 3.9-5.9 15-18 MV: 44 MV: 91 MV: 277 2-9 Yr. 6.0-17.0 3.8-5.4 11-13 MV: 37 MV: 78 MV: 300 10 Yrs. 5.0-13.0 3.8-5.4 12-15 MV: 39 MV: 80 MV: 250 NOTE: * FOR ADULT BLACK MALES AND FEMALES, NORMAL WBC IS 2.9-7.7 K/ML * FOR ADULT BLACK MALES AND FEMALES, NORMAL RBC,HGB, AND HCT IS 5% LESS SOURCE FOR DATA: Qpyn 1800 OPERATION MANUAL( AUTOMATED BLOOD COUNTS AND DIFF.) APPENDIX B-3 CHRONIC KIDNEY DISEASE STAGING PER NKF: MALE GFR INTERPRETATION: 20-49 YRS: >60 mL/min Normal 50-59 YRS: >56 mL/min Normal 60-69 YRS: >49 mL/min Normal 70-79 YRS: >42 mL/min Normal 80 and above >35 mL/min Normal FEMALE GRF INTERPRETATION: 20-39 YRS: >60 mL/min Normal 40-49 YRS: >58 mL/min Normal 50-59 YRS: >51 mL/min Normal 60-69 YRS: >45 mL/min Normal 70-79 YRS: >39 mL/min Normal 80 and above >32 mL/min Normal Tbili 0.41 mg/dL 0.0-1.2 [facility] ([facility] NORMAL RANGES Age WBC RBC HGB HCT MCV PLT Adult M 4.1-10.9 4.20-6.30 12.0-18.0 37.0-51.0 80-97 140-440 Adult F 4.1-10.9 4.04-5.48 12.0-18.0 37.0-51.0 80-97 140-440 0 -1 Yr 5.0-20.0 3.9-5.9 15-18 MV: 44 MV: 91 MV: 277 2-9 Yr. 6.0-17.0 3.8-5.4 11-13 MV: 37 MV: 78 MV: 300 10 Yrs. 5.0-13.0 3.8-5.4 12-15 MV: 39 MV: 80 MV: 250 NOTE: * FOR ADULT BLACK MALES AND FEMALES, NORMAL WBC IS 2.9-7.7 K/ML * FOR ADULT BLACK MALES AND FEMALES, NORMAL RBC,HGB, AND HCT IS 5% LESS SOURCE FOR DATA: Qpyn 1800 OPERATION MANUAL( AUTOMATED BLOOD COUNTS AND DIFF.) APPENDIX B-3 CHRONIC KIDNEY DISEASE STAGING PER NKF: MALE GFR INTERPRETATION: 20-49 YRS: >60 mL/min Normal 50-59 YRS: >56 mL/min Normal 60-69 YRS: >49 mL/min Normal 70-79 YRS: >42 mL/min Normal 80 and above >35 mL/min Normal FEMALE GRF INTERPRETATION: 20-39 YRS: >60 mL/min Normal 40-49 YRS: >58 mL/min Normal 50-59 YRS: >51 mL/min Normal 60-69 YRS: >45 mL/min Normal 70-79 YRS: >39 mL/min Normal 80 and above >32 mL/min Normal eGFR Non-Afr. Guyanese 135 # [facility] ([facility] NORMAL RANGES Age WBC RBC HGB HCT MCV PLT Adult M 4.1-10.9 4.20-6.30 12.0-18.0 37.0-51.0 80-97 140-440 Adult F 4.1-10.9 4.04-5.48 12.0-18.0 37.0-51.0 80-97 140-440 0 -1 Yr 5.0-20.0 3.9-5.9 15-18 MV: 44 MV: 91 MV: 277 2-9 Yr. 6.0-17.0 3.8-5.4 11-13 MV: 37 MV: 78 MV: 300 10 Yrs. 5.0-13.0 3.8-5.4 12-15 MV: 39 MV: 80 MV: 250 NOTE: * FOR ADULT BLACK MALES AND FEMALES, NORMAL WBC IS 2.9-7.7 K/ML * FOR ADULT BLACK MALES AND FEMALES, NORMAL RBC,HGB, AND HCT IS 5% LESS SOURCE FOR DATA: Qpyn 1800 OPERATION MANUAL( AUTOMATED BLOOD COUNTS AND DIFF.) APPENDIX B-3 CHRONIC KIDNEY DISEASE STAGING PER NKF: MALE GFR INTERPRETATION: 20-49 YRS: >60 mL/min Normal 50-59 YRS: >56 mL/min Normal 60-69 YRS: >49 mL/min Normal 70-79 YRS: >42 mL/min Normal 80 and above >35 mL/min Normal FEMALE GRF INTERPRETATION: 20-39 YRS: >60 mL/min Normal 40-49 YRS: >58 mL/min Normal 50-59 YRS: >51 mL/min Normal 60-69 YRS: >45 mL/min Normal 70-79 YRS: >39 mL/min Normal 80 and above >32 mL/min Normal eGFR 157 # [facility] ( [facility] NORMAL RANGES Age WBC RBC HGB HCT MCV PLT Adult M 4.1-10.9 4.20-6.30 12.0-18.0 37.0-51.0 80-97 140-440 Adult F 4.1-10.9 4.04-5.48 12.0-18.0 37.0-51.0 80-97 140-440 0 -1 Yr 5.0-20.0 3.9-5.9 15-18 MV: 44 MV: 91 MV: 277 2-9 Yr. 6.0-17.0 3.8-5.4 11-13 MV: 37 MV: 78 MV: 300 10 Yrs. 5.0-13.0 3.8-5.4 12-15 MV: 39 MV: 80 MV: 250 NOTE: * FOR ADULT BLACK MALES AND FEMALES, NORMAL WBC IS 2.9-7.7 K/ML * FOR ADULT BLACK MALES AND FEMALES, NORMAL RBC,HGB, AND HCT IS 5% LESS SOURCE FOR DATA: Qpyn 1800 OPERATION MANUAL( AUTOMATED BLOOD COUNTS AND DIFF.) APPENDIX B-3 CHRONIC KIDNEY DISEASE STAGING PER NKF: MALE GFR INTERPRETATION: 20-49 YRS: >60 mL/min Normal 50-59 YRS: >56 mL/min Normal 60-69 YRS: >49 mL/min Normal 70-79 YRS: >42 mL/min Normal 80 and above >35 mL/min Normal FEMALE GRF INTERPRETATION: 20-39 YRS: >60 mL/min Normal 40-49 YRS: >58 mL/min Normal 50-59 YRS: >51 mL/min Normal 60-69 YRS: >45 mL/min Normal 70-79 YRS: >39 mL/min Normal 80 and above >32 mL/min Normal ID Date Data Source [id number] 11/07/2020 10:23:00 AM EST [facility] ([facility] Name Value Range Interpretation Code Description Data Nati rce(s) Supporting Document(s) WBC 4.8 10E3/uL 4.1-10.9 [facility] ([facility] NORMAL RANGES Age WBC RBC HGB HCT MCV PLT Adult M 4.1-10.9 4.20-6.30 12.0-18.0 37.0-51.0 80-97 140-440 Adult F 4.1-10.9 4.04-5.48 12.0-18.0 37.0-51.0 80-97 140-440 0 -1 Yr 5.0-20.0 3.9-5.9 15-18 MV: 44 MV: 91 MV: 277 2-9 Yr. 6.0-17.0 3.8-5.4 11-13 MV: 37 MV: 78 MV: 300 10 Yrs. 5.0-13.0 3.8-5.4 12-15 MV: 39 MV: 80 MV: 250 NOTE: * FOR ADULT BLACK MALES AND FEMALES, NORMAL WBC IS 2.9-7.7 K/ML * FOR ADULT BLACK MALES AND FEMALES, NORMAL RBC,HGB, AND HCT IS 5% LESS SOURCE FOR DATA: Qpyn 1800 OPERATION MANUAL( AUTOMATED BLOOD COUNTS AND DIFF.) APPENDIX B-3 CHRONIC KIDNEY DISEASE STAGING PER NKF: MALE GFR INTERPRETATION: 20-49 YRS: >60 mL/min Normal 50-59 YRS: >56 mL/min Normal 60-69 YRS: >49 mL/min Normal 70-79 YRS: >42 mL/min Normal 80 and above >35 mL/min Normal FEMALE GRF INTERPRETATION: 20-39 YRS: >60 mL/min Normal 40-49 YRS: >58 mL/min Normal 50-59 YRS: >51 mL/min Normal 60-69 YRS: >45 mL/min Normal 70-79 YRS: >39 mL/min Normal 80 and above >32 mL/min Normal RBC 4.30 10E6/uL 4.20-6.30 [facility] NORMAL RANGES Age WBC RBC HGB HCT MCV PLT Adult M 4.1-10.9 4.20-6.30 12.0-18.0 37.0-51.0 80-97 140-440 Adult F 4.1-10.9 4.04-5.48 12.0-18.0 37.0-51.0 80-97 140-440 0 -1 Yr 5.0-20.0 3.9-5.9 15-18 MV: 44 MV: 91 MV: 277 2-9 Yr. 6.0-17.0 3.8-5.4 11-13 MV: 37 MV: 78 MV: 300 10 Yrs. 5.0-13.0 3.8-5.4 12-15 MV: 39 MV: 80 MV: 250 NOTE: * FOR ADULT BLACK MALES AND FEMALES, NORMAL WBC IS 2.9-7.7 K/ML * FOR ADULT BLACK MALES AND FEMALES, NORMAL RBC,HGB, AND HCT IS 5% LESS SOURCE FOR DATA: Qpyn 1800 OPERATION MANUAL( AUTOMATED BLOOD COUNTS AND DIFF.) APPENDIX B-3 CHRONIC KIDNEY DISEASE STAGING PER NKF: MALE GFR INTERPRETATION: 20-49 YRS: >60 mL/min Normal 50-59 YRS: >56 mL/min Normal 60-69 YRS: >49 mL/min Normal 70-79 YRS: >42 mL/min Normal 80 and above >35 mL/min Normal FEMALE GRF INTERPRETATION: 20-39 YRS: >60 mL/min Normal 40-49 YRS: >58 mL/min Normal 50-59 YRS: >51 mL/min Normal 60-69 YRS: >45 mL/min Normal 70-79 YRS: >39 mL/min Normal 80 and above >32 mL/min Normal HCT 36.8 % 37.0-51.0 Below low normal [facility] ( [facility] NORMAL RANGES Age WBC RBC HGB HCT MCV PLT Adult M 4.1-10.9 4.20-6.30 12.0-18.0 37.0-51.0 80-97 140-440 Adult F 4.1-10.9 4.04-5.48 12.0-18.0 37.0-51.0 80-97 140-440 0 -1 Yr 5.0-20.0 3.9-5.9 15-18 MV: 44 MV: 91 MV: 277 2-9 Yr. 6.0-17.0 3.8-5.4 11-13 MV: 37 MV: 78 MV: 300 10 Yrs. 5.0-13.0 3.8-5.4 12-15 MV: 39 MV: 80 MV: 250 NOTE: * FOR ADULT BLACK MALES AND FEMALES, NORMAL WBC IS 2.9-7.7 K/ML * FOR ADULT BLACK MALES AND FEMALES, NORMAL RBC,HGB, AND HCT IS 5% LESS SOURCE FOR DATA: Qpyn 1800 OPERATION MANUAL( AUTOMATED BLOOD COUNTS AND DIFF.) APPENDIX B-3 CHRONIC KIDNEY DISEASE STAGING PER NKF: MALE GFR INTERPRETATION: 20-49 YRS: >60 mL/min Normal 50-59 YRS: >56 mL/min Normal 60-69 YRS: >49 mL/min Normal 70-79 YRS: >42 mL/min Normal 80 and above >35 mL/min Normal FEMALE GRF INTERPRETATION: 20-39 YRS: >60 mL/min Normal 40-49 YRS: >58 mL/min Normal 50-59 YRS: >51 mL/min Normal 60-69 YRS: >45 mL/min Normal 70-79 YRS: >39 mL/min Normal 80 and above >32 mL/min Normal HGB 12.8 g/dL 12.0-18.0 [facility] NORMAL RANGES Age WBC RBC HGB HCT MCV PLT Adult M 4.1-10.9 4.20-6.30 12.0-18.0 37.0-51.0 80-97 140-440 Adult F 4.1-10.9 4.04-5.48 12.0-18.0 37.0-51.0 80-97 140-440 0 -1 Yr 5.0-20.0 3.9-5.9 15-18 MV: 44 MV: 91 MV: 277 2-9 Yr. 6.0-17.0 3.8-5.4 11-13 MV: 37 MV: 78 MV: 300 10 Yrs. 5.0-13.0 3.8-5.4 12-15 MV: 39 MV: 80 MV: 250 NOTE: * FOR ADULT BLACK MALES AND FEMALES, NORMAL WBC IS 2.9-7.7 K/ML * FOR ADULT BLACK MALES AND FEMALES, NORMAL RBC,HGB, AND HCT IS 5% LESS SOURCE FOR DATA: ARCHIE DYN 1800 OPERATION MANUAL( AUTOMATED BLOOD COUNTS AND DIFF.) APPENDIX B-3 CHRONIC KIDNEY DISEASE STAGING PER NKF: MALE GFR INTERPRETATION: 20-49 YRS: >60 mL/min Normal 50-59 YRS: >56 mL/min Normal 60-69 YRS: >49 mL/min Normal 70-79 YRS: >42 mL/min Normal 80 and above >35 mL/min Normal FEMALE GRF INTERPRETATION: 20-39 YRS: >60 mL/min Normal 40-49 YRS: >58 mL/min Normal 50-59 YRS: >51 mL/min Normal 60-69 YRS: >45 mL/min Normal 70-79 YRS: >39 mL/min Normal 80 and above >32 mL/min Normal MCV 85.6 fL 80.0-97.0 [facility] ([facility] NORMAL RANGES Age WBC RBC HGB HCT MCV PLT Adult M 4.1-10.9 4.20-6.30 12.0-18.0 37.0-51.0 80-97 140-440 Adult F 4.1-10.9 4.04-5.48 12.0-18.0 37.0-51.0 80-97 140-440 0 -1 Yr 5.0-20.0 3.9-5.9 15-18 MV: 44 MV: 91 MV: 277 2-9 Yr. 6.0-17.0 3.8-5.4 11-13 MV: 37 MV: 78 MV: 300 10 Yrs. 5.0-13.0 3.8-5.4 12-15 MV: 39 MV: 80 MV: 250 NOTE: * FOR ADULT BLACK MALES AND FEMALES, NORMAL WBC IS 2.9-7.7 K/ML * FOR ADULT BLACK MALES AND FEMALES, NORMAL RBC,HGB, AND HCT IS 5% LESS SOURCE FOR DATA: Qpyn 1800 OPERATION MANUAL( AUTOMATED BLOOD COUNTS AND DIFF.) APPENDIX B-3 CHRONIC KIDNEY DISEASE STAGING PER NKF: MALE GFR INTERPRETATION: 20-49 YRS: >60 mL/min Normal 50-59 YRS: >56 mL/min Normal 60-69 YRS: >49 mL/min Normal 70-79 YRS: >42 mL/min Normal 80 and above >35 mL/min Normal FEMALE GRF INTERPRETATION: 20-39 YRS: >60 mL/min Normal 40-49 YRS: >58 mL/min Normal 50-59 YRS: >51 mL/min Normal 60-69 YRS: >45 mL/min Normal 70-79 YRS: >39 mL/min Normal 80 and above >32 mL/min Normal MCH 29.8 pg 26.0-32.0 [facility] ([facility] NORMAL RANGES Age WBC RBC HGB HCT MCV PLT Adult M 4.1-10.9 4.20-6.30 12.0-18.0 37.0-51.0 80-97 140-440 Adult F 4.1-10.9 4.04-5.48 12.0-18.0 37.0-51.0 80-97 140-440 0 -1 Yr 5.0-20.0 3.9-5.9 15-18 MV: 44 MV: 91 MV: 277 2-9 Yr. 6.0-17.0 3.8-5.4 11-13 MV: 37 MV: 78 MV: 300 10 Yrs. 5.0-13.0 3.8-5.4 12-15 MV: 39 MV: 80 MV: 250 NOTE: * FOR ADULT BLACK MALES AND FEMALES, NORMAL WBC IS 2.9-7.7 K/ML * FOR ADULT BLACK MALES AND FEMALES, NORMAL RBC,HGB, AND HCT IS 5% LESS SOURCE FOR DATA: Qpyn 1800 OPERATION MANUAL( AUTOMATED BLOOD COUNTS AND DIFF.) APPENDIX B-3 CHRONIC KIDNEY DISEASE STAGING PER NKF: MALE GFR INTERPRETATION: 20-49 YRS: >60 mL/min Normal 50-59 YRS: >56 mL/min Normal 60-69 YRS: >49 mL/min Normal 70-79 YRS: >42 mL/min Normal 80 and above >35 mL/min Normal FEMALE GRF INTERPRETATION: 20-39 YRS: >60 mL/min Normal 40-49 YRS: >58 mL/min Normal 50-59 YRS: >51 mL/min Normal 60-69 YRS: >45 mL/min Normal 70-79 YRS: >39 mL/min Normal 80 and above >32 mL/min Normal PLT 245 10E3/uL 140-440 [facility] ([facility] NORMAL RANGES Age WBC RBC HGB HCT MCV PLT Adult M 4.1-10.9 4.20-6.30 12.0-18.0 37.0-51.0 80-97 140-440 Adult F 4.1-10.9 4.04-5.48 12.0-18.0 37.0-51.0 80-97 140-440 0 -1 Yr 5.0-20.0 3.9-5.9 15-18 MV: 44 MV: 91 MV: 277 2-9 Yr. 6.0-17.0 3.8-5.4 11-13 MV: 37 MV: 78 MV: 300 10 Yrs. 5.0-13.0 3.8-5.4 12-15 MV: 39 MV: 80 MV: 250 NOTE: * FOR ADULT BLACK MALES AND FEMALES, NORMAL WBC IS 2.9-7.7 K/ML * FOR ADULT BLACK MALES AND FEMALES, NORMAL RBC,HGB, AND HCT IS 5% LESS SOURCE FOR DATA: Qpyn 1800 OPERATION MANUAL( AUTOMATED BLOOD COUNTS AND DIFF.) APPENDIX B-3 CHRONIC KIDNEY DISEASE STAGING PER NKF: MALE GFR INTERPRETATION: 20-49 YRS: >60 mL/min Normal 50-59 YRS: >56 mL/min Normal 60-69 YRS: >49 mL/min Normal 70-79 YRS: >42 mL/min Normal 80 and above >35 mL/min Normal FEMALE GRF INTERPRETATION: 20-39 YRS: >60 mL/min Normal 40-49 YRS: >58 mL/min Normal 50-59 YRS: >51 mL/min Normal 60-69 YRS: >45 mL/min Normal 70-79 YRS: >39 mL/min Normal 80 and above >32 mL/min Normal MCHC 34.8 g/dL 31.0-36.0 [facility] ([facility] NORMAL RANGES Age WBC RBC HGB HCT MCV PLT Adult M 4.1-10.9 4.20-6.30 12.0-18.0 37.0-51.0 80-97 140-440 Adult F 4.1-10.9 4.04-5.48 12.0-18.0 37.0-51.0 80-97 140-440 0 -1 Yr 5.0-20.0 3.9-5.9 15-18 MV: 44 MV: 91 MV: 277 2-9 Yr. 6.0-17.0 3.8-5.4 11-13 MV: 37 MV: 78 MV: 300 10 Yrs. 5.0-13.0 3.8-5.4 12-15 MV: 39 MV: 80 MV: 250 NOTE: * FOR ADULT BLACK MALES AND FEMALES, NORMAL WBC IS 2.9-7.7 K/ML * FOR ADULT BLACK MALES AND FEMALES, NORMAL RBC,HGB, AND HCT IS 5% LESS SOURCE FOR DATA: Qpyn 1800 OPERATION MANUAL( AUTOMATED BLOOD COUNTS AND DIFF.) APPENDIX B-3 CHRONIC KIDNEY DISEASE STAGING PER NKF: MALE GFR INTERPRETATION: 20-49 YRS: >60 mL/min Normal 50-59 YRS: >56 mL/min Normal 60-69 YRS: >49 mL/min Normal 70-79 YRS: >42 mL/min Normal 80 and above >35 mL/min Normal FEMALE GRF INTERPRETATION: 20-39 YRS: >60 mL/min Normal 40-49 YRS: >58 mL/min Normal 50-59 YRS: >51 mL/min Normal 60-69 YRS: >45 mL/min Normal 70-79 YRS: >39 mL/min Normal 80 and above >32 mL/min Normal Lym% 31.1 % 10.0-58.5 [facility] ([facility] NORMAL RANGES Age WBC RBC HGB HCT MCV PLT Adult M 4.1-10.9 4.20-6.30 12.0-18.0 37.0-51.0 80-97 140-440 Adult F 4.1-10.9 4.04-5.48 12.0-18.0 37.0-51.0 80-97 140-440 0 -1 Yr 5.0-20.0 3.9-5.9 15-18 MV: 44 MV: 91 MV: 277 2-9 Yr. 6.0-17.0 3.8-5.4 11-13 MV: 37 MV: 78 MV: 300 10 Yrs. 5.0-13.0 3.8-5.4 12-15 MV: 39 MV: 80 MV: 250 NOTE: * FOR ADULT BLACK MALES AND FEMALES, NORMAL WBC IS 2.9-7.7 K/ML * FOR ADULT BLACK MALES AND FEMALES, NORMAL RBC,HGB, AND HCT IS 5% LESS SOURCE FOR DATA: Qpyn 1800 OPERATION MANUAL( AUTOMATED BLOOD COUNTS AND DIFF.) APPENDIX B-3 CHRONIC KIDNEY DISEASE STAGING PER NKF: MALE GFR INTERPRETATION: 20-49 YRS: >60 mL/min Normal 50-59 YRS: >56 mL/min Normal 60-69 YRS: >49 mL/min Normal 70-79 YRS: >42 mL/min Normal 80 and above >35 mL/min Normal FEMALE GRF INTERPRETATION: 20-39 YRS: >60 mL/min Normal 40-49 YRS: >58 mL/min Normal 50-59 YRS: >51 mL/min Normal 60-69 YRS: >45 mL/min Normal 70-79 YRS: >39 mL/min Normal 80 and above >32 mL/min Normal RDW-CV 12.8 % 11.5-14.5 [facility] ([facility] NORMAL RANGES Age WBC RBC HGB HCT MCV PLT Adult M 4.1-10.9 4.20-6.30 12.0-18.0 37.0-51.0 80-97 140-440 Adult F 4.1-10.9 4.04-5.48 12.0-18.0 37.0-51.0 80-97 140-440 0 -1 Yr 5.0-20.0 3.9-5.9 15-18 MV: 44 MV: 91 MV: 277 2-9 Yr. 6.0-17.0 3.8-5.4 11-13 MV: 37 MV: 78 MV: 300 12 Yrs. 5.0-13.0 3.8-5.4 12-15 MV: 39 MV: 80 MV: 250 NOTE: * FOR ADULT BLACK MALES AND FEMALES, NORMAL WBC IS 2.9-7.7 K/ML * FOR ADULT BLACK MALES AND FEMALES, NORMAL RBC,HGB, AND HCT IS 5% LESS SOURCE FOR DATA: Qpyn 1800 OPERATION MANUAL( AUTOMATED BLOOD COUNTS AND DIFF.) APPENDIX B-3 CHRONIC KIDNEY DISEASE STAGING PER NKF: MALE GFR INTERPRETATION: 20-49 YRS: >60 mL/min Normal 50-59 YRS: >56 mL/min Normal 60-69 YRS: >49 mL/min Normal 70-79 YRS: >42 mL/min Normal 80 and above >35 mL/min Normal FEMALE GRF INTERPRETATION: 20-39 YRS: >60 mL/min Normal 40-49 YRS: >58 mL/min Normal 50-59 YRS: >51 mL/min Normal 60-69 YRS: >45 mL/min Normal 70-79 YRS: >39 mL/min Normal 80 and above >32 mL/min Normal Neut% 59.8 % 37.0-92.0 [facility] NORMAL RANGES Age WBC RBC HGB HCT MCV PLT Adult M 4.1-10.9 4.20-6.30 12.0-18.0 37.0-51.0 80-97 140-440 Adult F 4.1-10.9 4.04-5.48 12.0-18.0 37.0-51.0 80-97 140-440 0 -1 Yr 5.0-20.0 3.9-5.9 15-18 MV: 44 MV: 91 MV: 277 2-9 Yr. 6.0-17.0 3.8-5.4 11-13 MV: 37 MV: 78 MV: 300 10 Yrs. 5.0-13.0 3.8-5.4 12-15 MV: 39 MV: 80 MV: 250 NOTE: * FOR ADULT BLACK MALES AND FEMALES, NORMAL WBC IS 2.9-7.7 K/ML * FOR ADULT BLACK MALES AND FEMALES, NORMAL RBC,HGB, AND HCT IS 5% LESS SOURCE FOR DATA: Qpyn 1800 OPERATION MANUAL( AUTOMATED BLOOD COUNTS AND DIFF.) APPENDIX B-3 CHRONIC KIDNEY DISEASE STAGING PER NKF: MALE GFR INTERPRETATION: 20-49 YRS: >60 mL/min Normal 50-59 YRS: >56 mL/min Normal 60-69 YRS: >49 mL/min Normal 70-79 YRS: >42 mL/min Normal 80 and above >35 mL/min Normal FEMALE GRF INTERPRETATION: 20-39 YRS: >60 mL/min Normal 40-49 YRS: >58 mL/min Normal 50-59 YRS: >51 mL/min Normal 60-69 YRS: >45 mL/min Normal 70-79 YRS: >39 mL/min Normal 80 and above >32 mL/min Normal MXD% 9.1 % 0.1-24.0 [facility] ([facility] NORMAL RANGES Age WBC RBC HGB HCT MCV PLT Adult M 4.1-10.9 4.20-6.30 12.0-18.0 37.0-51.0 80-97 140-440 Adult F 4.1-10.9 4.04-5.48 12.0-18.0 37.0-51.0 80-97 140-440 0 -1 Yr 5.0-20.0 3.9-5.9 15-18 MV: 44 MV: 91 MV: 277 2-9 Yr. 6.0-17.0 3.8-5.4 11-13 MV: 37 MV: 78 MV: 300 10 Yrs. 5.0-13.0 3.8-5.4 12-15 MV: 39 MV: 80 MV: 250 NOTE: * FOR ADULT BLACK MALES AND FEMALES, NORMAL WBC IS 2.9-7.7 K/ML * FOR ADULT BLACK MALES AND FEMALES, NORMAL RBC,HGB, AND HCT IS 5% LESS SOURCE FOR DATA: Qpyn 1800 OPERATION MANUAL( AUTOMATED BLOOD COUNTS AND DIFF.) APPENDIX B-3 CHRONIC KIDNEY DISEASE STAGING PER NKF: MALE GFR INTERPRETATION: 20-49 YRS: >60 mL/min Normal 50-59 YRS: >56 mL/min Normal 60-69 YRS: >49 mL/min Normal 70-79 YRS: >42 mL/min Normal 80 and above >35 mL/min Normal FEMALE GRF INTERPRETATION: 20-39 YRS: >60 mL/min Normal 40-49 YRS: >58 mL/min Normal 50-59 YRS: >51 mL/min Normal 60-69 YRS: >45 mL/min Normal 70-79 YRS: >39 mL/min Normal 80 and above >32 mL/min Normal Lym# 1.5 10E3/uL 0.6-4.1 [facility] ([facility] NORMAL RANGES Age WBC RBC HGB HCT MCV PLT Adult M 4.1-10.9 4.20-6.30 12.0-18.0 37.0-51.0 80-97 140-440 Adult F 4.1-10.9 4.04-5.48 12.0-18.0 37.0-51.0 80-97 140-440 0 -1 Yr 5.0-20.0 3.9-5.9 15-18 MV: 44 MV: 91 MV: 277 2-9 Yr. 6.0-17.0 3.8-5.4 11-13 MV: 37 MV: 78 MV: 300 10 Yrs. 5.0-13.0 3.8-5.4 12-15 MV: 39 MV: 80 MV: 250 NOTE: * FOR ADULT BLACK MALES AND FEMALES, NORMAL WBC IS 2.9-7.7 K/ML * FOR ADULT BLACK MALES AND FEMALES, NORMAL RBC,HGB, AND HCT IS 5% LESS SOURCE FOR DATA: ARCHIE DYN 1800 OPERATION MANUAL( AUTOMATED BLOOD COUNTS AND DIFF.) APPENDIX B-3 CHRONIC KIDNEY DISEASE STAGING PER NKF: MALE GFR INTERPRETATION: 20-49 YRS: >60 mL/min Normal 50-59 YRS: >56 mL/min Normal 60-69 YRS: >49 mL/min Normal 70-79 YRS: >42 mL/min Normal 80 and above >35 mL/min Normal FEMALE GRF INTERPRETATION: 20-39 YRS: >60 mL/min Normal 40-49 YRS: >58 mL/min Normal 50-59 YRS: >51 mL/min Normal 60-69 YRS: >45 mL/min Normal 70-79 YRS: >39 mL/min Normal 80 and above >32 mL/min Normal Neut# 2.9 % 2.0-7.8 [facility] ([facility] NORMAL RANGES Age WBC RBC HGB HCT MCV PLT Adult M 4.1-10.9 4.20-6.30 12.0-18.0 37.0-51.0 80-97 140-440 Adult F 4.1-10.9 4.04-5.48 12.0-18.0 37.0-51.0 80- 140-440 0 -1 Yr 5.0-20.0 3.9-5.9 15-18 MV: 44 MV: 91 MV: 277 2-9 Yr. 6.0-17.0 3.8-5.4 11-13 MV: 37 MV: 78 MV: 300 10 Yrs. 5.0-13.0 3.8-5.4 12-15 MV: 39 MV: 80 MV: 250 NOTE: * FOR ADULT BLACK MALES AND FEMALES, NORMAL WBC IS 2.9-7.7 K/ML * FOR ADULT BLACK MALES AND FEMALES, NORMAL RBC,HGB, AND HCT IS 5% LESS SOURCE FOR DATA: ARCHIE DYN 1800 OPERATION MANUAL( AUTOMATED BLOOD COUNTS AND DIFF.) APPENDIX B-3 CHRONIC KIDNEY DISEASE STAGING PER NKF: MALE GFR INTERPRETATION: 20-49 YRS: >60 mL/min Normal 50-59 YRS: >56 mL/min Normal 60-69 YRS: >49 mL/min Normal 70-79 YRS: >42 mL/min Normal 80 and above >35 mL/min Normal FEMALE GRF INTERPRETATION: 20-39 YRS: >60 mL/min Normal 40-49 YRS: >58 mL/min Normal 50-59 YRS: >51 mL/min Normal 60-69 YRS: >45 mL/min Normal 70-79 YRS: >39 mL/min Normal 80 and above >32 mL/min Normal MXD# 0.4 10E3/uL 0.0-1.8 [facility] ([facility] NORMAL RANGES Age WBC RBC HGB HCT MCV PLT Adult M 4.1-10.9 4.20-6.30 12.0-18.0 37.0-51.0 80-97 140-440 Adult F 4.1-10.9 4.04-5.48 12.0-18.0 37.0-51.0 80-97 140-440 0 -1 Yr 5.0-20.0 3.9-5.9 15-18 MV: 44 MV: 91 MV: 277 2-9 Yr. 6.0-17.0 3.8-5.4 11-13 MV: 37 MV: 78 MV: 300 10 Yrs. 5.0-13.0 3.8-5.4 12-15 MV: 39 MV: 80 MV: 250 NOTE: * FOR ADULT BLACK MALES AND FEMALES, NORMAL WBC IS 2.9-7.7 K/ML * FOR ADULT BLACK MALES AND FEMALES, NORMAL RBC,HGB, AND HCT IS 5% LESS SOURCE FOR DATA: Qpyn 1800 OPERATION MANUAL( AUTOMATED BLOOD COUNTS AND DIFF.) APPENDIX B-3 CHRONIC KIDNEY DISEASE STAGING PER NKF: MALE GFR INTERPRETATION: 20-49 YRS: >60 mL/min Normal 50-59 YRS: >56 mL/min Normal 60-69 YRS: >49 mL/min Normal 70-79 YRS: >42 mL/min Normal 80 and above >35 mL/min Normal FEMALE GRF INTERPRETATION: 20-39 YRS: >60 mL/min Normal 40-49 YRS: >58 mL/min Normal 50-59 YRS: >51 mL/min Normal 60-69 YRS: >45 mL/min Normal 70-79 YRS: >39 mL/min Normal 80 and above >32 mL/min Normal MPV 10.3 fL 9.0-13.0 [facility] ([facility] NORMAL RANGES Age WBC RBC HGB HCT MCV PLT Adult M 4.1-10.9 4.20-6.30 12.0-18.0 37.0-51.0 80-97 140-440 Adult F 4.1-10.9 4.04-5.48 12.0-18.0 37.0-51.0 80-97 140-440 0 -1 Yr 5.0-20.0 3.9-5.9 15-18 MV: 44 MV: 91 MV: 277 2-9 Yr. 6.0-17.0 3.8-5.4 11-13 MV: 37 MV: 78 MV: 300 10 Yrs. 5.0-13.0 3.8-5.4 12-15 MV: 39 MV: 80 MV: 250 NOTE: * FOR ADULT BLACK MALES AND FEMALES, NORMAL WBC IS 2.9-7.7 K/ML * FOR ADULT BLACK MALES AND FEMALES, NORMAL RBC,HGB, AND HCT IS 5% LESS SOURCE FOR DATA: Qpyn 1800 OPERATION MANUAL( AUTOMATED BLOOD COUNTS AND DIFF.) APPENDIX B-3 CHRONIC KIDNEY DISEASE STAGING PER NKF: MALE GFR INTERPRETATION: 20-49 YRS: >60 mL/min Normal 50-59 YRS: >56 mL/min Normal 60-69 YRS: >49 mL/min Normal 70-79 YRS: >42 mL/min Normal 80 and above >35 mL/min Normal FEMALE GRF INTERPRETATION: 20-39 YRS: >60 mL/min Normal 40-49 YRS: >58 mL/min Normal 50-59 YRS: >51 mL/min Normal 60-69 YRS: >45 mL/min Normal 70-79 YRS: >39 mL/min Normal 80 and above >32 mL/min Normal ID Date Data Source [id number] 10/21/2020 12:00:00 AM EST [facility] Name Value Range Interpretation Code Description Data Nati rce(s) Supporting Document(s) SARS-CoV2 Rapid Antigen Positive [facility] This lab was reported by [facility]. ID Date Data Source [id number] 08/10/2020 12:00:00 AM EST [facility] Name Value Range Interpretation Code Description Data Nati rce(s) Supporting Document(s) SARS coronavirus 2 Ag [facility] This lab was ordered by [facility] and reported by [facility]. ID Date Data Source [id number] 10/06/2020 09:04:00 AM EST [facility] Name Value Range Interpretation Code Description Data Nati rce(s) Supporting Document(s) SARS-CoV-2 (COVID-19) Negative [facility] This lab was ordered by [facility] and reported by [employer]. ID Date Data Source [id number] 09/01/2020 10:48:00 AM EST [facility] [address] [place] [address] PHONE: [phone] FAX: [phone] Name .................. : LORENA Doty Acct Number.................. : [id number] ROOM. ................. : TR-06 MR Number ................... : [id number] Stay type ............. : E/R Discharge Date......... ... : 08/27/20 Admit Date ......... : 08/27/20 Admit Phys .................... : MARK Goss Date of ....... : 1995 Family Phys ................... : Phone .................. : [phone] Age ................................ : 25 Film# .................. .:[id number] Sex ................................. : F Unsigned transcriptions are preliminary reports and do not represent a medical or legal document CT ABD & PELV W/O ORAL W/[place] [id number] COMPLETE:08/27/20 21:30 [id number] Reason(s): NO CONTRAST. Pending HCG. ? renal stone CT OF THE ABDOMEN AND PELVIS WITHOUT CONTRAST: INDICATION: Urinary tract infection. FINDINGS: The chest base is clear. There is normal noncontrast CT appearance of the liver, spleen, pancreas, adrenal glands and left kidney. There is mild right-sided hydronephrosis. No gallbladder wall thickening or biliary duct dilatation. The visualized bowel is normal in calib er. The appendix is not definitively visualized, but there are no right lower quadrant inflammatory changes. The bladder contains a stone that has just passed from the left ureteropelvic junction. There is an IUD in the uterus. There is a 5.7 x 5.0 cm left ovarian cyst. No acute osseous abnormality. No lymphadenopathy. IMPRESSION: 1. Mild right hydronephrosis. Recently passed stone in the bladder. No other obstructive uropathy noted. 2. 5.7 x 5.0 cm left ovarian cyst. Page 1 of 2 [facility] [address] [place] [address] PHONE: [phone] FAX: [phone] Name .................. : LORENA Doty Acct Number.................. : [id number] ROOM. ................. : TR-06 Number ................... : [id number] Stay type ............. : E/R Discharge Date......... ... : 08/27/20 Admit Date ......... : 08/27/20 Admit Phys .................... : MARK Goss Date of ....... : 1995 Family Phys ................... : Phone .................. : [phone] Age ................................ : 25 Film# .................. .:[id number] Sex ................................. : F Unsigned transcriptions are preliminary reports and do not represent a medical or legal document CT ABD & PELV W/[place] ORAL W/[place] [id number] COMPLETE:08/27/20 21:30 [id number] Reason(s): NO CONTRAST. Pending HCG. ? renal stone While performing the above CT examination, radiation dose reduction was accomplished utilizing automated exposure control, adjusting of the mA and kV based on the p atient's body size and/or the use of imperative reconstructive techniques. CT dose: 645.9 mGycm Electronically Reviewed and Signed By Theodore Leiva M.D. , 09/01/20 10:48, [place] Transcribe Initials: RILEY , Transcribe Date: 08/27/20 23:50, Dictation Date: Copy for: JO MALLOY via fax Copy for: EMERGENCY DEPT via modem Copy for: 710 MED REC DISCHARGED Page 2 of 2 Name Value Range Interpretation Code Description Data Nati rce(s) Supporting Document(s) ID Date Data Source [id number] 08/27/2020 08:58:00 PM EST [facility] 1 OrderSheet [facility] Emergency Department [address] [place] [address] Phone #: ext- [phone] 08/27/2020 20:43 Patient: BARBARA CARRILLO Sex: F : 1995 Age: 25yWEIGHT:65.7 kg (S) HEIGHT:62 inches (S) BMI:26.5ALLERGIES: No Known Drug AllergyCHIEF COMPLAINT: abdominal painDIAGNOSIS: Kidney stone, Cyst of ovaryLAB ORDERSOrder Description Priority Entered Acknowledged InitialedUrinalysis (Clean STAT 21:05 08/27/2020 21:05 Danyelle,Catch) Arnold Bassett R.N., R.N.; Verbal order per; Mayank FernandezARebeca-CCBC w Diff STAT 21:12 08/27/2020 21:22 Mayank Bassett R.N. P.A.-C;CMP STAT 21:12 08/27/2020 21:22 Mayank Bassett R.N. P.A.-C;Lipase STAT 21:12 08/27/2020 21:22 Mayank Bassett R.N. P.A.-C;Beta-HCG, Qual STAT 21:12 08/27/2020 21:22 Danyelle,Serum Mayank MacielN. P.A.- C;Lactic Acid STAT 21:12 08/27/2020 21:22 Mayank Bassett R.N. P.A.-C;Culture, Urine STAT 21:12 08/27/2020 21:17 Danyelle,(Urine, Clean Mayank Vasquez.NRebecaCatch) P.A.-C;PT/PTT STAT 21:12 08/27/2020 21:22 Mayank BassettN. P.A.-C;DIAGNOSTIC STUDY ORDERSOrder Description Priority Entered Acknowledged InitialedCT ABD PEL W/O STAT 21:30 08/27/2020 21:31 Danyelle,Oral W/O IV Mayank Barrett R.N. 2 OrderSheet [facility] Emergency Department [address] [place] [address] Phone #: ext- [phone] 08/27/2020 20:43 Patient: BARBARA CARRILLO Sex: F : 1995 Age: 25yContrast P.A.-C;(Oxygen?(No))(IV?(No)) Reason for Study: NO CONTRAST. Pending HCG. ? renal stoneMEDICATION/IV/DRIP/FLUID ORDERSOrder Description Priority Entered Acknowledged InitialedNS IV : Bolus 500 21:12 08/27/2020 21:32 Sorbero,mL, then 100 mL/hr Mayank MacielN. P.A.-C;Zofran IVP 4 mg 21:12 08/27/2020 21:32 Mayank Bassett.N. P.A.-C;Tylenol 1 g PO X1 21:12 08/27/2020 21:32 Sorbero,dose: 1000 mg Mayank Barrett R.N.(NOW x1) P.A.- C;Benadryl 25 mg IVP 21:12 08/27/2020 21:33 Sorbero,X1 dose: 25 mg Mayank Barrett R.N.(NOW x1) P.A.-C;Rocephin 21:58 08/27/2020 22:22 Sorbero,(1gm/50mL) IVPB Mayank MacielNRebeca1000 mg with P.A.-C;Dextrose 50 mlspike bag (D5W)Toradol IVP 15 mg 23:02 08/27/2020 23:08 Mayank Brush R.N. P.A.-C;GENERAL ORDERSOrder Description Priority Entered Acknowledged InitialedNPO 21:12 08/27/2020 21:16 Mayank Bassett R.N. P.A.-C;Saline Lock 21:12 08/27/2020 21:22 Mayank Bassett R.N. P.A.- C;[Electronically signed by Esthela Brush R.N. (23:20 08/27/2020)][Electronically signed by Mayank Paredes P.A.-C (00:13 08/28/2020)][Electronically locked by Esthela Brush R.N. (23:20 08/27/2020)] Name Value Range Interpretation Code Description Data Nati rce(s) Supporting Document(s) ID Date Data Source [id number] 08/27/2020 08:58:00 PM EST [facility] 1 Medication Reconciliation Report [facility] Emergency Department [address] [place] [address] Phone #: ext- [phone] 08/27/2020 20:43 Patient: BARBARA CARRILLO Sex: F : 1995 Age: 25yWeight: 65.7 kgHeight/Length: 62 in.BMI: 26.5ALLERGIES: No Known Drug AllergyThe patient's Home Medications are listed below:CONTINUE TAKING THE FOLLOWING MEDICATIONS: IUD OralThe source(s) of the original Home Medication information:Not obtained.The following Medications were given to the patient in the Emergency Department:NS [IV] IV Fluids bolus 500 mL over 30 minute(s), then 100 mL/hr, administered: 08/27/2020 9:32:00 PMTylenol [PO] PO 1000 mg, administered: 08/27/2020 9:22:00 PMZofran [IVP] IVP 4 mg, administered: 08/27/2020 9:32:00 PMBenadryl [IVP] IVP 25 mg, administered: 08/27/2020 9:33:00 PMROCEPHIN (1GM/50ML) [IVPB] IVPB bolus 0, then 1 gm 100 mL/ hr, administered: 08/27/2020 10:22:00PMToradol [IVP] IVP 15 mg, administered: 08/27/2020 11:08:00 PMThe following Medications were prescribed to the patient:[place] 5 mg-325 mg tablet Take 1 tablet three times a day for 3 days -- Dispense 9 tablet. Refills: 0.Substitution permitted.Pharmacy - [facility] [phone] ; [place] [address]. . 2 Medication Reconciliation Report [facility] Emergency Department [address] [place], [place] [address] Phone #: ext- [phone] 08/27/2020 20:43 Patient: BARBARA CARRILLO Sex: F : 1995 Age: 25ynaproxen 500 mg tablet Take 1 tablet twice a day for 7 days -- Dispense 14 tablet. Refills: 0.Substitution permitted.Pharmacy - [facility] [phone] ; [place] [address]. .Flomax 0.4 mg capsule Take 1 capsule once a day for 14 days -- To help with expulsion of stone.recommend to take in the AM. Dispense 14 capsule. Refills: 0. Substitution permitted.Pharmacy - [facility] [id number] ; [place] [address]. . -- Mayank Paredes P.A.-C Name Value Range Interpretation Code Description Data Nati rce(s) Supporting Document(s) ID Date Data Source [id number] 08/27/2020 08:58:00 PM EST [facility] 1 Medication Administration Record [facility] Emergency Department [address] [place] [address] Phone #: ext- [phone] 08/27/2020 20:43 Patient: BARBARA CARRILLO Sex: F : 1995 Age: 25yWeight: 65.7 kgHeight/Length: 62 inBMI: 26.5ALLERGIES: No Known Drug Allergy Date/Time Medication Administered Medication OrderedStart NS [IV] NS IV : Bolus 500 mL, then 05705:32 08/27/2020 Dose: IV Fluids mL/hrSArnold larry, R.N. Rate: 100 mL/hr over 5 hour(s)---- Bolus: 500 mL over 30 minute(s)Stop Dispensed: 1000 mL bag23:09 08/27/2020 Site: #1 left Esthela Mccloud R.N.Given ZOFRAN [IVP] (ONDANSETRON HCL) Zofran IVP 4 mg21:32 1 10/27/2019 Dose: 4 mg IVPSArnold larry R.N. Site: #1 left ACGiven TYLENOL [PO] (APAP) Tylenol 1 g PO X1 dose: 1000 mg21:22 08/27/2020 Dose: 1000 mg Tablets PO (NOW x1)Arnold Bassett R.N.Given BENADRYL [IVP] (DIPHENHYDRAMINE Benadryl 25 mg IVP X1 dose: 2521:33 08/27/2020 HCL) mg (NOW x1)Arnold Bassett R.N. Dose: 25 mg IVP Site: #1 left ACStart ROCEPHIN (1GM/50ML) [IVPB] Rocephin (1gm/50mL) IVPB 049171:22 08/27/2020 (CEFTRIAXONE SODIUM) mg with Dextrose 50 ml spike bagSArnold larry, R.N. Dose: 1 gm IVPB (D5W)---- Rate: 100 mL/hr over 30 minute(s)Stop Dispensed: 50 mL bag22:55 08/27/2020 Site: #1 left Esthela Mccloud R.NRebecaGiven TORADOL [IVP] ( KETOROLAC Toradol IVP 15 mg23:08 08/27/2020 TROMETHAMINE)Esthela Brush R.N. Dose: 15 mg IVP Site: #1 left AC Name Value Range Interpretation Code Description Data Nati rce(s) Supporting Document(s) ID Date Data Source [id number] 08/27/2020 08:58:00 PM EST [facility] 1 General Instructions [facility] Emergency Department [address] [place] [address] Phone #: ext- [phone] 08/27/2020 20:43 Patient: BARBARA CARRILLO Sex: F : 1995 Age: 25yRight nephrolithiasis.Single simple left ovarian cyst.INSTRUCTIONSTake Tylenol (Acetaminophen) or Motrin (Ibuprofen) as needed for fever control. Take medicationaccording to label instructions.Drink plenty of fluids. No dietary restrictions.Warnings: Further evaluation is necess clarisa.SEDATIVE MEDICATION: You were given sedative medication during your visit. Do not drive or operatedangerous machinery.CONTROLLED SUBSTANCE WARNINGS.GENERAL WARNINGS: Return or contact your physician immediately if your condition worsens orchanges unexpectedly, if not improving as expected, or if other problems arise.Your Current Medications: Your current home medications have been reviewed.CONTINUE TAKING THE FOLLOWING MEDICATIONS:IUD*. Oral.Prescription monitor program consulted by me. Prescription does not exceed state maximum supply ofmedicationsPrescription Medications:[place] 5 mg-325 mg tablet Take 1 tablet three times a day for 3 days -- Dispense 9 tablet. Refills: 0.Substitution permitted.Pharmacy - [facility] [phone] ; [place] [address]. .naproxen 500 mg tablet Take 1 tablet twice a day for 7 days -- Dispense 14 tablet. Refills: 0.Substitution permitted.Pharmacy - [facility] [phone] ; [place] [address]. FaxNumber: [phone].Flomax 0.4 mg capsule Take 1 capsule once a day for 14 days -- To help with expulsion of stone.recommend to take in the AM. Dispense 14 capsule. Refills: 0. Substitution permitted. 2 General Instructions [facility] Emergency Department [address] [place] [address] Phone #: ext- [phone] 08/27/2020 20:43 Patient: BARBARA CARRILLO Sex: F : 1995 Age: 25yPharmacy - [facility] [id number] ; [place] [address]. .Follow-up:Return to the emergency department as needed. Follow up with your healthcare provider in about twodays if not better. Call for an appointment.Understanding of the discharge instructions verbalized by patient.Follow-up with: Johny Bills M.D., Urology, , [address] [place] [address], Critical access hospital Follow up. Reason for referral: evaluation and treatment. ADDITIONAL INFORMATIONKidney Stone with PainThe sharp cramping pain on either side of your lower back and nausea/vomiting that you have arebecause of a small stone that has formed in the kidney. It is now passing down a narrow tube (ureter)on its way to your bladder. Once the stone reaches your bladder, the pain will often stop. But it maycome back as the stone continues to pass out of the bladder and through the urethra. The stone maypass in your urine stream in one piece. The size may be 1/16 inch to 1/4 inch (1 mm to 6 mm). Or, the 3 General Instructions [facility] Emergency Department [address] [place] [address] Phone #: ext- [phone] 08/27/2020 20:43 Patient: BARBARA CARRILLO Sex: F : 1995 Age: 25ystone may break up into venita fragments that you may not even notice.Once you have had a kidney stone, you are at risk of getting another one in the future. There are 4types of kidney stones. Eighty percent are calcium stones--mostly calcium oxalate but also somewith calcium phosphate. The other 3 types include uric acid stones, struvite stones (from a precedinginfection), and rarely, cystine stones.Most stones will pass on their own, but may take from a few hours to a few days. Sometimes thestone is too large to pass by itself. In that case, the healthcare provider will need to use other ways toremove the stone. These techniques include: Lithotripsy. This uses ultrasound waves to break up the stone. Ureteroscopy. This pushes a basket-like instrument through the urethra and bladder and into the ureter to pull out the stone. Various types of direct surgery through the skinHome careThe following are general care guidelines: Drink plenty of fluids. This means at least 12, 8-ounce glasses of fluid--mostly water--a day. Each time you urinate, do so in a jar. Pour the urine from the jar through the strainer and into the toilet. Continue doing this until 24 hours after your pain stops. By then, if there was a kidney stone, it should pass from your bladder. Some stones dissolve into sand- like particles and pass right through the strainer. In that case, you won't ever see a stone. Save any stone that you find in the strainer and bring it to your healthcare provider to look at. It may be possible to stop certain types of stones from forming. For this reason, it is important to know what kind of stone you have. Try to stay as active as possible. This will help the stone pass. Don't stay in bed unless your pain keeps you from getting up. You may notice a red, pink, or brown color to your urine. This is normal while passing a kidney stone. If you develop pain, you may take ibuprofen or naproxen for pain, unless another medicine was prescribed. If you have chronic liver or kidney disease, talk with your healthcare provider before taking these medicines. Also talk with your provider if you've had a stomach ulcer or GI bleeding.Preventing stonesEach year for the next 5 to 7 years, you are at risk that a new stone will form. Your risk is a 50%chance over this time period. The risk is higher if you have a family history of kidney stones or have 4 General Instructions [facility] Emergency Department [address] [place] [address] Phone #: ext- [phone] 08/27/2020 20:43 Patient: BARBARA CARRILLO Sex: F : 1995 Age: 25ycertain chronic illnesses like hypertension, obesity, or diabetes. But you can make changes to yourlifestyle and diet that can lower your risk for another stone.Most kidney stones are made of calcium. The following is advice for preventing another calciumstone. If you don't know the type of stone you have, follow this advice until the cause of your stone isfound.Things that help: The most important thing you can do is to drink plenty of fluids each day. See home care above. Eat foods that contain phytates. These include wheat, rice, rye, barley, and beans. Phytates are substances that may lower your risk for any type of stone to form. Eat more fruits and vegetables. Choose those that are high in potassium. Eat foods high in natural citrate like fruit and low-sugar fruit juices. Having too little calcium in your diet can put you at risk for calcium kidney stones. Eat a normal amount of calcium in your diet and talk with your healthcare provider if you are taking calcium supplements. Cutting back on your calcium intake may raise your risk. New research shows that eating calcium-rich and oxalate-rich foods together lowers your risk for stones by binding the minerals in the stomach and intestines before they can reach the kidneys. Limit salt intake to 2 grams (1 teaspoon) per day. Use limited amounts when cooking, and don't add salt at the table. Processed and canned foods are usually high in salt. Spinach, rhubarb, peanuts, cashews, almonds, grapefruit, and grapefruit juice are all hi gh oxalate foods. You should limit how much of these you eat. Or eat them with calcium-rich foods. These include dairy products, dark leafy greens, soy products, and calcium-enriched foods. Reducing the amount of animal meat and high protein foods in your diet may lower your risk for uric acid stones. Avoid excess sugar (sucrose) and fructose (sweetener in many soft drinks) in your diet. If you take vitamin C as a supplement, don't take more than 1,000 mg a day. A dietitian or your healthcare provider can give you information about changes in your diet that will help prevent more kidney stones from forming.Follow-up careFollow up with your healthcare provider, or as advised, if the pain lasts more than 48 hours. Talk withyour provider about urine and blood tests to find out the cause of your stone. If you had an X-ray, CT 5 General Instructions [facility] Emergency Department [address] [place] [address] Phone #: yri- [phone] 08/27/2020 20:43 Patient: BARBARA CARRILLO Sex: F : 1995 Age: 25yscan, or other diagnostic test, you will be told of any new findings that may affect your care.Call [phone] if you have any of these: Weakness, dizziness, or faintingWhen to seek medical adviceCall your healthcare provider right away if any of these occur: Pain that is not controlled by the medicine given Repeated vomiting or unable to keep down fluids Fever of 100.4F (38C) or higher, or as directed by your healthcare provider Passage of solid red or brown urine (can't see through it) or urine with lots of blood clots Foul-smelling or cloudy urine Unable to pass urine for 8 hours and increasing bladder pressure [id number] [employer]. [address] [place] [address], [place] [address]. All rights reserved. This information is not intended as asubstitute for professional medical care. Always follow your healthcare professional's instructions.Blood in the Urine 6 General Instructions [facility] Emergency Department [address] [place] [address] Phone #: ext- [phone] 08/27/2020 20:43 Patient: BARBARA CARRILLO Sex: F : 1995 Age: 25yBlood in the urine (hematuria) has many possible causes. If it occurs after an injury (such as a caraccident or fall), it is most often a sign of bruising to the kidney or bladder. Common causes of bloodin the urine include urinary tract infections, kidney stones, inflammation, tumors, or certain otherdiseases of the kidney or bladder. Menstruation can cause blood to appear in the urine sample,although it is not coming from the urinary tract.If only a trace amount of blood is present, it will show up on the urine test, even though the urine maybe yellow and not pink or red. This may occur with any of the above conditions, as well as heavyexercise or high fever. In this case, your do ctor may want to repeat the urine test on another day. Thiswill show if the blood is still present. If it is, then other tests can be done to find out the cause.Home careFollow these home care guidelines: If your urine does not appear bloody (pink, brown or red) then you do not need to restrict your activity in any way. If you can see blood in your urine, rest and avoid heavy exertion until your next exam. Do not use aspirin, blood thinners, or anti- platelet or anti-inflammatory medicines. These include ibuprofen and naproxen. These thin the blood and may increase bleeding.Follow-up careFollow up with your healthcare provider, or as advised. If you were injured and had blood in your 7 General Instructions [facility] Emergency Department [address] [place], [place] [id number] Phone #: ext- [phone] 08/27/2020 20:43 Patient: BARBARA CARRILLO Sex: F : 1995 Age: 25yurine, you should have a repeat urine test in 1 to 2 d ays. Contact your doctor for this test.A radiologist will review any X-rays that were taken. You will be told of any new findings that mayaffect your care.When to seek medical adviceCall your healthcare provider right away if any of these occur: Bright red blood or blood clots in the urine (if you did not have this before) Weakness, dizziness or fainting New groin, abdominal, or back pain Fever of 100.4F (38C) or higher, or as directed by your healthcare provider Repeated vomiting Bleeding from the nose or gums or easy bruising [id number] [employer] [place] [address]. All rights reserved. This information is not intended as asubstitute for professional medical care. Always follow your healthcare professional's instructions.Ovarian CystsThe ovaries are two small organs located on each side of a woman's uterus (womb). They are part ofthe female reproductive system. Ovarian cysts are sacs filled with fluid or tissue that for m on or insidethe ovaries. 8 General Instructions [facility] Emergency Department [address] [place] [address] Phone #: ext- [phone] 08/27/2020 20:43 Patient: BARBARA CARRILLO Sex: F : 1995 Age: 25yOvarian cysts are common in women, especially during childbearing years. There are different typesof cysts. Most are harmless (b enign) and go away on their own. They often cause no symptoms. Ifsymptoms do occur, they can include mild pain or pressure in the lower belly (abdomen).Cysts that are large or break (rupture) may cause more severe pain and symptoms. In these cases,you may need hospital care or treatment such as surgery. You may need more extensive treatment ifa cyst causes an ovary to twist (called torsion) or if your doctor suspects your cyst is cancerous. Keepin mind that most cysts are not cancerous, however.General care To help relieve pain, your healthcare provider may recommend using uhem-yvl-cjdqsro pain medicine. If needed, your provide may prescribe stronger pain medicine. Depending on the type of cyst you have, your healthcare provider may advise taking control pills. These help shrink cysts in certain cases. They may also help prevent new cysts from forming. Be sure to take these medicines as directed if they are prescribed. Your healthcare provider may advise you to watch your symptoms over time to see if they go away or worsen. Regular ultrasound tests may also be advised. These can help check if a cyst goes away or grows in size.Follow-up careFollow up with your healthcare provider, or as advised.When to seek medical adviceCall your healthcare provider right away if any of these occur: Pain worsens or fails to get better with home treatment Fever of 100.4F (38C) or higher (or other fever amount directed by your healthcare provider) Nausea and vomiting Weakness, dizziness, or fainting Abnormal vaginal bleeding [id number] [employer]. [address] [place] [address]. All rights reserved. This information is not intended as asubstitute for professional medical care. Always follow your healthcare professional's instructions. You have been given the following additional information: 9 General Instructions [facility] Emergency Department [address] [place] [address] Phone #: ext- [phone] 08/27/2020 20:43 Patient: BARBARA CARRILLO Sex: F : 1995 Age: 25yKidney Stone w/ ColicHematuriaOvarian Cyst(Electronically signed by Mayank Paredes P.A.-C 08/28/2020 00:13) Name Value Range Interpretation Code Description Data Nati rce(s) Supporting Document(s) ID Date Data Source [id number] 08/27/2020 08:58:00 PM EST [facility] 1 Clinical Report - Nurses [facility] Emergency Department [address] [place] [address] Phone #: ext- [phone] 08/27/2020 20:43 Patient: BARBARA CARRILLO Sex: F : 1995 Age: 25yTRIAGEArrived by private vehicle. Historian: patient.Acuity: LEVEL 4.Chief Complaint: PELVIC PAIN and PAINFUL URINATION and FREQUENCY.Alert. No acute distress.Onset. (10 days). ( Patient states she [facility] having [facility] symptoms about [facility] Pt states she finished the macrobid 2 days ago but is still experiencingUTI symptoms. Pt reports pelvic pain. frequent urination, and diminished production. PT states hersymptoms have been getting worse. Pt denies, n/v/d, chills or fevers. Pt also reports some abdominalpain.). --20:50 08/27/20 Esthela Brush R.N.20:44 08/27/20. BP: 176/92. MAP: 120. HR: 78. RR: 18. O2 saturation: 100%. Temp: 97.7 F. Pain levelnow: 04/11. --20:50 08/27/20 Esthela Brush R.N.Weight: 65.7 kg stated. Height/Length: 62 inches Per Patient. BMI: 26.5. --20:44 08/27/20 Esthela Brush R.N.MedicationsIUD. --20:48 08/27/20 Esthela Brush R.N. Oral. --20:48 08/27/20 Esthela Brush R.N.AllergiesNo Known Drug Allergy. 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 --20:49 08/27/20 Esthela Brush R.N.ADDITIONAL SURGERIES:.Dnc. --20:49 08/27/20 Esthela Brush R.N.HistoryPAST MEDICAL HX: Immunizations: up-to-date. Last normal menstrual period was 3 weeks ago- Startednew , mirena. Uses an intrauterine device.SOCIAL HX: Never smoker. Occasional alcohol use. No drug use. The patient was offered HIV testingbut declined. Patient education was provided. The [facility] ient was offered hepatitis C testing but declined.Patient education was provided. ( COVID screen negative). The patient has not traveled outside the.[place].Infectious disease exposure: No infectious disease exposure. Patient is not a known carrier of tuberculosis, 2 Clinical Report - Nurses [facility] Emergency Department [address] [place] [address] Phone #: ext- [phone] 08/27/2020 20:43 Patient: BARBARA CARRILLO Sex: F : 1995 Age: 25y hepatitis, HIV, MRSA or VRE. Patient is not a known carrier of CRE. SELF HARM ASSESSMENT: Self harm assessment was performed. The patient answered "no" to the question(s) "Have you recently felt down, depressed, or hopeless?", "Do you have thoughts of harming or killing yourself?", "Do you have a plan for harming or killing yourself?" and "Have you recently had thoughts about harming or killing others?". ABUSE ASSESSMENT: Abuse assessment. The patient had positive responses to the question(s) "Do you feel safe in your home?", "Are you afraid t o go home?" and "Has anyone hurt you or threatened to hurt you?". Abuse denied. NUTRITIONAL RISK ASSESSMENT: The nutritional risk assessment revealed no deficiencies. FUNCTIONAL ASSESSMENT: Functional assessment: no impairments noted. LEARNING NEEDS ASSESSMENT: The learning needs assessment revealed no barriers. FALL RISK ASSESSMENT: Fall risk assessment completed. No risk factors identified. SKIN INTEGRITY ASSESSMENT: Skin integrity risk assessment completed. No skin integrity risk identified. --20:50 08/27/20 Esthela Brush R.N. Interventions Identification band on patient. To treatment room. --20:50 08/27/20 Esthela Brush R.N.PHYSICAL ASSESSMENTAmbulatory to room.GENERAL / NEURO / PSYCH: Alert. Oriented X 4. Appears in no acute distress. Appears in pain.HEENT: Mucous membranes are pink.RESPIRATORY: Respirations not labored. Breath sounds within normal limits.CVS: Normal heart rate and rhythm. Capillary refill less than 2 seconds.GI / : Abdomen soft and nontender. Bowel sounds within normal limits. Pain with urination. Thepatient has had frequency of urination. Urgency of urination. No vaginal bleeding. No vaginaldischarge. ( pelvic pain, with urinary frequency).SKIN: Skin is warm and dry. --20:51 08/27/20 Esthela Brush R.N.NURSING PROGRESS NOTESReassurance given. Two patient identifiers checked. Call light placed in reach. Side rails up x 2. Bedplaced in lowest position. Brakes of bed on. --20:50 08/27/20 Esthela Brush R.NRebeca 21:00 08/27/20. Patient ID band checked for patient name and birthdate: patient confirmed. Instructions provided to collect clean catch urine and patient verbalized understanding. Clean catch urine collected with return of yellow-colored clear urine; odor is normal; sample sent to lab for urinalysis. Specimen labeled in the presence of the patient. --21:06 08/27/20 Arnold Bassett R.N. 3 Clinical Report - Nurses [facility] Emergency Department [address] [place] [address] Phone #: ext- [phone] 08/27/2020 20:43 Patient: BARBARA CARRILLO Sex: F : 1995 Age: 25y21:22 08/27/2020 Tylenol (APAP) PO Tablets 1000 mg given. Allergies verified and confirmed 5 rights.Information reviewed with patient including reason for taking this medication, signs of allergic reaction andprecautions. Verbalizes un derstanding. --:08/27/20 Arnold Bassett R.N.21:08/27/2020 Site #1 started via IV in the left antecubital space with an 20g angiocath, with aseptictechnique and good blood return; one attempt. Blood drawn: rainbow set. Labeled in the presence of thepatient and sent to the lab. Saline lock flushed with 10 mL saline. --21:08/27/20 Arnold Bassett R.N.21:08/27/2020 Started bag #1 1000 mL IV Fluids NS; bolus of 500 mL over 30 minute(s) then at 100mL/hr over 5 hour(s) via site #1 via IV pump. Allergies verified and confirmed 5 rights. IV patencyestablished. IV site checked: no pain, redness, or swelling. IV flushed thoroughly pre- and post-medicationadministration. Information reviewed with patient including reason for taking this medication, signs ofallergic reaction and precautions. Verbalizes understanding. --:08/27/20 Arnold Bassett R.N.21:08/27/2020 Zofran (Ondansetron HCl) IVP 4 mg given over 2 minute(s) via site #1. Allergies verifiedand confirmed 5 rights. IV patency established. IV site checked: no pain, redness, or swelling. IV flushedthoroughly pre- and post-medication administration. IVP given by RN. Information reviewed with patientincluding reason for taking this medication, signs of allergic reaction and precautions. Verbalizesunderstanding. --21:32 08/27/20 Arnold Bassett R.N.21:33 08/27/2020 Benadryl (diphenhydrAMINE HCl) IVP 25 mg given over 2 minute(s) via site #1. Allergiesverified and confirmed 5 rights. IV patency established. IV site checked: no pain, redness, or swelling. IVflushed thoroughly pre- and post-medication administration. IVP given by RN. Information reviewed withpatient including reason for taking this medication, signs of allergic reaction, precautions and sedativewarning. Verbalizes understanding. --21:33 08/27/20 Arnold Bassett R.N.21:59 08/27/20. Reassurance given. Reassessment acuity: LEVEL 3. Reassessment after medicationadministered. No adverse reaction. Pain still present but improving. Nausea gone now. She reports nocomplaints, she is calm, resting quietly and sleeping and she has had no adverse reaction. Overall patientstatus is improved- she states feels better. Two patient identifiers checked. Call light placed in reach.Side rails up x 2. Bed placed in lowest position. Brakes of bed on. --22:00 08/27/20 Arnold Bassett R.NRebeca22:12 08/27/20. Patient transported to [place] by wheelchair with nurse technician. --22:12 08/27/20 Arnold Bassett R.N.22:22 08/27/2020 Started 1 gm of ROCEPHIN (1GM/50ML) (cefTRIAXone Sodium) IVPB in bag #1 50 mL;at 100 mL/hr over 30 minute(s) via site #1. via IV pump. Allergies verified and confirmed 5 rights. IVpatency established. IV site checked: no pain, redness, or swelling. IV flushed thoroughly pre- andpost-medication administration. Information reviewed with patient including reason for taking thismedication, signs of allergic reaction and precautions. Verbalizes understanding. --22:22 08/27/20Arnold larry R.N. 4 Clinical Report - Nurses [facility] Emergency Department [address] [place] [address] Phone #: ext- [phone] 08/27/2020 20:43 [id number] Sex: [facility] : 1995 Age: 25y 22:55 08/27/2020 ROCEPHIN (1GM/50ML) IVPB via IV site #1 Discontinued: completed. Total amount infused: 50 mL. IV patency established. IV site checked: no pain, redness, or swelling. IV flushed thoroughly. --23:08/27/20 Esthela Brush R.N. 23:08/27/2020 Toradol (Ketorolac Tromethamine) IVP 15 mg given via site #1. Allergies verified and confirmed 5 rights. IV patency established. IV site checked: no pain, redness, or swelling. IV flushed thoroughly pre- and post-medication administration. IVP given by RN. Information reviewed with patient. Verbalizes understanding. --23:08/27/20 Esthela Brush R.N. 23:08/27/2020 IV Fluids NS via IV site #1 Discontinued: discontinued upon discharge. Total amount infused: 700 mL. IV patency established. IV site checked: no pain, redness, or swelling. IV flushed thoroughly. --23:08/27/20 Esthela Brush R.N.DISPOSITION / DISCHARGE 23:08/27/2020 Site #1 removed upon discharge. Bandaid applied. --23:08/27/20 Esthela Brush R.N. No learning barriers present. Discharge instructions provided and reviewed with the patient. Reviewed warnings. Reviewed medication(s) side effects, precautions, dosing and course information. Prescription(s) given to the patient and sent electronically to pharmacy. Medication(s) for home use given to the patient per protocol. Treatments reviewe d. Reviewed referral to a urologist. Patient verbalized understanding. Written instructions provided in Belgian. The patient was discharged home. She left ambulatory and via private vehicle. Patient driving. --23:20 08/27/20 Esthela Brush R.N. 23:19 08/27/20. BP: 132/84. MAP: 100. HR: 72. RR: 16. O2 saturation: 100% on room air. Temp: 98.3 F. Pain level now: 11/12. --23:20 08/27/20 Esthela Brush R.N.Locked/Released at 08/27/2020 23:20 by Esthela Brush R.N. Name Value Range Interpretation Code Description Data Nati rce(s) Supporting Document(s) ID Date Data Source [id number] 08/27/2020 08:58:00 PM [facility] 1 Clinical Report - Physicians/Mid Levels [facility] Emergency Department [address] [place] [address] Phone #: ext- [phone] 08/27/2020 20:43 Patient: BARBARA CARRILLO Sex: F : 1995 Age: 25y Time Seen: 20:54 08/27/2020; initial patient contact, initial documentation. Arrived- By private vehicle. Historian- patient. Disposition decision: 23:01 08/27/2020.HISTORY OF PRESENT ILLNESS Chief Complaint: ABDOMINAL PAIN. It is described as "pain", sharp, stabbing and cramping and it is described as located in the right lower quadrant and left lower quadrant and in the lower abdomen. This started about 10 days ago and is still present. No nausea, loss of appetite, vomiting or diarrhea. (Patient states she started having UTI symptoms about 10 days ago and was seen at the [place] and they gave her macrobid. Pt states she finished the macrobid 2 days ago but is still experiencing UTI symptoms. Pt reports pelvic pain. frequent urination, and diminished production. PT states her symptoms have been getting worse. Pt denies, n/v/d, chills or fevers. Pt also reports some abdominal pain.). Similar symptoms previously. None. Recent medical care: The patient was seen recently at another facility in a clinic.REVIEW OF SYSTEMSNo constipation, black stools, hematemesis, fever or headache. No sore throat, blurred vision, chest pain,difficulty breathing or cough. No joint pain, skin rash, chills or back pain. The patient has had difficultywith urination, and pain on urination but not had weight loss. The patient has had urinary frequency. Lastbowel movement: yesterday. All other systems reviewed and are negative.PAST HISTORYSee nurses notes. Problems: Lymphatoid papulosis. Additional Surgeries: . Dnc. Medications: Oral. IUD. Allergies: No Known Drug Allergy.SOCIAL HISTORYNever smoker. Occasional alcohol use. 2 Clinical Report - Physicians/Mid Levels [facility] Emergency Department [address] [place] [address] Phone #: ext- [phone] 08/27/2020 20:43 Patient: BARBARA CARRILLO Sex: F : 1995 Age: 25yADDITIONAL NOTESThe nursing notes have been reviewed.PHYSICAL EXAMVital Signs: 08/27/2020 20:44 BP: 176/92. MAP: 120. HR: 78. RR: 18. O2 saturation: 100%. Temp: 97.7F. Pain level now: 04/11. Have been reviewed. Oxygen saturation normal.Appearance: Alert. Oriented X3. No acute distress.ENT: Voice normal.CVS: Normal heart rhythm and rate. No JVD present. Pulses normal. Capillary refill normal. Strongperipheral pulses. Heart sounds normal. Pulses: right radial 2+; left radial 2+; right dorsalis pedis 2+; leftdorsalis pedis 2+; right posterior tibial 2+; left posterior tibial 2+.Respiratory: Chest normal on inspection. No respiratory distress. Unlabored respirations. Lungs clear.Good chest movement. Breath sounds normal and equal.Abdomen: Normal inspection. Soft. Tenderness in the suprapubic area. Bowel sounds normal. Nodistention.Back: Moderate CVA tenderness on the right and left.Skin: Skin warm and dry.Extremities: Extremities exhibit normal ROM. No lower extremity edema. No calf tenderness. No lowerextremity edema.Neuro: Awake. Alert. Mood/affect livan l. Speech normal. No motor deficit. No sensory deficit.Psych: Cognition normal. Thought process and content normal. Insight and judgement normal.LABS, X-RAYS, AND EKGCT Abdomen - Pelvis: Cali porras Neal - 08/27/2020 10:46:12 PMMild R hydro. Recently passed stone in the bladder. No other obs uropathy. 5.7 x 5.0 cm L ov cyst. The study was interpreted by the radiologist. Laboratory Tests: CBC w Diff: (JONATHON: 08/27/2020 21:22) ( MsgRcvd 08/27/2020 21:32) Final results Test Result Flag Units (Reference) CBC W/AUTOMATED DIFF COMPLETE BLOOD COUNT WBC 6.0 10/uL (4.2 - 11.0) RBC 4.57 10/uL (4.20 - 5.40) HEMOGLOBIN 13.4 g/dL (12.0 - 16.0) HEMATOCRIT 38.8 % (37.0 - 47.0) MCV 84.9 fL (81.0 - 101) MCH 29.3 pg (27.0 - 34.0) MCHC 34.5 g/dL (31.0 - 36.0) RDW 12.8 % (11.5 - 14.5) PLATELETS 293 10/uL (150 - 450) MPV 10.2 fL (7.4 - 10.4) NEUT 46.1 % (37.0 - 80.0) LYMPH 39.7 % (25.0 - 40.0) MONO 11.1 H % (3.0 - 8.0) EOS 2.0 % (0.0 - 7.0) BASO 0.8 % (0.0 - 2.5) 3 Clinical Report - Physicians/Mid Levels [facility] Emergency Department [address] [place], [place] [id number] Phone #: ext- [phone] 08/27/2020 20:43 Patient: BARBARA CARRILLO Sex: F : 1995 Age: 25y %IG 0.3 H % (0.0 - 0.0) %NRBC 0.0 % (0.0 - 0.0) #NEUT 2.78 10/uL (2.00 - 6.90) #LYMPH 2.40 10/uL (0.60 - 3.40) #MONO 0.67 10/uL (0.00 - 0.90) #EOS 0.12 10/uL (0.00 - 0.70) #BASO 0.05 10/uL (0.00 - 0.20) #IG 0.02 10/uL (0.00 - 0.10) #NRBC 0.00 10/uL (0.00 - 0.00) MANUAL DIFF NOT INDICATED RBC MORPH NOT INDICATEDCMP: (JONATHON: 08/27/2020 21:22) ( MsgRcvd 08/27/2020 21:52) Final results Test Result Flag Units (Reference) COMPREHENSIVE METABOLIC PANEL COMPREHENSIVE METABOLIC PANEL SODIUM 138 mEq/L (134 - 153) POTASSIUM 3.8 mEq/L (3.6 - 5.0) CHLORIDE 107 mEq/L (98 - 107) CO2 26 MEQ/L (22 - 30) GLUCOSE 95 MG/DL (65 - 110) BUN 12 MG/DL (7 - 21) CREATININE 0.5 L MG/DL (0.7 - 1.5) BUN/CREAT 24 (8 - 27) TOTAL PROTEIN 6.7 G/DL (6.3 - 8.2) ALBUMIN 4.0 G/DL (3.9 - 5.0) GLOBULIN 2.7 GM/DL (2.4 - 3.2) A/G RATIO 1.5 (0.8 - 2.0) CALCIUM 9.0 MG/DL (8.4 - 10.2) TOTAL BILI <0.7 MG/DL (0.2 - 1.3) ALKALINE PHOS 93 U/L (38 - 126) SGOT/AST 18 U/L (5 - 40) SGPT/ALT 21 U/L (7 - 56) ANION GAP 5.0 L mmol/L (8.0 - 16.0) AGE 25 yrs NON-AA GFR >60 mL/min AFR AMER GFR >60 mL/min Male GFR Interprentation 20-49 yrs >60 mL/min [id number] yrs >56 mL/min Normal 60-69 yrs >49 mL/min Normal 70-79yrs>42 mL/min Normal 80 and above >35 mL/min Normal Female GFRInterpretation 20-39 yrs >60 mL/min Normal 40-49 yrs >58 mL/minNormal 50-59 yrs >51 mL/min Normal 60-69 yrs >45 mL/min [id number] yrs >39 mL/min Normal 80 and above >32 mL/min NormalLipase: (JONATHON: 08/27/2020 21:22) ( MsgRcvd 08/27/2020 21:52) Final results Test Result Flag Units (Reference) LIPASE 29 U/L (13 - 60)Beta-HCG, Qual Serum: (JONATHON: 08/27/2020 21:22) ( MsgRcvd 08/27/2020 21:50) Final results Test Result Flag Units (Reference) HCG SERUM QUAL NEGATIVE (NORMAL: NEGAT HCG SERUM QL REENTER NEGATIVE (NORMAL: NEGAT { KIT LOT # [id number] ){ KIT EXP DATE07/08/21 ){ PROCEDURAL CONTROL VALID) 4 Clinical Report - Physicians/Mid Levels [facility] Emergency Department [address] [place] [address] Phone #: ext- [phone] 08/27/2020 20:43 Patient: BARBARA CARRILLO [facility]#: [id number] Sex: F : 1995 Age: 25y Lactic Acid: (JONATHON: 08/27/2020 21:22) ( [facility] 08/27/2020 21:31) Final results Test Result Flag Units (Reference) LACTIC ACID 0.9 MMOL/L (0.2 - 2.2) PT/PTT: (JONATHON: 08/27/2020 21:22) ( MsgRcvd 08/27/2020 21:38) Final results Test Result Flag Units (Reference) PROTIME 12.7 SECONDS (11.0 - 15.5) INR 0.91 L (0.93 - 1.23) PTT 25.8 SECONDS (24.8 - 36.7) \\BLDo\\INR INTERPRETATION\\BLDx\\ Therapeutic range for Coumadin and related oral anticoagulants. -International Normalized Ratio (INR): 2.0 - 3.0 for Venous Thrombosis, Pulmonary Embolus, Tissue heart valves, Acute [place] Atrial Fibrillation, Valvular heart disease and recurrent Systemic Embolism. -International Normalized Ratio (INR): 2.5 - 3.5 for Mechanical Prosthetic valve. Urinalysis: (JONATHON: 08/27/2020 21:06) ( [facility] 08[facility] 21[facility]22[facility] Final results Test Result Flag Units (Reference) URINALYSIS URINALYSIS SOURCE Clean Catch COLOR yellow (NORMAL: Yel lo CLARITY clear (NORMAL: Clear SPEC GRAVITY 1.020 (1.001 - 1.030 pH 6.5 (5 - 9) GLUCOSE NORM (NORMAL: Negat BILIRUBIN NEG (NORMAL: Negat KETONE NEG (NORMAL: Negat PROTEIN NEG (NORMAL: Negat NITRITE NEG (NORMAL: Negat BLOOD 150 A (NORMAL: Negat LEUK EST NEG (NORMAL: Negat UROBILINOGEN NOR (less than 1.0 MICROSCOPIC See Below RBC 7 - 10 A (NORMAL: NONE EPITHELIAL FEW (NORMAL: NONE MUCOUS Trace (NORMAL: NONE.PROGRESS AND PROCEDURESCourse of Care: VSS, NAD, AOx3, interacting well and appropriately, no use of accessory muscle, able tospeak full sentences, stable, non-toxic looking. Enter room and pt lying peacefully in bed in NAD. Patient stable. Denies any new issues, concerns, or complaints. BRANDON anguiano NV intact b/l UE and LE. Noted CVA tendness. ? renal stone as no improvmenet of s/s with abx. Will order labs and imagng for furhter eval. Pending resuts. Reviwed results. 5 Clinical Report - Physicians/Mid Levels [facility] Emergency Department [address] [place] [address] Phone #: ext- [phone] 08/27/2020 20:43 Patient: BARBARA CARRILLO Sex: F : 1995 Age: 25y Enter room and patient lying peacefully in bed in NAD. Patient stable. Denies any new issues, concerns, or complaints. Discussed results with pt. Discussed tx plan with pt. Discussed and counseled on stable condition. Discussed importance of a f/u with PCP. Discussed return to ER criteria. Answered their questions. Indicates and verbalizes that they understand, agree, and will comply with above. Denies any new questions or concerns. Patient has capacity to understand. Discharge decision based on the following: patient's condition is stable; patient's exam is stable; social support is adequate; transportation is available; follow-up is available. Di scussed of OTC Motrin and Tylenol to control inflammation and pain management. Informed to follow directions on bottle that are appropriate for age and/or weight. Disposition: Discharged home in good and improved condition. Condition: good and stable.CLINICAL IMPRESSION Right nephrolithiasis. Single simple left ovarian cyst.INSTRUCTIONS Take Tylenol (Acetaminophen) or Motrin (Ibuprofen) as needed for fever control. Take medication according to label instructions. Drink plenty of fluids. No dietary restrictions. Warnings: Further evaluation is necessary. SEDATIVE MEDICATION: You were given sedative medication during your visit. Do not drive or operate dangerous machinery. CONTROLLED SUBSTANCE WARNINGS. GENERAL WARNINGS: Return or contact your physician immediately if your condition worsens or changes unexpectedly, if not improving as expected, or if other problems arise. Your Current Medications: Your current home medications have been reviewed. CONTINUE TAKING THE FOLLOWING MEDICATIONS: IUD*. Oral. Prescription monitor program consulted by me. Prescription does not exceed state maximum supply of medications 6 Clinical Report - Physicians/Mid Levels [facility] Emergency De partment [address] [place] [address] Phone #: ext- [phone] 08/27/2020 20:43 Patient: BARBARA CARRILLO Sex: F : 1995 Age: 25y Prescription Medications: [place] 5 mg-325 mg tablet Take 1 tablet three times a day for 3 days -- Dispense 9 tablet. Refills: 0. Substitution permitted. [facility] [id number] ; [place] [address]. . naproxen 500 mg tablet Take 1 tablet twice a day for 7 days -- Dispense 14 tablet. Refills: 0. Substitution permitted. [facility] [phone] ; [place] [address]. . Flomax 0.4 mg capsule Take 1 capsule once a day for 14 days -- To help with expulsion of stone. recommend to take in the AM. Dispense 14 capsule. Refills: 0. Substitution permitted. [facility] [phone] ; [place] [address]. . Follow-up: Return to the emergency department as needed. Follow up with your healthcare provider in about two days if not better. Call for an appointment. Understanding of the discharge instructions verbalized by patient. Follow-up with: Johny Bills M.D., Urology, , [address] [place] [address], [phone] Follow up. Reason for referral: evaluation and treatment.(Electronically signed by Mayank Paredes P.A.-C 08/28/2020 00:13) Name Value Range Interpretation Code Description Data Nati rce(s) Supporting Document(s) ID Date Data Source [id number] 09/01/2020 12:12:00 PM EST [facility] Name Value Range Interpretation Code Description Data Nati rce(s) Supporting Document(s) CULTURE URINE [facility] _CULTURE URINE_$$[id number]$$[id number]$$[id number]$$[id number]$$[id number]$$[id number]$$120637$$[id number]$$749320$$ 625295$$524194$$363906$$438572$$338698$$050928$$139247$$820536$$250157$$839614$$ 219102$$979026$$908742$$024614$$984659$$241745$$[id number]$$[id number] -- Continued on next page --Patient: LORENA JIMENEZ N Order: [id number] Page 2Culture: CULTURE URINE Status: Final ==== -- Continued on next page --Patient: LORENA JIMENEZ N Order: [id number] Page 2Culture: CULTURE URINE Status: Prelim =====$$[id number] DATE/TIME: 09/01/2020 12:06Culture: CULTURE URINE Status: FinalUrine Culture,Comprehensive: [id number] urogenital flora10,000-25,000 colony forming units per mL Previous result entered on 08/31/2020 03:50 ET Specimen has been received and testing has been initiated.P1 Test performed by: [facility]: [id number] [address] [id number] [facility] [id number] Director : Tyree Sutherland MD NPI #:Ophthalmologist Retina Specialist : 09/01/[email or web address] REF 09/01/[email or web address].SENT REF ID Date Data Source [id number] 08/27/2020 09:52:00 PM [facility] Name Value Range Interpretation Code Description Data Nati rce(s) Supporting Document(s) Lipase [Enzymatic activity/volume] in Serum or Plasma 29 U/L 13 - 60 [facility] ID Date Data Source [id number] 08/27/2020 09:52:00 PM [facility] Name Value Range Interpretation Code Description Data Nati rce(s) Supporting Document(s) COMPREHENSIVE METABOLIC PANEL [facility] COMPREHENSIVE METABOLIC PANEL Sodium [Moles/volume] in Serum or Plasma 138 mEq/L 134 - 153 [facility] Potassium [Moles/volume] in Serum or Plasma 3.8 mEq/L 3.6 - 5.0 [facility] Chloride [Moles/volume] in Serum or Plasma 107 mEq/L 98 - 107 [facility] Carbon dioxide, total [Moles/volume] in Serum or Plasma 26 MEQ/L 22 - 30 [facility] Glucose [Mass/volume] in Serum or Plasma 95 MG/DL 65 - 110 [facility] BUN 12 MG/DL 7 - 21 [facility] Creatinine [Mass/volume] in Serum or Plasma 0.5 MG/DL 0.7 - 1.5 L [facility] BUN/CREAT 24 8 - 27 [facility] Protein [Mass/volume] in Serum or Plasma 6.7 G/DL 6.3 - 8.2 [facility] Albumin [Mass/volume] in Serum or Plasma 4.0 G/DL 3.9 - 5.0 [facility] Globulin [Mass/volume] in Serum by calculation 2.7 GM/DL 2.4 - 3.2 [facility] A/G RATIO 1.5 0.8 - 2.0 [facility] Calcium [Mass/volume] in Serum or Plasma 9.0 MG/DL 8.4 - 10.2 [facility] Bilirubin.total [Mass/volume] in Serum or Plasma <0.7 MG/DL 0.2 - 1.3 [facility] Alkaline phosphatase [Enzymatic activity/volume] in Serum or Plasma 93 U/L 38 - 126 [facility] Aspartate aminotransferase [Enzymatic activity/volume] in Serum or Plasma 18 U/L 5 - 40 [facility] Alanine aminotransferase [Enzymatic activity/volume] in Seru m or Plasma 21 U/L 7 - 56 [facility] Anion gap 3 in Serum or Plasma 5.0 mmol/L 8.0 - 16.0 L [facility] AGE [address] [facility] al NON-AA GFR >60 mL/min [facility] ital AFR AMER GFR >60 mL/min [facility] Male GFR In terprentation 20-49 yrs >60 mL/min Normal 50-59 yrs >56 mL/min Normal 60-69 yrs >49 mL/min Normal 70-79yrs >42 mL/min Normal 80 and above >35 mL/min Normal Female GFR Interpretation 20-39 yrs >60 mL/min Normal 40-49 yrs >58 mL/min Normal 50-59 yrs >51 mL/min Normal 60-69 yrs >45 mL/min Normal 70-79 yrs >39 mL/min Normal 80 and above >32 mL/min Normal ID Date Data Source [id number] 08/27/2020 09:49:00 PM EST [facility] Name Value Range Interpretation Code Description Data Nati rce(s) Supporting Document(s) HCG SERUM QUAL NEGATIVE NORMAL: NEGATIVE [facility] HCG SERUM QL REENTER NEGATIVE NORMAL: NEGATIVE [facility] { KIT LOT # [id number] ){ KIT EXP DATE 07/08/21 ){ PROCEDURAL CONTROL VALID ) ID Date Data Source [id number] 08/27/2020 09:37:00 PM EST [facility] Name Value Range Interpretation Code Description Data [facility] rce(s) Supporting Document(s) Prothrombin time (PT) 12.7 SECONDS 11.0 - 15.5 Health system INR in Platelet poor plasma by Coagulation assay 0.91 0.93 - 1. 23 L [facility] aPTT in Blood by Coagulation assay 25.8 SECONDS 24.8 - 36.7 [facility] \\BLDo\\INR INTERPRETATION\\BLDx\\ Therapeutic range for Coumadin and related oral anticoagulants. - International Normalized Ratio (INR): 2.0 - 3.0 for Venous Thrombosis, Pulmonary Embolus, Tissue heart valves, Acute [place] Atrial Fibrillation, Valvular heart disease and recurrent Systemic Embolism. - International Normalized Ratio (INR): 2.5 - 3.5 for Mechanical Prosthetic valve. ID Date Data Source [id number] 08/27/2020 09:32:00 PM EST [facility] Name Value Range Interpretation Code Description Data [facility](s) Supporting Document(s) CBC W/AUTOMATED DIFF [facility] COMPLETE BLOOD COUNT Leukocytes [#/volume] in Blood by Automated count 6.0 10^3/uL 4.2 - 1 1.0 [facility] Erythrocytes [#/volume] in Blood by Automated count 4.57 10^6/uL 4. 20 - 5.40 [facility] Hemoglobin [Mass/volume] in Blood 13.4 g/dL 12.0 - 16.0 [facility] Hematocrit [Volume Fraction] of Blood by Automated count 38.8 % 3 7.0 - 47.0 [facility] Erythrocyte mean corpuscular volume [Entitic volume] by Auto mated count 84.9 fL 81.0 - 101 [facility] Erythrocyte mean corpuscular hemoglobin [Entitic mass] by Automated count 29.3 pg 27.0 - 34.0 [facility] Erythrocyte mean corpuscular hemoglobin concentration [Mass/volume] by Automated count 34.5 g/dL 31.0 - 36.0 [facility] Erythrocyte distribution width [Ratio] by Automated count 12.8 % 11.5 - 14.5 [facility] Platelets [#/volume] in Blood by Automated count 293 10^3/uL 150 - 45 0 [facility] Platelet mean volume [Entitic volume] in Blood by Automated count 10.2 fL 7.4 - 10.4 [facility] Neutrophils/100 leukocytes in Blood by Automated count 46.1 % 37. 0 - 80.0 [facility] Lymphocytes/100 leukocytes in Blood by Manual count 39.7 % 25.0 - 40.0 [facility] Monocytes/100 leukocytes in Blood by Automated count 11.1 % 3.0 - 8.0 H [facility] Eosinophils/100 leukocytes in Blood by Automated count 2.0 % 0.0 - 7.0 [facility] Basophils/100 leukocytes in Blood by Automated count 0.8 % 0.0 - 2.5 [facility] %IG 0.3 % 0.0 - 0.0 H [facility] %NRBC 0.0 % 0.0 - 0.0 [facility] al Neutrophils [#/volume] in Blood by Automated count 2.78 10^3/uL 2.00 - 6.90 [facility] Lymphocytes [#/volume] in Blood by Automated count 2.40 10^3/uL 0.60 - 3.40 [facility] Monocytes [#/volume] in Blood by Automated count 0.67 10^3/uL 0.00 - 0.90 [facility] Eosinophils [#/volume] in Blood by Automated count 0.12 10^3/uL 0.00 - 0.70 [facility] Basophils [#/volume] in Blood by Automated count 0.05 10^3/uL 0.00 - 0.20 [facility] #IG 0.02 10^3/uL 0.00 - 0.10 [facility] ospital #NRBC 0.00 10^3/uL 0.00 - 0.00 [facility] ospital MANUAL DIFF NOT INDICATED [facility] RBC MORPH NOT INDICATED [facility] spital ID Date Data Source [id number] 08/27/2020 09:31:00 PM EST [facility] Name Value Range Interpretation Code Description Data Nati rce(s) Supporting Document(s) Lactate [Moles/volume] in Serum or Plasma 0.9 MMOL/L 0.2 - 2.2 [facility] ID Date Data Source [id number] 08/27/2020 09:21:00 PM EST [facility] Name Value Range Interpretation Code Description Data Nati rce(s) Supporting Document(s) URINALYSIS [facility] abby URINALYSIS SOURCE Clean Catch [facility] ital COLOR yellow NORMAL: Yellow [facility]sp[facility] CLARITY clear NORMAL: Clear [facility] Specific gravity of Urine by Test strip 1.020 1.001 - 1.030 [facility] pH 6.5 5 - 9 [facility] Glucose [Mass/volume] in Urine by Test strip NORM NORMAL: Negat [facility] Bilirubin.total [Presence] in Urine by Test strip NEG NORMAL: Negative [facility] Ketones [Presence] in Urine by Test strip NEG NORMAL: Negative [facility] Protein [Mass/volume] in Urine by Test strip NEG NORMAL: Negat [facility] Nitrite [Presence] in Urine by Test strip NEG NORMAL: Negative [facility] BLOOD 150 NORMAL: Negative [facility] Leukocyte esterase [Presence] in Urine by Test strip NEG LIVAN L: Negative [facility] Urobilinogen [Mass/volume] in Urine by Test strip NOR less wale n 1.0 mg/dL [facility] MICROSCOPIC See Below [facility] ital Erythrocytes [#/volume] in Urine by Test strip 7 - 10 NORMAL: NON E SEEN A [facility] EPITHELIAL FEW NORMAL: NONE SEEN [facility] Mucus [Presence] in Urine sediment by Light microscopy Trace NORMAL: NONE SEEN [facility] ID Date Data Source [id number] 07/02/2020 03:46:00 PM EDT [facility] ([facility]) Name Value Range Interpretation Code Description Data Nati rce(s) Supporting Document(s) Inhouse Urine Test Laboratory test result [facility] ([facility]) Procedure Social History Code Duration Value Status Description Data Source(s ) Smoking 06/13/2021 12:00:00 AM EDT Never smoker completed Never s moker [facility] ([facility]) Smoking 03/27/2021 12:00:00 AM EDT Never Smoker completed Never S moker eCW1 ([facility] 1928[facility]1983) Vital Signs ID Date Data Source UNK Name Value Range Interpretation Code Description Data Source(s) Body height 157.48 cm 157.48 cm [facility] ([facility]) Body weight 68.946 kg 68.946 kg [facility] ([facility] Systolic blood pressure 92 mm[Hg] 92 mm[Hg] N extGen ([facility]) Diastolic blood pressure 70 mm[Hg] 70 mm[Hg] [facility] ([facility]) Body mass index (BMI) [Ratio] 27.80 kg/m2 Overweight 27.80 kg/m2 [facility] ([facility] Body weight 152.8 [lb_av] 152.8 [lb_av] eCW1 ([facility]) Body weight 69.3 kg 69.3 kg eCW1 ([facility]) Body height 62 [in_i] 62 [in_i] eCW1 ([facility]) Body mass index (BMI) [Ratio] 27.94 kg/m2 27.94 kg/m2 W1 ([facility] 1928[facility]) Heart rate 75 /min 75 /min eCW1 ([facility]) Respiratory rate 16 /min 16 /min eCW1 ([facility]) Body temperature 97.8 [degF] 97.8 [degF] eCW1 ( [facility]) Systolic blood pressure 112 mm[Hg] 112 mm[Hg] e CW1 ([facility]) Diastolic blood pressure 66 mm[Hg] 66 mm[Hg] eCW1 ([facility]) Systolic blood pressure 18 mm[Hg] 18 mm[Hg] M EDENT ([facility] Diastolic blood pressure 72 mm[Hg] 72 mm[Hg] MED[facility] ([facility] Body temperature 97.5 [degF] 97.5 [degF] [facility] ([facility] Heart rate 76 /min 76 /min [facility] ([facility] Respiratory rate 16 /min 16 /min [facility] ( [facility] Body mass index (BMI) [Ratio] 27.8 kg/m2 27.8 k g/m2 [facility] ([facility] Systolic blood pressure--sitting 106 mm[Hg] 106 mm[Hg] [facility] ([facility] P-72 Oxygen saturation in Arterial blood by Pulse oximetry 98 % 98 % MED[facility] ([facility] (AT Rest), (Room Air) Systolic blood pressure--supine 116 mm[Hg] 116 mm[Hg] MEDENT ([facility] P-71 Diastolic blood pressure--supine 60 mm[Hg] 60 mm[Hg] MED[facility] ([facility] P-71 Diastolic blood pressure--sitting 60 mm[Hg] 60 mm[Hg] MEDENT ([facility] P-72 Systolic blood pressure--standing 102 mm[Hg] 10 2 mm[Hg] MEDENT ([facility] P-72 Body height 62 [in_i] 62 [in_i] MEDENT ([facility] 5'2" Body weight 152.00 [lb_av] 152.00 [lb_av] MEDEN T ([facility] Ruby body weight 110 [lb_av] 110 [lb_av] MEDEN T ([facility] Diastolic blood pressure--standing 60 mm[Hg] 6 0 mm[Hg] MEDENT ([facility] P-72 Systolic blood pressure 106 mm[Hg] 106 mm[Hg] M EDENT ([facility]) Diastolic blood pressure 70 mm[Hg] 70 mm[Hg] MEDENT ([facility], [facility]) Heart rate 51 /min 51 /min MEDENT ([facility]) Respiratory rate 16 /min 16 /min MED[facility] ( [facility]) Oxygen saturation in Arterial blood by Pulse oximetry 98 % 98 % MED[facility] ([facility], [facility]) Body temperature 98.3 [degF] 98.3 [degF] MEDENT ([facility], [facility]) Body weight 150.00 [lb_av] 150.00 [lb_av] MEDEN T ([facility], [facility]) Body height 62 [in_i] 62 [in_i] MEDENT ([facility]) 5'2" Body mass index (BMI) [Ratio] 27.4 kg/m2 27.4 k g/m2 [facility] ([facility]) Systolic blood pressure 98 mm[Hg] 98 mm[Hg] M EDENT ([facility]) Diastolic blood pressure 70 mm[Hg] 70 mm[Hg] MED[facility] ([facility]) Heart rate 75 /min 75 /min [facility] ([facility]) Body temperature 97.7 [degF] 97.7 [degF] [facility] ([facility]) Body weight 149.00 [lb_av] 149.00 [lb_av] MEDEN T ([facility]) Body weight 67.586 kg 67.586 kg MEDENT ([facility]) Body height 62 [in_i] 62 [in_i] MEDENT ([facility]) 5'2" Body mass index (BMI) [Ratio] 27.2 kg/m2 27.2 k g/m2 [facility] ([facility]) Body surface area Derived from formula 1.69 m2 1.69 m2 [facility] ([facility])
--- OUTSIDE RECORDS SUMMARY | 2021-08-04 21:26 | CCD | Continuity of Care Document ---
Author Author [facility] Organization [facility] Address Unknown Phone Unavailable Care Team Providers [employer] Sales Representative Name Role Phone Melvi Flores Unavailable Unavailable Allergies, Adverse Reactions, Alerts Substance Reaction Status Criticality No Known Allergies Active No Information Medications Medication Instructions Dosage Effective Dates (start - stop) Sta tus Comments No Drug Therapy Prescribed Problems Condition Effective Dates (start - stop) Clinical Status C omments Encounter for test, result positive Human immunodeficiency virus [HIV] counseling Other sex counseling Encounter for oth general cnsl and advice on contraception Less than 8 weeks gestation of Procedures Procedure Date URINE TEST Ultrasound Uterus OFFICE VISIT, NEW [facility] Without Test CVR Blood Pressure CVR Med.Svc. Height/Weight CVR Pan Greaser.Svc. Other Results Test Name Date and Time Measure Units Reference Range Abnormal Flag St atus Comments Panel Description: High Sensitivity Urine Test Fi nal High Sensitivity Urine Test 11:58:21 P ositiveLot: [id number]: 11/02/2022 A Final Advance Directives Directive Yes / No Effective Date File Name No Information Encounters Encounter Description Practice Location Reason(s) For Visit Diagnose s Date Provider Providers Copied on Encounter [facility] [address], [place], [id number], tel:[phone] [facility] Test (ch ief complaint) Encounter for test, result pos itiveHuman immunodeficiency virus [HIV] counselingOther sex counselingEncounter for oth general cnsl and advice on contraceptionLess than 8 weeks gestation of Jerilyn Ogden. [address] [place] [address], [id number], . tel:[phone] Referring Provider: Melvi Jean-Baptiste, [address], [place], [id number]. tel:[phone] Family History Family Member Diagnosis Age At Onset No Information Immunizations Vaccine Date Status Comments No Information Payers Payer name Insurance type Covered libertarian ID Authorization(s ) [facility] [id number] Social History Type Description Quantity Date Captured Comments Alcohol Use Details Unknown Caffeine Use Details Unknown Tobacco Use Status Never smoked tobacco Smoking Status Never smoker Sex Female Vital Signs Date / Time: Height Weight BMI Pulse Rate Blood Pressure Temperatu re Respiratory Rate Body Surface Area Head Circumference BMI percentile Pulse Ox In haled Ox 11:25 AM 62.00 in 152.00 lbs 27.80 kg/meter(2) 92/70 m m[Hg] Chief Complaint And Reason For Visit Most recent encounter only, dated '06/13/2021 11:00'. Test (chief complaint) Reason For Referral Reason For Referral No Information Plan Of Treatment Date Type Action Status No Information History Of Present Illness Encounter Date Complaint History Of Present I llness No Information Functional Status Date Functional Assessment No Information Medications Administered Medication Instructions Dosage Effective Dates (start - stop) Sta tus Comments No Drug Therapy Prescribed Instructions Date Instruction Additional Informati on No Information Assessments Type Assessment Date assessment Encounter for test, result pos itive assessment Human immunodeficiency virus [HIV] couns eling assessment Other sex counseling assessment Encounter for oth general cnsl and advic e on contraception assessment Less than 8 weeks gestation of Goals Health Concern Goal Type Priority Status Date No Information Medical Equipment Description Device [place] Device Identifier Effective Alexis es (start - stop) Status No Information Mental Status Date Cognitive Assessment Orientation - Oriented to ti me, place, person, situation.Normal Orientation Health Concerns Observation Date No Information Concern Status Date No Information Physical Examination Exam Findings Details Neurological Normal Level of consciousne ss - Normal. Orientation - Normal. Psychiatric Normal Orientation - [place] ed to time, place, person & situation.
--- OUTSIDE RECORDS SUMMARY | 2021-08-05 04:21 | CCD ---
Author Author [facility] Organization [facility] Address Unknown Phone Unavailable Care Team Providers Care Material Handling Supervisor Name Role Phone NO, PCP Unavailable Unavailable [...] Jean-Baptiste Unavailable Unavailable Jeni Jean-Baptiste Unavailable Unavailable Moriah, J Melvi PA Unavailable Unavailable Jeni Jean-Baptiste PA Unavailable Unavailable Jeni Jean-Baptiste PA Unavailable Unavailable AMERNATH, PETRAAPPA MD Unavailable Unavailable AMERNATH, PETRAAPPA MD Unavailable Unavailable AMERNATH, PETRAAPPA MD Unavailable Unavailable AMERNATH, PETRAAPPA MD Unavailable Unavailable AMERNATH, PETRAAPPA MD Unavailable Unavailable AMERNATH, LINGAPPA MD Unavailable Unavailable AMERNATH, LINGAPPA MD Unavailable Unavailable AMERNATH, LINGAPPA MD Unavailable Unavailable AMERNATH, PETRAAPPA MD Unavailable Unavailable AMERNATH, PETRAAPPA MD Unavailable Unavailable AMERNATH, PETRAAPPA MD Unavailable Unavailable AMERNATH, LINGAPPA MD Unavailable Unavailable LETTIERE, A CARLOS EDUARDO [...] Jaja PA Unavailable Unavailable VIGIL, LENNY VANESSA PATIENTS TRANSPORTER Unavailable Unavailable VIGIL, LENNY VANESSA PATIENTS TRANSPORTER Unavailable Unavailable VIGIL, LENNY VANESSA PATIENTS TRANSPORTER Unavailable Unavailable VIGIL, LENNY VANESSA PATIENTS TRANSPORTER Unavailable Unavailable VIGIL, LENNY VANESSA PATIENTS TRANSPORTER Unavailable Unavailable VIGIL, LENNY VANESSA PATIENTS TRANSPORTER Unavailable Unavailable VIGIL, LENNY VANESSA PATIENTS TRANSPORTER Unavailable Unavailable VIGIL, LENNY VANESSA PATIENTS TRANSPORTER Unavailable Unavailable VIGIL, LENNY VANESSA PATIENTS TRANSPORTER Unavailable Unavailable VIGIL, LENNY VANESSA PATIENTS TRANSPORTER Unavailable Unavailable VIGIL, LENNY VANESSA PATIENTS TRANSPORTER Unavailable Unavailable VIGIL, LENNY VANESSA PATIENTS TRANSPORTER Unavailable Unavailable VIGIL, LENNY VANESSA PATIENTS TRANSPORTER Unavailable Unavailable VIGIL, LENNY VANESSA PATIENTS TRANSPORTER Unavailable Unavailable VIGIL, LENNY VANESSA PATIENTS TRANSPORTER Unavailable Unavailable VIGIL, LENNY VANESSA PATIENTS TRANSPORTER Unavailable Unavailable VIGIL, LENNY VANESSA PATIENTS TRANSPORTER Unavailable Unavailable VIGIL, LENNY VANESSA PATIENTS TRANSPORTER Unavailable Unavailable VIGIL, LENNY VANESSA PATIENTS TRANSPORTER Unavailable Unavailable VIGIL, LENNY VANESSA PATIENTS TRANSPORTER Unavailable Unavailable VIGIL, LENNY VANESSA PATIENTS TRANSPORTER Unavailable Unavailable VIGIL, LENNY VANESSA PATIENTS TRANSPORTER Unavailable Unavailable VIGIL, LENNY VANESSA PATIENTS TRANSPORTER Unavailable Unavailable Ji LEONARD MD Unavailable Unavailable [...] is protected by Article 27-F of the [facility] Public Health law. If you continue you may have access to information: Regarding HIV / AIDS; Provided by facilities licensed or operated by the [facility] Office of Mental Health; or Provided by the [facility] Office for People With Developmental Disabilities. If such information is present, then the following [facility] mandated warning applies: This information has [...] VISIT, NEW Attender: Melvi TOMLIN PPNCNY [place] 06/13/2021 11:00:00 AM EDT - 06/13/2021 11:00:00 AM EDT Less than 8 weeks gestation of pregnancyEncounter for oth general cnsl and advice on contraceptionOther sex counselingHuman immunodeficiency virus [HIV] counselingEncounter for test, result positive NextGen ([facility]) Less than 8 weeks gestation of Encounter for oth general cnsl and advic e on contraception Other sex counseling Human immunodeficiency virus [HIV] couns betsy Encounter for test, result pos itive Outpatient [address] [facility] [address] 03/27/2021 12:00:00 AM EDT eCW1 ([facility]) Outpatient Attender: VANESSA VIGIL NP 021 09:06:00 AM EST - 12/08/2020 09:06:00 AM [facility] Outpatient Attender: Jaja TOMLIN [facility] 11/07/2020 08:30:00 AM EST [facility] ([facility] Outpatient Attender: CARLOS EDUARDO mckenna 10/21/2020 08:35:00 AM EST [facility] ([facility] Emergency Attender: MIGUEL A FLORES MDConsultant: PCP NO 08/27/2020 08:58:00 PM EST - 08/27/2020 11:20:[address] [facility] pital Patient discharged. Outpatient Attender: KIRAN LEONARD MD 03:21:00 PM EDT - 07/02/2020 03:21:00 PM EDT [facility] Immunizations Vaccine Date Status Description Data Source(s) COVID-19 VACCINE Moderna 02/10/2021 12:00:00 AM EDT completed [facility] Vaccine Series Complete: YESThis Data wa s Submitted to [facility] Via [employer] COVID-19 VACCINE Moderna 01/13/2021 12:00:00 AM EDT completed [facility] Vaccine Series Complete: NOThis Data was Submitted to [facility] Via [employer] Medications Medication Brand Name Start Date Product Form Dose Route Admi nistrative Instructions Pharmacy Instructions Status Indications Reaction Description Data Source(s) Sprintec 28 Sprintec 28 05/09/2020 12:00:00 AM EDT ORAL completed [facility] ([facility]) Insurance Providers Payer name Policy type / Coverage type Policy ID Covered republican ID Covered republican's relationship to yi Policy Yi Plan Information [facility] [id number] [facility] [id number] [facility] ACTIVE DUTY [id number] SP [id number] SELF PAY [facility] [id number] [facility] [id number] [facility] [id number] [facility] O/P [id number] 01 [id number] [facility] - O/[place] OO 01 [place] [id number] 01 [id number] [facility] HUMAN [id number] 2 [id number] [facility] [id number] HU2 [id number] [facility] REG O [id number] S [id number] [facility] O [id number] S [id number] HEA [id number] S [id number] HEA [id number] S [id number] SELF PAY O UNAVAILABLE [id number] S UNAVAILA BLE [facility] HUMANA - O/P [id number] 18 [id number] EAST ACTIVE DUTY [id number] SP [id number] ACTIVE DUTY [id number] SP [id number] [facility][NOTE 3] [id number] SP [id number] [facility]/ AD O [id number] S [id number] SELF PAY ONLY [id number] SP [id number] Problems, Conditions, and Diagnoses Code Display Name Description Problem Type Effective Dates Data Source(s) B0089 Other herpesviral infection Other herpesviral infectio n Diagnosis 12/08/2020 09:06:00 AM [facility] B64371 Encounter for removal of intrauterine co ntraceptive device Encounter for removal of intrauterine contraceptive device Diagnosis 1 09:06:00 AM [facility] [id number] Unspecified ovarian cyst, left side Unspecified ovarian cyst, left side Diagnosis 08/27/2020 08:58:00 PM [facility] N200 Calculus of kidney Calculus of kidney Diagnosis 0 08:58:00 PM [facility] R1032 Left lower quadrant pain Left lower quadrant pain Diag nosis 08/27/2020 08:58:00 PM [facility] C47238 Encounter for insertion of intrauterine contraceptive device Encounter for insertion of intrauterine contraceptive device Diagnosis 03:21:00 PM EDT [facility] Surgeries/Procedures Procedure Description Date Indications Data Source(s) CVR Box Nailer.Svc. Other 06/13/2021 12:00:00 AM EDT - 2020 12:00:00 AM EDT [facility] ([facility]) CVR Med.Svc. Height/Weight 06/13/2021 12 :00:00 AM EDT - 06/13/2021 12:00:00 AM EDT [facility] ([facility]) CVR Blood Pressure 06/13/2021 12:00:00 AM EDT - 2020 12:00:00 AM EDT [facility] ([facility] HCS Without Test 06/13/2021 12:00:00 AM EDT - 06/13/20 21 12:00:00 AM EDT [facility] ([facility]) OFFICE VISIT, NEW 06/13/2021 12:00:00 AM EDT - 021 12:00:00 AM EDT [facility] ([facility]) Ultrasound Uterus 06/13/2021 12 :00:00 AM EDT - 06/13/2021 12:00:00 AM EDT [facility] ([facility]) URINE TEST 06/13/2021 12:00:00 AM EDT - 06/13/2021 12:00:00 AM EDT [facility] ([facility]) Electrocardiogram Complete 11/07/2020 12:00:00 AM EST [facility] ([facility] Insert Intrauterine Device 07/02/2020 12:00:00 AM EDT [facility] ([facility]) Results ID Date Data Source [id number] 06/29/2021 03:56:08 PM EDT [facility] Name Value Range Interpretation Code Description Data Nati rce(s) Supporting Document(s) LEAD,VENOUS WB @ <2.0 ug/dL (0.0-4.9) [facility] Testing performed by graphite furnaceato timmy absorption spectroscopy. Information for health careproviders on lead poisoningprevention and management isavailable on the [facility] website. ID Date Data Source [id number] 06/13/2021 11:58:21 AM EDT Next[facility] ([facility]) Name Value Range Interpretation Code Description Data Nati rce(s) Supporting Document(s) PositiveLot: [id number]: 11/02/2022 Abnormal (applies to non-numeric results) High Sensitivity Urine Test NextGen ([facility]) ID Date Data Source [id number] 01/05/2021 11:20:00 AM EDT [facility] Name Value Range Interpretation Code Description Data Nati rce(s) Supporting Document(s) SARS-CoV-2 (COVID-19) RNA [Presence] in Respiratory specimen by ANIKA with probe detection Not Detected [facility] This lab was ordered by [facility] and reported by [employer]. ID Date Data Source [id number] 12/05/2020 11:00:00 AM EST [facility] Name Value Range Interpretation Code Description Data Nati rce(s) Supporting Document(s) SARS coronavirus 2 RNA Not Detected [facility] This lab was ordered by [facility] and reported by [facility]. ID Date Data Source [id number] 11/07/2020 10:23:00 AM EST [facility] ([facility] Name Value Range Interpretation [...] HCT IS 5% LESS SOURCE FOR DATA: [employer] 1800 OPERATION MANUAL( AUTOMATED BLOOD COUNTS AND [...] HCT IS 5% LESS SOURCE FOR DATA: [employer] 1800 OPERATION MANUAL( AUTOMATED BLOOD COUNTS AND [...] above >32 mL/min Normal BUN 10 mg/dL 8-23 [facility] ([facility] NORMAL RANGES Age [...] HCT IS 5% LESS SOURCE FOR DATA: [employer] 1800 OPERATION MANUAL( AUTOMATED BLOOD COUNTS AND [...] above >32 mL/min Normal BUN/Creatinine Ratio 18.9 CALC [facility] ([facility] NORMAL RANGES Age WBC [...] HCT IS 5% LESS SOURCE FOR DATA: [employer] 1800 OPERATION MANUAL( AUTOMATED BLOOD COUNTS AND [...] Na 135 mmol/L 136-145 Below low normal [facility] ( [facility] NORMAL RANGES Age WBC [...] HCT IS 5% LESS SOURCE FOR DATA: [employer] 1800 OPERATION MANUAL( AUTOMATED BLOOD COUNTS AND [...] >32 mL/min Normal Co2 22.3 mmol/L 22.0-29.0 [facility] ([facility] NORMAL RANGES Age WBC RBC HGB [...] HCT IS 5% LESS SOURCE FOR DATA: [facility] DYN 1800 OPERATION MANUAL( AUTOMATED BLOOD COUNTS [...] >32 mL/min Normal CL 106.1 mmol/L 98.0-107.0 [facility] ([facility] NORMAL RANGES Age WBC [...] HCT IS 5% LESS SOURCE FOR DATA: [employer] 1800 OPERATION MANUAL( AUTOMATED BLOOD COUNTS AND [...] >32 mL/min Normal K 4.3 mmol/L 3.5-5.1 [facility] ([facility] NORMAL RANGES Age WBC RBC [...] HCT IS 5% LESS SOURCE FOR DATA: [employer] 1800 OPERATION MANUAL( AUTOMATED BLOOD COUNTS AND [...] TP 6.4 g/dL 6.6-8.7 Below low normal [facility] ( [facility] NORMAL RANGES [...] HCT IS 5% LESS SOURCE FOR DATA: [employer] 1800 OPERATION MANUAL( AUTOMATED BLOOD COUNTS AND [...] >32 mL/min Normal Alb 4.2 g/dL 3.4-4.8 [facility] ([facility] NORMAL RANGES Age [...] HCT IS 5% LESS SOURCE FOR DATA: [employer] 1800 OPERATION MANUAL( AUTOMATED BLOOD COUNTS AND [...] >32 mL/min Normal CA 9.0 mg/dL 8.6-10.2 [facility] ([facility] NORMAL [...] HCT IS 5% LESS SOURCE FOR DATA: [employer] 1800 OPERATION MANUAL( AUTOMATED BLOOD COUNTS AND [...] >32 mL/min Normal A/G Ratio 1.9 CALC [facility] ([facility] NORMAL [...] HCT IS 5% LESS SOURCE FOR DATA: [employer] 1800 OPERATION MANUAL( AUTOMATED BLOOD COUNTS AND [...] HCT IS 5% LESS SOURCE FOR DATA: [employer] 1800 OPERATION MANUAL( AUTOMATED BLOOD COUNTS AND [...] >32 mL/min Normal Alp 86.2 U/L 35-129 [facility] NORMAL RANGES Age WBC [...] HCT IS 5% LESS SOURCE FOR DATA: [employer] 1800 OPERATION MANUAL( AUTOMATED BLOOD COUNTS AND [...] mL/min Normal Alt (SGPT) 14 U/L 0-41 [facility] ([facility] NORMAL RANGES Age WBC RBC HGB [...] HCT IS 5% LESS SOURCE FOR DATA: [employer] 1800 OPERATION MANUAL( AUTOMATED BLOOD COUNTS AND [...] mL/min Normal Ast (Sgot) 14 U/L 0-40 [facility] ([facility] NORMAL RANGES Age WBC RBC [...] HCT IS 5% LESS SOURCE FOR DATA: [employer] DYN 1800 OPERATION MANUAL( AUTOMATED BLOOD COUNTS [...] HCT IS 5% LESS SOURCE FOR DATA: [employer] 1800 OPERATION MANUAL( AUTOMATED BLOOD COUNTS AND [...] >32 mL/min Normal Anion Gap 11 mmol/L [facility] NORMAL RANGES Age WBC [...] HCT IS 5% LESS SOURCE FOR DATA: [employer] 1800 OPERATION MANUAL( AUTOMATED BLOOD COUNTS AND [...] >32 mL/min Normal Tbili 0.41 mg/dL 0.0-1.2 [facility] ([facility] NORMAL RANGES Age WBC RBC [...] HCT IS 5% LESS SOURCE FOR DATA: [employer] 1800 OPERATION MANUAL( AUTOMATED BLOOD COUNTS AND [...] and above >32 mL/min Normal eGFR Non-Afr. Iraqi 135 # [facility] ([facility] [...] HCT IS 5% LESS SOURCE FOR DATA: [employer] 1800 OPERATION MANUAL( AUTOMATED BLOOD COUNTS AND [...] HCT IS 5% LESS SOURCE FOR DATA: [employer] 1800 OPERATION MANUAL( AUTOMATED BLOOD COUNTS AND [...] >32 mL/min Normal ID Date Data Source [id number] 11/07/2020 10:23:00 AM SOLO GALEANA ([facility] Name Value Range Interpretation Code Description Data Nati rce(s) Supporting Document(s) WBC 4.8 10E3/uL 4.1-10.9 [facility] ([facility] NORMAL RANGES Age WBC [...] HCT IS 5% LESS SOURCE FOR DATA: [employer] 1800 OPERATION MANUAL( AUTOMATED BLOOD COUNTS AND [...] RBC 4.30 10E6/uL 4.20-6.30 [facility] ([facility] NORMAL RANGES Age WBC RBC [...] HCT IS 5% LESS SOURCE FOR DATA: [employer] 1800 OPERATION MANUAL( AUTOMATED BLOOD COUNTS AND [...] HCT 36.8 % 37.0-51.0 Below low normal [facility] ( [facility] NORMAL RANGES Age WBC [...] HCT IS 5% LESS SOURCE FOR DATA: [employer] 1800 OPERATION MANUAL( AUTOMATED BLOOD COUNTS AND [...] >32 mL/min Normal HGB 12.8 g/dL 12.0-18.0 [facility] NORMAL RANGES Age WBC [...] >32 mL/min Normal MCV 85.6 fL 80.0-97.0 [facility] NORMAL RANGES Age WBC [...] HCT IS 5% LESS SOURCE FOR DATA: [employer] 1800 OPERATION MANUAL( AUTOMATED BLOOD COUNTS AND [...] >32 mL/min Normal MCH 29.8 pg 26.0-32.0 [facility] ([facility] NORMAL RANGES [...] HCT IS 5% LESS SOURCE FOR DATA: [employer] 1800 OPERATION MANUAL( AUTOMATED BLOOD COUNTS AND [...] >32 mL/min Normal PLT 245 10E3/uL 140-440 [facility] ([facility] NORMAL RANGES Age WBC [...] HCT IS 5% LESS SOURCE FOR DATA: [employer] 1800 OPERATION MANUAL( AUTOMATED BLOOD COUNTS AND [...] >32 mL/min Normal MCHC 34.8 g/dL 31.0-36.0 [facility] ([facility] NORMAL [...] HCT IS 5% LESS SOURCE FOR DATA: [employer] 1800 OPERATION MANUAL( AUTOMATED BLOOD COUNTS AND [...] HCT IS 5% LESS SOURCE FOR DATA: [employer] 1800 OPERATION MANUAL( AUTOMATED BLOOD COUNTS AND [...] >32 mL/min Normal RDW-CV 12.8 % 11.5-14.5 [facility] NORMAL RANGES Age WBC [...] HCT IS 5% LESS SOURCE FOR DATA: [employer] 1800 OPERATION MANUAL( AUTOMATED BLOOD COUNTS AND [...] >32 mL/min Normal Neut% 59.8 % 37.0-92.0 [facility] ([facility] NORMAL RANGES [...] HCT IS 5% LESS SOURCE FOR DATA: [employer] 1800 OPERATION MANUAL( AUTOMATED BLOOD COUNTS AND [...] mL/min Normal MXD% 9.1 % 0.1-24.0 [facility] ([facility] NORMAL RANGES Age WBC [...] HCT IS 5% LESS SOURCE FOR DATA: [employer] 1800 OPERATION MANUAL( AUTOMATED BLOOD COUNTS AND [...] >32 mL/min Normal Lym# 1.5 10E3/uL 0.6-4.1 [facility] ([facility] NORMAL RANGES Age WBC RBC HGB [...] >32 mL/min Normal Neut# 2.9 % 2.0-7.8 [facility] NORMAL RANGES Age WBC [...] HCT IS 5% LESS SOURCE FOR DATA: [employer] 1800 OPERATION MANUAL( AUTOMATED BLOOD COUNTS AND [...] >32 mL/min Normal MXD# 0.4 10E3/uL 0.0-1.8 [facility] ([facility] NORMAL RANGES Age WBC [...] HCT IS 5% LESS SOURCE FOR DATA: [employer] 1800 OPERATION MANUAL( AUTOMATED BLOOD COUNTS AND [...] >32 mL/min Normal MPV 10.3 fL 9.0-13.0 [facility] ([facility] NORMAL RANGES [...] HCT IS 5% LESS SOURCE FOR DATA: [employer] 1800 OPERATION MANUAL( AUTOMATED BLOOD COUNTS AND [...] >32 mL/min Normal ID Date Data Source [id number] 10/21/2020 12:00:00 AM EST [facility] Name Value Range Interpretation Code Description Data Nati rce(s) Supporting Document(s) SARS-CoV2 Rapid Antigen Positive [facility] This lab was reported by [facility]. ID Date Data Source [id number] 08/10/2020 12:00:00 AM EST [facility] Name Value Range Interpretation Code Description Data Nati rce(s) Supporting Document(s) SARS coronavirus 2 Ag [facility] This lab was ordered by [facility] and reported by [facility]. ID Date Data Source [id number] 10/06/2020 09:04:00 AM EST [facility] Name Value Range Interpretation Code Description Data Nati rce(s) Supporting Document(s) SARS-CoV-2 (COVID-19) Negative [facility] This lab was ordered by [place] [facility] and reported by [employer]. ID Date Data Source [id number] 09/01/2020 10:48:00 AM EST [facility] [address] [place] [address] PHONE: [phone] FAX: [phone] Name .................. : LORENA Doty Acct Number.................. : [id number] ROOM. ................. : TR-06 Number ................... : [id number] Stay type ............. : E/R Discharge Date......... ... : 08/27/20 Admit Date ......... : 08/27/20 Admit Phys .................... : MARK Goss Date of ....... : 1995 Family Phys ................... : Phone .................. : [phone] Age ................................ : 25 Film# .................. .:[id number] Sex ................................. : F Unsigned transcriptions are preliminary reports and do not represent a medical or legal document CT ABD & PELV W/[place] ORAL W/[place] [id number] COMPLETE:08/27/20 21:30 [id number] Reason(s): NO CONTRAST. Pending HCG. ? renal [...] left ovarian cyst. Page 1 of 2 [facility] [address] [place] [address] PHONE: [phone] FAX: [phone] Name .................. : LORENA JIMENEZ Eduin Acct Number.................. : [id number] ROOM. ................. : TR-06 MR Number ................... : [id number] Stay type ............. : E/R Discharge Date......... ... : 08/27/20 Admit Date ......... : 08/27/20 Admit Phys .................... : MARK Goss Date of ....... : 1995 Family Phys ................... : Phone .................. : [phone] Age ................................ : 25 Film# .................. .:[id number] Sex ................................. : F Unsigned transcriptions are preliminary reports and do not represent a medical or legal document CT ABD & PELV W/[place] ORAL W/[place] [id number] COMPLETE:08/27/20 21:30 [id number] Reason(s): NO CONTRAST. Pending HCG. ? renal stone While performing the above CT examination, radiation dose reduction was accomplished utilizing automated exposure control, adjusting of the mA and kV based on the p atient's body size and/or the use of imperative reconstructive techniques. CT dose: 645.9 mGycm Electronically Reviewed and Signed By Theodore Leiva M.D. , 09/01/20 10:48, [facility] Transcribe Initials: RILEY , Transcribe Date: 08/27/20 23:50, Dictation Date: Copy for: JO MALLOY via fax Copy for: EMERGENCY DEPT via [facility] Copy for: 710 MED REC DISCHARGED Page 2 of 2 Name Value Range Interpretation Code Description Data Nati rce(s) Supporting Document(s) ID Date Data Source [id number] 08/27/2020 08:58:00 PM EST [facility] 1 OrderSheet [facility] Emergency Department [address] [place] [address] Phone #: ext- [phone] 08/27/2020 20:43 Patient: BARBARA CARRILLO Sex: F : 1995 Age: 25yWEIGHT:65.7 kg (S) HEIGHT:62 inches (S) BMI:26.5ALLERGIES: No Known Drug AllergyCHIEF COMPLAINT: abdominal painDIAGNOSIS: Kidney stone, Cyst of ovaryLAB ORDERSOrder Description Priority Entered Acknowledged InitialedUrinalysis (Clean STAT 21:05 08/27/2020 21:05 Danyelle,Catch) Arnold Bassett R.N., R.N.; Verbal order per; Mayank Reyes-CCBC w Diff STAT 21:12 08/27/2020 21:22 Mayank Bassett R.N. P.A.-C;CMP STAT 21:12 08/27/2020 21:22 Mayank Bassett.N. P.A.-C;Lipase STAT 21:12 08/27/2020 21:22 Mayank Bassett R.N. P.A.-C;Beta-HCG, Qual STAT 21:12 08/27/2020 21:22 Danyelle,Serum Mayank MacielN. P.A.- C;Lactic Acid STAT 21:12 08/27/2020 21:22 Mayank Bassett.N. P.A.-C;Culture, Urine STAT 21:12 08/27/2020 21:17 Danyelle,(Urine, Clean Mayank Vasquez.NRebecaCatch) P.A.-C;PT/PTT STAT 21:12 08/27/2020 21:22 Mayank Bassett.N. P.A.-C;DIAGNOSTIC STUDY ORDERSOrder Description Priority Entered Acknowledged InitialedCT ABD PEL W/O STAT 21:30 08/27/2020 21:31 Sorbkeyla,Oral W/O IV Mayank Vasquez.Eduin. 2 OrderSheet [facility] Emergency Department [address] [place] [address] Phone #: ext- [phone] 08/27/2020 20:43 Patient: BARBARA CARRILLO Sex: F : 1995 Age: 25yContrast P.A.-C;(Oxygen?(No))(IV?(No)) Reason for Study: NO CONTRAST. Pending HCG. ? renal stoneMEDICATION/IV/DRIP/FLUID ORDERSOrder Description Priority Entered Acknowledged InitialedNS IV : Bolus 500 21:12 08/27/2020 21:32 Sorbero,mL, then 100 mL/hr Mayank Vasquez.N. P.A.-C;Zofran IVP 4 mg 21:12 08/27/2020 21:32 Mayank Bassett.N. P.A.-C;Tylenol 1 g PO X1 21:12 08/27/2020 21:32 Sorbero,dose: 1000 mg Mayank Barrett R.N.(NOW x1) P.A.- C;Benadryl 25 mg IVP 21:12 08/27/2020 21:33 Sorbero,X1 dose: 25 mg Mayank Vasquez.NRebeca(NOW x1) P.A.-C;Rocephin 21:58 08/27/2020 22:22 Sorbero,(1gm/50mL) IVPB Mayank Barrett R.N.1000 mg with P.A.-C;Dextrose 50 mlspike bag (D5W)Toradol IVP 15 mg 23:02 08/27/2020 23:08 Mayank Brush R.N. P.A.-C;GENERAL ORDERSOrder Description Priority Entered Acknowledged InitialedNPO 21:12 08/27/2020 21:16 Mayank Bassett R.N. P.A.-C;Saline Lock 21:12 08/27/2020 21:22 Mayank BassettN. P.A.- C;[Electronically signed by Esthela Brush R.N. (23:20 08/27/2020)][Electronically signed by Mayank Paredes P.A.-C (00:13 08/28/2020)][Electronically locked by Esthela Brush R.N. (23:20 08/27/2020)] Name Value Range Interpretation Code Description Data Nati rce(s) Supporting Document(s) ID Date Data Source [id number] 08/27/2020 08:58:00 PM EST [facility] 1 Medication Reconciliation Report [facility] Emergency Department [address] [place] [address] Phone #: ext- [phone] 08/27/2020 20:43 Patient: BARBARA CARRILLO Sex: F [...] PMThe following Medications were prescribed to the patient:[place] 5 mg-325 mg tablet Take 1 tablet three times a day for 3 days -- Dispense 9 tablet. Refills: 0.Substitution permitted.Pharmacy - [facility] [address] ; [place] [address]. . 2 Medication Reconciliation Report [facility] Emergency Department [address] [place] [address] Phone #: ext- [phone] 08/27/2020 20:43 Patient: BARBARA CARRILLO Sex: F : 1995 Age: 25ynaproxen 500 mg tablet Take 1 tablet twice a day for 7 days -- Dispense 14 tablet. Refills: 0.Substitution permitted.Pharmacy - [facility] [address] ; [place] [address]. .Flomax 0.4 mg capsule Take 1 capsule once a day for 14 days -- To help with expulsion of stone.recommend to take in the AM. Dispense 14 capsule. Refills: 0. Substitution permitted.Pharmacy - [facility] [address] ; [place] [address]. . -- Mayank Paredes P.A.-C Name Value Range Interpretation Code Description Data Nati rce(s) Supporting Document(s) ID Date Data Source [id number] 08/27/2020 08:58:00 PM EST [facility] 1 Medication Administration Record [facility] Emergency Department [address] [place] [address] Phone #: ext- [phone] 08/27/2020 20:43 Patient: BARBARA CARRILLO Sex: F : 1995 Age: 25yWeight: 65.7 kgHeight/Length: 62 inBMI: 26.5ALLERGIES: No Known Drug Allergy Date/Time Medication Administered Medication OrderedStart NS [IV] NS IV : Bolus 500 mL, then 42783:32 08/27/2020 Dose: IV Fluids mL/hrSArnold larry R.N. Rate: 100 mL/hr over 5 hour(s)---- Bolus: 500 mL over 30 minute(s)Stop Dispensed: 1000 mL bag23:09 08/27/2020 Site: #1 left Esthela Mccloud R.NRebecaGiven ZOFRAN [IVP] (ONDANSETRON HCL) Zofran IVP 4 [...] ACStart ROCEPHIN (1GM/50ML) [IVPB] Rocephin (1gm/50mL) IVPB 382510:22 08/27/2020 (CEFTRIAXONE SODIUM) mg with Dextrose 50 ml spike bagSArnold larry, R.N. Dose: 1 gm IVPB (D5W)---- Rate: 100 mL/hr over 30 minute(s)Stop Dispensed: 50 mL bag22:55 08/27/2020 Site: #1 left Esthela Mccloud R.N.Given TORADOL [IVP] ( KETOROLAC Toradol IVP 15 mg23:08 08/27/2020 TROMETHAMINE)Esthela Brush R.N. Dose: 15 mg IVP Site: #1 left AC Name Value Range Interpretation Code Description Data Nati rce(s) Supporting Document(s) ID Date Data Source [id number] 08/27/2020 08:58:00 PM [facility] 1 General Instructions [facility] Emergency Department [address] [place] [address] Phone #: ext- [phone] 08/27/2020 20:43 Patient: [...] does not exceed state maximum supply ofmedicationsPrescription Medications:[place] 5 mg-325 mg tablet Take 1 tablet three times a day for 3 days -- Dispense 9 tablet. Refills: 0.Substitution permitted.Pharmacy - [facility] [address] ; [place] [address]. .naproxen 500 mg tablet Take 1 tablet twice a day for 7 days -- Dispense 14 tablet. Refills: 0.Substitution permitted.Pharmacy - [facility] [address] ; [place] [address]. FaxNumber: .Flomax 0.4 mg capsule Take 1 capsule once a day for 14 days -- To help with expulsion of stone.recommend to take in the AM. Dispense 14 capsule. Refills: 0. Substitution permitted. 2 General Instructions [facility] Emergency Department [address] [place] [address] Phone #: ext- [phone] 08/27/2020 20:43 Patient: BARBARA CARRILLO Sex: F : 1995 Age: 25yPharm[address] - [facility] [phone] ; [place] [address]. .Follow-up:Return to the emergency department as needed. Follow up with your healthcare provider in about twodays if not better. Call for an appointment.Understanding of the discharge instructions verbalized by patient.Follow-up with: Johny Bills M.D., Urology, , [address] [place] [address], [facility]ly [facility] Follow up. Reason for referral: evaluation and [...] 6 mm). Or, the 3 General Instructions [facility] Emergency Department [address] [place] [address] Phone #: ext- [phone] 08/27/2020 20:43 Patient: [...] kidney stones or have 4 General Instructions [facility] Emergency Department [address] [place] [address] Phone #: ext- [phone] 08/27/2020 20:43 Patient: [...] had an X-ray, CT 5 General Instructions [facility] Emergency Department [address] [place] [address] Phone #: lpj- [phone] 08/27/2020 20:43 Patient: BARBARA CARRILLO Sex: F : 1995 Age: 25yscan, or other diagnostic test, you will be told of any new findings that may affect your care.Call [phone] if you have any of these: Weakness, [...] for 8 hours and increasing bladder pressure [phone] [employer]. [address] [place] [address]. All rights reserved. This information is not intended as asubstitute for professional medical care. Always follow your healthcare professional's instructions.Blood in the Urine 6 General Instructions [facility] Emergency Department [address] [place] [address] Phone #: ext- [phone] 08/27/2020 20:43 Patient: [...] had blood in your 7 General Instructions [facility] Emergency Department [address] [place] [address] Phone #: ext- [phone] 08/27/2020 20:43 Patient: [...] the nose or gums or easy bruising [phone] [employer]. [address] [place] [address]. All rights reserved. This information is not intended as asubstitute for professional medical care. Always follow your healthcare professional's instructions.Ovarian CystsThe ovaries are two small organs located on each side of a woman's uterus (womb). They are part ofthe female reproductive system. Ovarian cysts are sacs filled with fluid or tissue that for m on or insidethe ovaries. 8 General Instructions [facility] Emergency Department [address] [place] [address] Phone #: ext- [phone] 08/27/2020 20:43 Patient: [...] pain, your healthcare provider may recommend using javt-izp-adkcboc pain medicine. If needed, your provide may [...] Weakness, dizziness, or fainting Abnormal vaginal bleeding [phone] [employer]. [address] [place] [address]. All rights reserved. This information is not intended as asubstitute for professional medical care. Always follow your healthcare professional's instructions. You have been given the following additional information: 9 General Instructions [facility] Emergency Department [address] [place] [address] Phone #: ext- [phone] 08/27/2020 20:43 Patient: BARBARA CARRILLO Eduin Sex: F : 1995 Age: 25yKidney Stone w/ ColicHematuriaOvarian Cyst(Electronically signed by Mayank Paredes P.A.-C 08/28/2020 00:13) Name Value Range Interpretation Code Description Data Nati rce(s) Supporting Document(s) ID Date Data Source [id number] 08/27/2020 08:58:00 PM EST [facility] 1 Clinical Report - Nurses [facility] Emergency Department [address] [place] [address] Phone #: ext- [phone] 08/27/2020 20:43 Patient: BARBARA CARRILLO Sex: F : 1995 Age: 25yTRIAGEArrived by private vehicle. Historian: patient.Acuity: LEVEL 4.Chief Complaint: PELVIC PAIN and PAINFUL URINATION and FREQUENCY.Alert. No acute distress.Onset. (10 days). ( Patient states she [facility] having [facility]TI symptoms about [facility]. Pt states [...] normal menstrual period was 3 weeks ago- Startedmaw , mirena. Uses an intrauterine device.SOCIAL HX: Never smoker. Occasional alcohol use. No drug use. The patient was offered HIV testingbut declined. Patient education was provided. [facility] was offered hepatitis C testing but declined.Patient education was provided. ( COVID screen negative). The patient has not traveled outside the.[place].Infectious disease exposure: No infectious disease exposure. Patient is not a known carrier of tuberculosis, 2 Clinical Report - Nurses [facility] Emergency Department [address] [place] [address] Phone #: ext- [phone] 08/27/2020 20:43 Patient: [...] Bassett R.N. 3 Clinical Report - Nurses [facility] Emergency Department [address] [place] [address] Phone #: ext- [phone] 08/27/2020 20:43 Patient: BARBARA CARRILLO Sex: F : 1995 Age: 25y21:22 08/27/2020 Tylenol (APAP) PO Tablets 1000 mg given. Allergies verified and confirmed 5 rights.Information reviewed with patient including reason for taking this medication, signs of allergic reaction andprecautions. Verbalizes un derstanding. --08/27/20 Arnold Bassett R.N.:08/27/2020 Site #1 started via IV in the left antecubital space with an 20g angiocath, with aseptictechnique and good blood return; one attempt. Blood drawn: rainbow set. Labeled in the presence of thepatient and sent to the lab. Saline lock flushed with 10 mL saline. --08/27/20 Arnold Bassett R.N.08/27/2020 Started bag #1 1000 mL IV Fluids [...] signs ofallergic reaction and precautions. Verbalizes understanding. --08/27/20 Arnold Bassett R.N.08/27/2020 Zofran (Ondansetron HCl) IVP 4 mg given [...] Brakes of bed on. --22:00 08/27/20 Arnold BassettRRebecaN.22:12 08/27/20. Patient transported to [place] by wheelchair with quality lab technician. --22:12 08/27/20 Arnold Bassett R.N.22:22 08/27/2020 [...] larry R.N. 4 Clinical Report - Nurses [facility] Emergency Department [address] [place] [address] Phone #: ext- [phone] 08/27/2020 20:43 Patient: BARBARA CARRILLO Sex: F : 1995 Age: 25y 22:55 08/27/2020 ROCEPHIN (1GM/50ML) IVPB via IV site #1 Discontinued: completed. Total amount infused: 50 mL. IV patency established. IV site checked: no pain, redness, or swelling. IV flushed thoroughly. --23:08/27/20 Esthela Brush R.N. 23:08 08/27/2020 Toradol (Ketorolac Tromethamine) IVP 15 mg given [...] use given to the patient per protocol. Shaun reviewe d. Reviewed referral to a urologist. Patient verbalized understanding. Written instructions provided in [place]ambian. The patient was discharged home. She left [...] rce(s) Supporting Document(s) ID Date Data Source [id number] 08/27/2020 08:58:00 PM [facility] 1 Clinical Report - Physicians/Mid Levels [facility] Emergency Department [address] [place] [address] Phone #: ext- [phone] 08/27/2020 20:43 Patient: [...] days ago and was seen at the [facility] and they gave her macrobid. Pt states [...] use. 2 Clinical Report - Physicians/Mid Levels [facility] Emergency Department [address] [place] [address] Phone #: ext- [phone] 08/27/2020 20:43 Patient: [...] 2.5) 3 Clinical Report - Physicians/Mid Levels [facility] Emergency Department [address] [place] [address] Phone #: ext- [phone] 08/27/2020 20:43 Patient: [...] Male GFR Interprentation 20-49 yrs >60 mL/min Yfdwxc14-17 yrs >56 mL/min Normal 60-69 yrs >49 mL/min Normal 70-79yrs>42 mL/min Normal 80 and above >35 mL/min Normal Female GFRInterpretation 20-39 yrs >60 mL/min Normal 40-49 yrs >58 mL/minNormal 50-59 yrs >51 mL/min Normal 60-69 yrs >45 mL/min Okbsse79-51 yrs >39 mL/min Normal 80 and above >32 mL/min NormalLipase: (JONATHON: 08/27/2020 21:22) ( MsgRcvd 08/27/2020 21:52) Final results Test Result Flag Units (Reference) LIPASE 29 U/L (13 - 60)Beta-HCG, Qual Serum: (JONATHON: 08/27/2020 21:22) ( MsgRcvd 08/27/2020 21:50) Final results Test Result Flag Units (Reference) HCG SERUM QUAL NEGATIVE (NORMAL: NEGAT HCG SERUM QL REENTER NEGATIVE (NORMAL: NEGAT { KIT LOT # [id number] ){ KIT EXP DATE07/08/21 ){ PROCEDURAL CONTROL VALID) 4 Clinical Report - Physicians/Mid Levels [facility] Emergency Department [address] [place] [address] Phone #: ext- [phone] 08/27/2020 20:43 Patient: BARBARA CARRILLO Sex: F : 1995 Age: 25y Lactic Acid: (JONATHON: 08/27/2020 21:22) ( [facility] 08/27/2020 21:31) Final results Test Result Flag Units (Reference) LACTIC ACID 0.9 MMOL/L (0.2 - 2.2) PT/PTT: (JONATHON: 08/27/2020 21:22) ( [facility] 08/27/2020 21:38) Final results Test Result Flag Units (Reference) PROTIME 12.7 SECONDS (11.0 - 15.5) INR 0.91 L (0.93 - 1.23) PTT 25.8 SECONDS (24.8 - 36.7) \\BLDo\\INR INTERPRETATION\\BLDx\\ Therapeutic range for Coumadin and related oral anticoagulants. -International Normalized Ratio (INR): 2.0 - 3.0 for Venous Thrombosis, Pulmonary Embolus, Tissue heart valves, Acute AK Atrial Fibrillation, Valvular heart disease and recurrent Systemic Embolism. -International Normalized Ratio (INR): 2.5 - 3.5 for Mechanical Prosthetic valve. Urinalysis: (JONATHON: 08/27/2020 21:06) ( [facility] 08/27/2020 21:22) Final results Test Result Flag [...] Denies any new issues, concerns, or complaints. PE demos NV intact b/l UE and LE. Noted CVA tendness. ? renal stone as no improvmenet of s/s with abx. Will order labs and imagng for furhter eval. Pending resuts. Reviwed results. 5 Clinical Report - Physicians/Mid Levels [facility] Emergency Department [address] [place] [address] Phone #: ext- [phone] 08/27/2020 20:43 Patient: [...] medications 6 Clinical Report - Physicians/Mid Levels [facility] Emergency De partment [address] [place] [address] Phone #: ext- [phone] 08/27/2020 20:43 Patient: BARBARA CARRILLO Sex: F : 1995 Age: 25y Prescription Medications: [place] 5 mg-325 mg tablet Take 1 tablet three times a day for 3 days -- Dispense 9 tablet. Refills: 0. Substitution permitted. [facility] [phone] ; [place] [address]. . naproxen 500 mg tablet Take 1 tablet twice a day for 7 days -- Dispense 14 tablet. Refills: 0. Substitution permitted. [facility] [employer] ; [place] [address]. . Flomax 0.4 mg capsule Take 1 capsule once a day for 14 days -- To help with expulsion of stone. recommend to take in the AM. Dispense 14 capsule. Refills: 0. Substitution permitted. [facility] [address] ; [place] [address]. . Follow-up: Return to the emergency department as needed. Follow up with your healthcare provider in about two days if not better. Call for an appointment. Understanding of the discharge instructions verbalized by patient. Follow-up with: Johny Bills M.D., Urology, , [address] [place] [address], [id number] Follow up. Reason for referral: evaluation and treatment.(Electronically signed by Mayank Paredes P.A.-C 08/28/2020 00:13) Name Value Range Interpretation Code Description Data Nati rce(s) Supporting Document(s) ID Date Data Source [id number] 09/01/2020 12:12:00 PM EST [facility] Name Value Range Interpretation Code Description Data Nati rce(s) Supporting Document(s) CULTURE URINE [facility] spital _CULTURE URINE_$$[id number]$$[id number]$$[id number]$$[id number]$$[id number]$$312493$$567431$$987525$$007014$$ 979280$$833023$$401509$$235501$$380735$$773169$$409106$$811130$$163079$$102686$$ 316870$$876185$$825278$$507508$$848942$$798362$$433057$$[id number] -- Continued on next page --Patient: LORENA JIMENEZ Eduin Order: Page 2Culture: CULTURE URINE Status: Final ==== -- Continued on next page --Patient: LORENA JIMENEZ Eduin Order: Page 2Culture: CULTURE URINE Status: Prelim =====$$[id number]$$[id number] DATE/TIME: 09/01/2020 12:06Culture: CULTURE URINE Status: FinalUrine Culture,Comprehensive: [id number] urogenital flora10,000-25,000 colony forming units per mL Previous result entered on 08/31/2020 03:50 ET Specimen has been received and testing has been initiated.P1 Test performed by: [facility] CLIA #: [id number] [address] [id number] [facility] [id number] Director : Tyree Sutherland MD NPI #:Route Salesman : 09/01/[email or web address].SENT REF 09/01/20.1213.XMT.SENT REF ID Date Data Source [id number] 08/27/2020 09:52:00 PM [facility] Name Value Range Interpretation Code Description Data Nati rce(s) Supporting Document(s) Lipase [Enzymatic activity/volume] in Serum or Plasma 29 U/L 13 - 60 [facility] ID Date Data Source [id number] 08/27/2020 09:52:00 PM [facility] Name Value Range Interpretation Code Description Data Nati rce(s) Supporting Document(s) COMPREHENSIVE METABOLIC PANEL [facility] COMPREHENSIVE METABOLIC PANEL Sodium [Moles/volume] in Serum or Plasma 138 mEq/L 134 - 153 [facility] Potassium [Moles/volume] in Serum or Plasma 3.8 mEq/L 3.6 - 5.0 [facility] Chloride [Moles/volume] in Serum or Plasma 107 mEq/L 98 - 107 [facility] Carbon dioxide, total [Moles/volume] in Serum or Plasma 26 MEQ/L 22 - 30 [facility] Glucose [Mass/volume] in Serum or Plasma 95 MG/DL 65 - 110 [facility] BUN 12 MG/DL 7 - 21 [facility] al Creatinine [Mass/volume] in Serum or Plasma 0.5 MG/DL 0.7 - 1.5 L [facility] BUN/CREAT 24 8 - 27 [facility] al Protein [Mass/volume] in Serum or Plasma 6.7 G/DL 6.3 - 8.2 [facility] Albumin [Mass/volume] in Serum or Plasma 4.0 G/DL 3.9 - 5.0 [facility] Globulin [Mass/volume] in Serum by calculation 2.7 GM/DL 2.4 - 3.2 [facility] A/G RATIO 1.5 0.8 - 2.0 [facility] Calcium [Mass/volume] in Serum or Plasma 9.0 MG/DL 8.4 - 10.2 [facility] Bilirubin.total [Mass/volume] in Serum or Plasma <0.7 MG/DL 0.2 - 1.3 [facility] Alkaline phosphatase [Enzymatic activity/volume] in Serum or Plasma 93 U/L 38 - 126 [facility] Aspartate aminotransferase [Enzymatic activity/volume] in Serum or Plasma 18 U/L 5 - 40 [facility] Alanine aminotransferase [Enzymatic activity/volume] in Seru m or Plasma 21 U/L 7 - 56 [facility] Anion gap 3 in Serum or Plasma 5.0 mmol/L 8.0 - 16.0 L [facility] AGE 25 yrs [facility] al NON-AA GFR >60 mL/min [facility] ital AFR AMER GFR >60 mL/min [facility] Ho spital Male GFR In terprentation [...] >32 mL/min Normal ID Date Data Source [id number] 08/27/2020 09:49:00 PM EST [facility] Name Value Range Interpretation Code Description Data Nati rce(s) Supporting Document(s) HCG SERUM QUAL NEGATIVE NORMAL: NEGATIVE [facility] HCG SERUM QL REENTER NEGATIVE NORMAL: NEGATIVE Ca [facility] { KIT LOT # [id number] ){ KIT EXP DATE 07/08/21 ){ PROCEDURAL CONTROL VALID ) ID Date Data Source [id number] 08/27/2020 09:37:00 PM EST [facility] Name Value Range Interpretation Code Description Data Nati rce(s) Supporting Document(s) Prothrombin time (PT) 12.7 SECONDS 11.0 - 15.5 [facility] INR in Platelet poor plasma by Coagulation assay 0.91 0.93 - 1. 23 L [facility] aPTT in Blood by Coagulation assay 25.8 SECONDS 24.8 - 36.7 [facility] \\BLDo\\INR INTERPRETATION\\BLDx\\ Therapeutic range for Coumadin and related oral anticoagulants. - International Normalized Ratio (INR): 2.0 - 3.0 for Venous Thrombosis, Pulmonary Embolus, Tissue heart valves, Acute [place] Atrial Fibrillation, Valvular heart disease and recurrent Systemic Embolism. - International Normalized Ratio (INR): 2.5 - 3.5 for Mechanical Prosthetic valve. ID Date Data Source [id number] 08/27/2020 09:32:00 PM EST [facility] Name Value Range Interpretation Code Description Data Nati rce(s) Supporting Document(s) CBC W/AUTOMATED DIFF [facility] COMPLETE BLOOD COUNT Leukocytes [#/volume] in Blood by Automated count 6.0 10^3/uL 4.2 - 1 1.0 [facility] Erythrocytes [#/volume] in Blood by Automated count 4.57 10^6/uL 4. 20 - 5.40 [facility] Hemoglobin [Mass/volume] in Blood 13.4 g/dL 12.0 - 16.0 [facility] Hematocrit [Volume Fraction] of Blood by Automated count 38.8 % 3 7.0 - 47.0 [facility] Erythrocyte mean corpuscular volume [Entitic volume] by Auto mated count 84.9 fL 81.0 - 101 [facility] Erythrocyte mean corpuscular hemoglobin [Entitic mass] by Automated count 29.3 pg 27.0 - 34.0 [facility] Erythrocyte mean corpuscular hemoglobin concentration [Mass/volume] by Automated count 34.5 g/dL 31.0 - 36.0 [facility] Erythrocyte distribution width [Ratio] by Automated count 12.8 % 11.5 - 14.5 [facility] Platelets [#/volume] in Blood by Automated count 293 10^3/uL 150 - 45 0 [facility] Platelet mean volume [Entitic volume] in Blood by Automated count 10.2 fL 7.4 - 10.4 [facility] Neutrophils/100 leukocytes in Blood by Automated count 46.1 % 37. 0 - 80.0 [facility] Lymphocytes/100 leukocytes in Blood by Manual count 39.7 % 25.0 - 40.0 [facility] Monocytes/100 leukocytes in Blood by Automated count 11.1 % 3.0 - 8.0 H [facility] Eosinophils/100 leukocytes in Blood by Automated count 2.0 % 0.0 - 7.0 [facility] Basophils/100 leukocytes in Blood by Automated count 0.8 % 0.0 - 2.5 [facility] %IG 0.3 % 0.0 - 0.0 [facility] %[facility] 0.0 % 0.0 - 0.0 [facility] al Neutrophils [#/volume] in Blood by Automated count 2.78 10^3/uL 2.00 - 6.90 [facility] Lymphocytes [#/volume] in Blood by Automated count 2.40 10^3/uL 0.60 - 3.40 [facility] Monocytes [#/volume] in Blood by Automated count 0.67 10^3/uL 0.00 - 0.90 [facility] Eosinophils [#/volume] in Blood by Automated count 0.12 10^3/uL 0.00 - 0.70 [facility] Basophils [#/volume] in Blood by Automated count 0.05 10^3/uL 0.00 - 0.20 [facility] #IG 0.02 10^3/uL 0.00 - 0.10 [facility] H [facility]spital #NRBC 0.00 10^3/uL 0.00 - 0.00 [facility] ospital MANUAL DIFF NOT INDICATED [facility] RBC MORPH NOT INDICATED [facility] Ho spital ID Date Data Source [id number] 08/27/2020 09:31:00 PM EST [facility] Name Value Range Interpretation Code Description Data Nati rce(s) Supporting Document(s) Lactate [Moles/volume] in Serum or Plasma 0.9 MMOL/L 0.2 - 2.2 [facility] ID Date Data Source [id number] 08/27/2020 09:21:00 PM EST [facility] Name Value Range Interpretation Code Description Data Nati rce(s) Supporting Document(s) URINALYSIS [facility] Hospi abby URINALYSIS SOURCE Clean Catch [facility] Hosp ital COLOR yellow NORMAL: Yellow [facility] H ospital CLARITY clear NORMAL: Clear [facility] Ho spital Specific gravity of Urine by Test strip 1.020 1.001 - 1.030 [facility]5 5 - [facility] [Mass/volume] in Urine by Test strip NORM NORMAL: Negat [facility] Bilirubin.total [Presence] in Urine by Test strip NEG NORMAL: Negative [facility] Ketones [Presence] in Urine by Test strip NEG NORMAL: Negative [facility] Protein [Mass/volume] in Urine by Test strip NEG NORMAL: Negat [facility] Nitrite [Presence] in Urine by Test strip NEG NORMAL: Negative [facility] BLOOD 150 NORMAL: Negative [facility] Leukocyte esterase [Presence] in Urine by Test strip NEG LIVAN L: Negative [facility] Urobilinogen [Mass/volume] in Urine by Test strip NOR less wale n 1.0 mg/dL [facility] MICROSCOPIC See Below [facility] ital Erythrocytes [#/volume] in Urine by Test strip 7 - 10 NORMAL: NON E SEEN A [facility] EPITHELIAL FEW NORMAL: NONE SEEN [facility] Mucus [Presence] in Urine sediment by Light microscopy Trace NORMAL: NONE SEEN [facility] ID Date Data Source [id number] 07/02/2020 03:46:00 PM EDT MED[facility] ([facility]) Name Value Range Interpretation Code Description Data Nati rce(s) Supporting Document(s) Inhouse Urine Test Laboratory test result [facility] ([facility]) Procedure Social History Code Duration Value Status Description Data Source(s ) Smoking 06/13/2021 12:00:00 AM EDT Never smoker completed Never s fatou [facility] Smoking 03/27/2021 12:00:00 AM EDT Never Smoker completed Never S fatou eCW1 ([facility]) Vital Signs ID Date Data Source UNK Name Value Range Interpretation Code Description Data Source(s) Body height 157.48 cm 157.48 cm [facility] ([facility]) Body weight 68.946 kg 68.946 kg [facility] ([facility] Systolic blood pressure 92 mm[Hg] 92 mm[Hg] N extGen ([facility]) Diastolic blood pressure 70 mm[Hg] 70 mm[Hg] [facility] ([facility]) Body mass index (BMI) [Ratio] 27.80 kg/m2 Overweight 27.80 kg/m2 [facility] Body weight 152.8 [lb_av] 152.8 [lb_av] eCW1 ([facility]) Body weight 69.3 kg 69.3 kg W1 ([facility]) Body height 62 [in_i] 62 [in_i] eCW1 ([facility]) Body mass index (BMI) [Ratio] 27.94 kg/m2 27.94 kg/m2 [facility] ([facility]) Heart rate 75 /min 75 /min eCW1 ([facility]) Respiratory rate 16 /min 16 /min eCW1 ([facility]) Body temperature 97.8 [degF] 97.8 [degF] eCW1 ( [facility]) Systolic blood pressure 112 mm[Hg] 112 mm[Hg] e CW1 ([facility]) Diastolic blood pressure 66 mm[Hg] 66 mm[Hg] eCW1 ([facility]) Systolic blood pressure 18 mm[Hg] 18 mm[Hg] M EDENT ([facility] Diastolic blood pressure 72 mm[Hg] 72 mm[Hg] MEDENT ([facility] Body temperature 97.5 [degF] 97.5 [degF] [facility] ([facility] Heart rate 76 /min 76 /min [facility] ([facility] Respiratory rate 16 /min 16 /min MEDENT ( [facility] Body mass index (BMI) [Ratio] 27.8 kg/m2 27.8 k g/m2 MED[facility] ([facility] Oxygen saturation in Arterial blood by Pulse oximetry 98 % 98 % JUDYENT ([facility] ([place]), ([facility]) Systolic blood pressure--supine 116 mm[Hg] 116 mm[Hg] MEDENT ([facility] P-71 Diastolic blood pressure--supine 60 mm[Hg] 60 mm[Hg] MEDENT ([facility] P-71 Systolic blood pressure--sitting 106 mm[Hg] 106 mm[Hg] MEDENT ([facility] P-72 Diastolic blood pressure--sitting 60 mm[Hg] 60 mm[Hg] MEDENT ([facility] P-72 Systolic blood pressure--standing 102 mm[Hg] 10 2 mm[Hg] MEDENT ([facility] P-72 Diastolic blood pressure--standing 60 mm[Hg] 6 0 mm[Hg] MEDENT ([facility] P-72 Body height 62 [in_i] 62 [in_i] MEDENT ([facility] 5'2" Body weight 152.00 [lb_av] 152.00 [lb_av] MEDEN T ([facility] [place] body weight 110 [lb_av] 110 [lb_av] MEDEN T ([facility] Systolic blood pressure 106 mm[Hg] 106 mm[Hg] M EDENT ([facility]) Diastolic blood pressure 70 mm[Hg] 70 mm[Hg] MEDENT ([facility], [facility]) Heart rate 51 /min 51 /min MEDENT ([facility], [facility]) Respiratory rate 16 /min 16 /min MEDENT ( [facility]) Oxygen saturation in Arterial blood by Pulse oximetry 98 % 98 % MED[facility] ([facility]) Body temperature 98.3 [degF] 98.3 [degF] MEDENT ([facility], [facility]) Body weight 150.00 [lb_av] 150.00 [lb_av] MEDEN T ([facility], [facility]) Body height 62 [in_i] 62 [in_i] MEDENT ([facility]) 5'2" Body mass index (BMI) [Ratio] 27.4 kg/m2 27.4 k g/m2 MED[facility] ([facility]) Systolic blood pressure 98 mm[Hg] 98 mm[Hg] M EDENT ([facility]) Diastolic blood pressure 70 mm[Hg] 70 mm[Hg] MEDENT ([facility]) Heart rate 75 /min 75 /min MEDENT ([facility]) Body temperature 97.7 [degF] 97.7 [degF] MEDENT ([facility]) Body weight 149.00 [lb_av] 149.00 [lb_av] MEDEN T ([facility]) Body weight 67.586 kg 67.586 kg MEDENT ([facility]) Body height 62 [in_i] 62 [in_i] MEDENT ([facility]) 5'2" Body mass index (BMI) [Ratio] 27.2 kg/m2 27.2 k g/m2 MEDENT ([facility]) Body surface area Derived from formula 1.69 m2 1.69 m2 [facility]
[2021-08-05] MEDS ORDERED: ACETAMINOPHEN 500 MG TAB PO ONE (06:40)
[2021-08-05] MEDS ORDERED: diphenhydrAMINE 50MG/ML VIAL (J1200) IV ONE (06:40)
[2021-08-05] MEDS ORDERED: METOCLOPRAMIDE INJ 10MG/2ML VIAL (J2765 PER 1) IV ONE (06:40)
[2021-08-05] MEDS ORDERED: NS 1,000 ML IV ONE (06:40)
[2021-08-05 07:49] LABS: BASO % 0.5 % (0.0-1.0); EOS # 0.1 10^3/uL (0.0-0.5); EOS % 0.8 % (0.0-3.0); HEMATOCRIT 37.4 % (36.0-47.0); HEMOGLOBIN 13.1 g/dl (12.0-15.5); LYMPH # 1.9 10^3/uL (1.5-5.0); LYMPH % 31.5 % (24.0-44.0); MEAN CORPUSCULAR HEMOGLOBIN 30.8 pg (27.0-33.0); MONO # 0.7 10^3/uL (0.0-0.8); MONO % 10.6 % (2.0-8.0); NEUTROPHILS # 3.5 10^3/uL (1.5-8.5); PLATELET COUNT, AUTOMATED 249 10^3/uL (150-450); RED BLOOD COUNT 4.25 10^6/uL (4.00-5.40); WHITE BLOOD COUNT 6.2 10^3/uL (4.0-10.0)
[2021-08-05 08:41] LABS: ALBUMIN 3.1 GM/DL (3.2-5.2); ALT/SGPT 17 U/L (12-78); BILIRUBIN,DIRECT 0.1 MG/DL (0.0-0.2); BILIRUBIN,TOTAL 0.4 MG/DL (0.2-1.0); BLOOD UREA NITROGEN 5 MG/DL (7-18); CALCIUM LEVEL 8.8 MG/DL (8.5-10.1); CARBON DIOXIDE LEVEL 24 MEQ/L (21-32); CHLORIDE LEVEL 109 MEQ/L (98-107); GLOMERULAR FILTRATION RATE > 60.0 (>60); GLUCOSE, FASTING 84 MG/DL (70-100); HCG, SERUM QUANTITATIVE 51164 MIU/ML; LIPASE 89 U/L (73-393); POTASSIUM SERUM 3.8 MEQ/L (3.5-5.1); SODIUM LEVEL 138 MEQ/L (136-145); TOTAL PROTEIN 6.7 GM/DL (6.4-8.2)
[2021-08-05 08:49] VITALS: BP 113/57
== END 2021-08-05 09:07 | disposition home or self-care (01) ==
LOC: M ED 21:17
DX: R51.9 Headache, unspecified (principal); Z3A.14 14 weeks gestation of pregnancy; O99.342 Other mental disorders complicating pregnancy, second trimester; F33.9 Major depressive disorder, recurrent, unspecified; F41.9 Anxiety disorder, unspecified; Z91.040 Latex allergy status
CPT/HCPCS: 80048; 80076; 81001; 83690; 84702; 85025; 96361; 96374; 96375; 99284; J1200; J2765

== ENCOUNTER 2021-12-03 16:53 | Outpatient (CLI) | payer OTHER ==
[~2021-12-03] VITALS: Ht 157.5 cm; Wt 76.3 kg
[~2021-12-03 16:53] MED LIST changes: +FLUO-96 PO; -FLUO20CA20 PO
[2021-12-03] MEDS ORDERED: HOME MED LIST COMPLETE! XX SCH (17:00)
[2021-12-03 17:06] VITALS: BP 122/59
[2021-12-03 19:12] VITALS: BP 109/60
== END 2021-12-03 20:11 | disposition home or self-care (01) ==
LOC: M LDO 16:53
PROVIDERS: ATTEND Obstetrics & Gynecology
DX: O60.03 Preterm labor without delivery, third trimester (principal); O26.893 Other specified pregnancy related conditions, third trimester; R10.2 Pelvic and perineal pain; O34.219 Maternal care for unspecified type scar from previous cesarean delivery; Z3A.31 31 weeks gestation of pregnancy
CPT/HCPCS: 59025; G0378; G0463

== ENCOUNTER → 2022-02-09 | Outpatient (CLI) | payer OTHER | LOC: M ONCR 13:27 | PROVIDERS: ATTEND General Practice | DX: C86.6 Primary cutaneous CD30-positive T-cell proliferations (principal); Z80.9 Family history of malignant neoplasm, unspecified; Z91.040 Latex allergy status ==